=== PATIENT | female | born 1985 | race Caucasian/White ===

== ENCOUNTER → 2016-11-16 | Outpatient (CLI) | payer BC ==
[~2016-11-16] MED LIST: ATV/1 PO; BIOF500C2 PO; DOXY25TA19 PO; EFFSR150 PO; IBUP-1428 PO; ONDA4TAB46 PO; OXCA300T PO; PRT/40 PO; SUMA6KIT INJ; WLLXL300 PO; ZOLP10TA PO
[2016-11-18 22:30] LABS: HCT 37.3 % (35.0-45.0); HEMOGLOBIN A2 2.2 % (1.8-3.5); HGB 11.8 g/dL (11.7-15.5); MCH 24.3 pg (27.0-33.0); MCV 76.7 FL (80.0-100.0); RBC 4.86 Mill/uL (3.80-5.10); RDW 24.6 % (11.0-15.0)
== END | disposition home or self-care (01) ==
LOC: C.LAB1850 11:09
PROVIDERS: ATTEND Internal Medicine Hematology
DX: D50.0 Iron deficiency anemia secondary to blood loss (chronic) (principal); D56.1 Beta thalassemia

== ENCOUNTER → 2017-02-13 | Outpatient (CLI) | payer BC, OTHER ==
[~2017-02-13] VITALS: Ht 180.3 cm; Wt 132.0 kg
[~2017-02-13] MED LIST changes: +BNT10 PO; +EFF75 PO; +EFFSR75 PO; +FAMO20TA11 PO; +FAMO20TA9 PO; +MRLP17X PO; +ONDA4TAB10 SL; +OXCA300T4 PO; +PANT40TA PO; +PANT40TA2 PO; -PRT/40 PO; +SUMA6KIT SC; +TRAZ50TA35 PO; +VENL150C56 PO; +VENL150T33 PO; +VENL75CA73 PO
[2017-02-13 15:00] VITALS: Ht 180.3 cm; Wt 132.0 kg
--- NOTE | 2017-02-13 15:27 | PAT Medication Instructions ---
Service Date Feb 13, 2017. Current Home Medication List Bioflavonoid Products (Vitamin C), 1 TAB PO PRN Bupropion HCl (Bupropion HCl Xl), 300 MG PO HS Doxylamine Succinate (Sleep) (Sleep Aid), 50 MG PO HS PRN for RN Ibuprofen (Motrin), 800 MG PO PRN PRN for Pain Lorazepam (Ativan), 1 MG PO PRN Ondansetron Hcl (Zofran), 4 MG PO PRN PRN for Nausea Oxcarbazepine (Trileptal), 900 MG PO HS Sumatriptan Succinate (Imitrex Statdose), 0.5 ML INJ PRN Venlafaxine Hcl (Effexor Extended Rel), 300 MG PO HS Zolpidem Tartrate (Ambien), 10 MG PO HS PRN for PRN Medication Instructions For Your Scheduled Surgery Ibuprofen (Motrin), 800 MG PO PRN PRN for Pain (check with surgeon for instructions) - Hold the following medications the morning of surgery: Sumatriptan Succinate (Imitrex Statdose), 0.5 ML INJ PRN Bioflavonoid Products (Vitamin C), 1 TAB PO PRN - Take the following medications the morning of surgery with a sip of water: Ondansetron Hcl (Zofran), 4 MG PO PRN PRN for Nausea Lorazepam (Ativan), 1 MG PO PRN - Take the following medications as scheduled the night before surgery: Zolpidem Tartrate (Ambien), 10 MG PO HS PRN for PRN Venlafaxine Hcl (Effexor Extended Rel), 300 MG PO HS Sumatriptan Succinate (Imitrex Statdose), 0.5 ML INJ PRN Oxcarbazepine (Trileptal), 900 MG PO HS Ondansetron Hcl (Zofran), 4 MG PO PRN PRN for Nausea Lorazepam (Ativan), 1 MG PO PRN Doxylamine Succinate (Sleep) (Sleep Aid), 50 MG PO HS PRN for RN Bupropion HCl (Bupropion HCl Xl), 300 MG PO HS Bioflavonoid Products (Vitamin C), 1 TAB PO PRN If you have any questions please call us at [phone] (Lin Winn PA-C) or [phone] or [phone]
[2017-02-13 16:11] LABS: BUN/CREATININE RATIO 16.4 (10-20); CALCIUM 9.2 mg/dl (8.5-10.1); CREATININE 0.89 mg/dl (0.60-1.20); POTASSIUM 4.2 mmol/L (3.5-5.1)
== END | disposition home or self-care (01) ==
LOC: C.LAB 14:30 → EDSTATUS 03-03 07:00
PROVIDERS: ATTEND Obstetrics & Gynecology
DX: Z01.812 Encounter for preprocedural laboratory examination (principal)

== ENCOUNTER 2017-08-22 09:48 | Emergency (ER) | payer BC ==
[~2017-08-22] VITALS: Ht 180.3 cm; Wt 131.6 kg
[~2017-08-22 09:48] MED LIST changes: -BNT10 PO; -EFF75 PO; -EFFSR75 PO; -FAMO20TA11 PO; -FAMO20TA9 PO; -MRLP17X PO; -ONDA4TAB10 SL; -OXCA300T4 PO; -PANT40TA PO; -PANT40TA2 PO; -SUMA6KIT SC; -TRAZ50TA35 PO; -VENL150C56 PO; -VENL150T33 PO; -VENL75CA73 PO
[2017-08-22 09:50] VITALS: TEMP 36.8; Ht 180.3 cm; Wt 131.6 kg
[2017-08-22] MEDS ORDERED: MoRPHine SULFATE 4 MG/ML 1 ML CARP\\VIAL IV STA (10:17)
[2017-08-22] MEDS ORDERED: SODIUM CHLORIDE 0.9% 1000ML 1,000 ML IV STA ×2 (10:17)
[2017-08-22] MEDS ORDERED: ONDANSETRON INJ 2 MG/ML 2 ML VIAL IV STA (10:17)
--- NOTE | 2017-08-22 10:26 | EMERGENCY ROOM VISIT NOTE ---
History Report prepared by Shady: Sherry Wilhelm Under the Supervision of: Dr. Juan Perez M.D. First contact with patient: 09:56 Chief Complaint: ABDOMINAL PAIN Stated Complaint: SEVERE RIGHT SIDE AB PAIN Nursing Triage Summary: Right sided abd pain, nausea. History of Present Illness The patient is a 32 year old white female with no significant past medical history who presents to the ED with a cc of constant right-sided abdominal pain beginning 5 hours [employer]. She initially woke up around 4:30 am with this pain and thought it was gas. She tried to have a bowel movement, but her symptoms persisted. She tried eating yogurt, but it did not help. She did not take anything for her pain. The patient had one episode of diarrhea at 7:30. She does not think that she ate anything unusual. She states that often has pain after eating fried and fatty foods, so she is careful about what she eats. Pt rates her current pain as an 8/10 in severity. Positive nausea, upper back pain. Negative fevers, chills, cough, chest pain, vomiting, lower back pain, and urinary symptoms. Pt denies sick contacts. Pt denies recent travel, recent camping, and recent antibiotic use. Source of History: patient Onset: 5 hours [employer] Position: abdomen (right) Symptom Intensity: 8/10 Timing: constant Associated Symptoms: + nausea, + back pain (upper ), + diarrhea, No fevers, No chills, No cough, No chest pain, No vomiting, No urinary symptoms Review of Systems See HPI for pertinent positives and negatives. A total of ten systems were reviewed and were otherwise negative. Past Medical & Surgical Medical Problems: (1) Depressive Disorder Nec (2) Migraine Surgical Problems: (1) Hx of section (2) Hx of hysterectomy Family History Cancer Diabetes mellitus FH: heart disease Hypertension Social History Smoking Status: Never Smoker Alcohol Use: none Drug Use: none Marital Status: single Housing Status: lives with family Occupation Status: employed Current/Historical Medications Scheduled Bupropion HCl (Bupropion HCl Xl), 300 MG PO QAM Famotidine (Pepcid), 1 TAB PO BID Ondasetron Odt (Zofran Odt), 4 MG SL Q6H Oxcarbazepine (Trileptal), 600 MG PO HS Oxcarbazepine (Trileptal), 300 MG PO QAM Venlafaxine Hcl (Effexor Extended Rel), 300 MG PO HS Venlafaxine Hcl (Effexor), 75 MG PO DAILY Scheduled PRN Trazodone Hcl (Trazodone), 50-100 MG PO HS PRN for Sleep Allergies Coded Allergies: Adhesives (Unverified Allergy, Unknown, skin irritation with some tapes, 08/22/17) Pseudoephedrine (Verified Adverse Reaction, Intermediate, INC HR, N/V, ) Physical Exam Vital Signs Date Time Temp Pulse Resp B/P (MAP) Pulse Ox O2 Delivery O2 Flow Rate FiO2 08/22/17 14:25 81 18 104/71 98 Room Air 08/22/17 11:44 83 17 124/65 08/22/17 11:07 08/22/17 11:00 115/80 08/22/17 10:57 86 22 122/78 08/22/17 10:10 87 08/22/17 10:07 91 16 107/63 99 08/22/17 09:50 36.8 84 18 115/74 100 Room Air Physical Exam GENERAL: Awake, alert, mildly uncomfortable-appearing, NAD HENT: Normocephalic, atraumatic. EYES: Normal conjunctiva. Sclera non-icteric. NECK: Supple. No nuchal rigidity. FROM. RESPIRATORY: CTAB, no rhonchi, wheezing, crackles CARDIAC: RRR, no MRG ABDOMEN: Soft, intense RUQ pain, positive Orozco's, no lower abdominal TTP, BS+ , no CVA TTP. MSK: No chest wall TTP, no LE edema NEURO: GCS 15, CN 2-12 intact, moves all 4s on command SKIN: No rash or jaundice noted. Medical Decision & Procedures ER Provider Diagnostic Interpretation: Radiology results as stated below per my review and radiologist interpretation: CHEST ONE VIEW PORTABLE CLINICAL HISTORY: Severe right-sided abdominal pain COMPARISON STUDY: 09/08/2016 FINDINGS: The cardiac and mediastinal contours are normal. There is no evidence of focal pulmonary consolidation. There is no evidence of failure. No pleural effusions are visualized.[No free intraperitoneal air is visualized. IMPRESSION: No active disease in the chest. Electronically signed by: Jonas Penn M.D. 08/22/2017 10:37 AM Dictated Date/Time: 08/22/2017 10:37 AM ULTRASOUND RIGHT UPPER QUADRANT ABDOMEN CLINICAL HISTORY: Nausea. Right upper quadrant abdominal pain. COMPARISON STUDY: Abdominal CT dated 03/12/2014. TECHNIQUE: Real-time, grayscale, and color flow sonography of the right upper quadrant of the abdomen was performed. Images are reviewed in the transverse and longitudinal planes. The examination is degraded by large body habitus. FINDINGS: Liver: The liver is enlarged, measuring over 19 cm in length. The liver demonstrates heterogeneously increased echotexture consistent with hepatic steatosis. There is no intrahepatic biliary ductal dilatation. The main portal vein is patent. Gallbladder: The gallbladder is normal in appearance. No gallstones are identified. There is no gallbladder wall thickening or pericholecystic fluid. A sonographic Orozco's sign is reportedly absent. The common bile duct measures up to 0.4 cm in diameter. Pancreas: Not well visualized due to overlying bowel gas. Right kidney: Survey images of the right kidney demonstrate normal size and echotexture. There is no hydronephrosis. Ascites: None. IMPRESSION: 1. No acute sonographic abnormality is identified. No shadowing gallstones are seen. 2. Hepatomegaly and hepatic steatosis. 3. The pancreas was not well visualized due to overlying bowel gas. Electronically signed by: Lukas Aleman M.D. 08/22/2017 11:41 AM Dictated Date/Time: 08/22/2017 11:[address] SCAN OF THE ABDOMEN AND PELVIS WITH IV CONTRAST CLINICAL HISTORY: Right upper quadrant abdominal pain. COMPARISON STUDY: Abdominal CT dated 03/12/2014. Abdominal ultrasound dated 08/22/2017. TECHNIQUE: Following the IV administration of 92 cc of Optiray 320, CT scan of the abdomen and pelvis is performed from the lung bases to the proximal femora. Images are reviewed in the axial, sagittal, and coronal planes. IV contrast was administered without complication. A dose lowering technique was utilized adhering to the principles of ALARA. CT DOSE: 1823.51 mGy.cm FINDINGS: Lung bases: The heart is normal in size and without pericardial effusion. The lung bases are clear noting dependent atelectasis. Liver: The contrast-enhanced liver is enlarged, measuring 24.6 cm in length. The liver demonstrates diffusely diminished attenuation consistent with hepatic steatosis. Fatty sparing is seen adjacent to gallbladder fossa. There is no intrahepatic biliary ductal dilatation. The hepatic veins and portal veins are patent. Gallbladder: Unremarkable. Spleen: Normal in size and attenuation. Pancreas: Unremarkable. Adrenal glands: Unremarkable. Kidneys: The contrast enhanced kidneys are normal in size and without hydronephrosis. The kidneys enhance symmetrically. Abdominal vasculature: The abdominal aorta is normal in course and caliber. Bowel: Mild colonic fecal retention is observed. There is no bowel obstruction. The appendix is well-visualized and normal. Peritoneum: There is no intraperitoneal free air or abdominal ascites. There is a fat-containing umbilical hernia. Lymphadenopathy: None. Pelvic viscera: The bladder is normal as visualized. The uterus is surgically absent. No adnexal lesion is seen. Trace free fluid is identified in the cul-de-sac. Skeletal structures: No lytic or blastic lesions are seen. Mild sclerotic change is noted in the sacroiliac joints. IMPRESSION: 1. There are no acute infectious or inflammatory findings in the abdomen or pelvis. 2. Hepatomegaly and hepatic steatosis. 3. There is trace and likely physiologic free fluid in the cul-de-sac. Electronically signed by: Lukas Aleman M.D. 08/22/2017 12:34 PM Dictated Date/Time: 08/22/2017 12:28 PM Laboratory Results 08/22/17 10:17 Red Blood Count 4.72, Mean Corpuscular Volume 82.2, Mean Corpuscular Hemoglobin 26.7, Mean Corpuscular Hemoglobin Concent 32.5, Mean Platelet Volume 10.0, Neutrophils (%) (Auto) 79.9, Lymphocytes (%) (Auto) 13.8, Monocytes (%) (Auto) 4.9, Eosinophils (%) (Auto) 1.0, Basophils (%) (Auto) 0.2, Neutrophils # (Auto) 9.71, Lymphocytes # (Auto) 1.68, Monocytes # (Auto) 0.59, Eosinophils # (Auto) 0.12, Basophils # (Auto) 0.03 08/22/17 10:17 Test 08/22/17 00:00 08/22/17 10:17 Urine Color YELLOW Urine Appearance CLOUDY (CLEAR) Urine pH 6.0 (4.5-7.5) Urine Specific [place] 1.030 (1.000-1.030) Urine Protein NEG (NEG) Urine Glucose (UA) NEG (NEG) Urine Ketones TRACE (NEG) Urine Occult Blood NEG (NEG) Urine Nitrite NEG (NEG) Urine Bilirubin NEG (NEG) Urine Urobilinogen NEG (NEG) Urine Leukocyte Esterase NEG (NEG) Urine WBC (Auto) 1-5 /hpf (0-5) Urine RBC (Auto) 0-4 /hpf (0-4) Urine Hyaline Casts (Auto) 1-5 /lpf (0-5) Urine Epithelial Cells (Auto) >30 /lpf (0-5) Urine Bacteria (Auto) 1+ (NEG) White Blood Count 12.16 K/uL (4.8-10.8) Red Blood Count 4.72 M/uL (4.2-5.4) Hemoglobin 12.6 g/dL (12.0-16.0) Hematocrit 38.8 % (37-47) Mean Corpuscular Volume 82.2 fL (80-100) Mean Corpuscular Hemoglobin 26.7 pg (25-34) Mean Corpuscular Hemoglobin Concent 32.5 g/dl (32-36) Platelet Count 245 K/uL (130-400) Mean Platelet Volume 10.0 fL (7.4-10.4) Neutrophils (%) (Auto) 79.9 % Lymphocytes (%) (Auto) 13.8 % Monocytes (%) (Auto) 4.9 % Eosinophils (%) (Auto) 1.0 % Basophils (%) (Auto) 0.2 % Neutrophils # (Auto) 9.71 K/uL (1.4-6.5) Lymphocytes # (Auto) 1.68 K/uL (1.2-3.4) Monocytes # (Auto) 0.59 K/uL (0.11-0.59) Eosinophils # (Auto) 0.12 K/uL (0-0.5) Basophils # (Auto) 0.03 K/uL (0-0.2) RDW Standard Deviation 44.1 fL (36.4-46.3) RDW Coefficient of Variation 14.6 % (11.5-14.5) Immature Granulocyte % (Auto) 0.2 % Immature Granulocyte # (Auto) 0.03 K/uL (0.00-0.02) Anion Gap 6.0 mmol/L (3-11) Est Creatinine Clear Calc Drug Dose 130.8 ml/min Estimated GFR () 95.4 Estimated GFR (Non- 82.3 BUN/Creatinine Ratio 14.0 (10-20) Calcium Level 8.9 mg/dl (8.5-10.1) Total Bilirubin 0.2 mg/dl (0.2-1) Direct Bilirubin < 0.1 mg/dl (0-0.2) Aspartate Amino Transf (AST/SGOT) 13 U/L (15-37) Alanine Aminotransferase (ALT/SGPT) 18 U/L (12-78) Alkaline Phosphatase 103 U/L (45-117) Total Protein 7.7 gm/dl (6.4-8.2) Albumin 3.7 gm/dl (3.4-5.0) Lipase 185 U/L (73-393) Laboratory results reviewed by me. Medications Administered Medications (Trade) Dose Ordered Sig/Christine Route Start Time Stop Time Status Last Admin Dose Admin Sodium Chloride 1,000 ml @ 999 mls/hr Q1H1M STAT IV 08/22/17 10:17 08/22/17 11:17 DC 08/22/17 10:28 999 MLS/HR Ondansetron HCl (Zofran Inj) 4 mg NOW STAT IV 08/22/17 10:17 08/22/17 10:20 DC 08/22/17 10:26 4 MG Sodium Chloride 1,000 ml @ 999 mls/hr Q1H1M STAT IV 08/22/17 10:17 08/22/17 11:17 DC 08/22/17 10:17 999 MLS/HR Morphine Sulfate (MoRPHine SULFATE INJ) 8 mg NOW STAT IV 08/22/17 10:17 08/22/17 10:20 DC 08/22/17 10:28 8 MG Hydromorphone HCl (Dilaudid Inj) 1 mg Q15M PRN IV 08/22/17 12:00 08/22/17 15:13 DC 08/22/17 12:08 1 MG Ibuprofen (Motrin Tab) 600 mg NOW STAT PO 08/22/17 11:57 08/22/17 11:58 DC 08/22/17 12:11 600 MG Acetaminophen (Tylenol Tab) 1,000 mg NOW STAT PO 08/22/17 11:57 08/22/17 11:58 DC 08/22/17 12:14 1,000 MG Diazepam (Valium Tab) 5 mg NOW ONCE PO 08/22/17 13:15 08/22/17 13:16 DC 08/22/17 13:32 5 MG ECG Indication: abdominal pain (86) Rate (beats per minute): 86 Rhythm: normal sinus Findings: no acute ischemic change, no ectopy, other (normal axis, normal intervals) ED Course 1010: The patient was evaluated in room B7. A complete history and physical exam was performed. 1017: Morphine sulfate 8 mg IV, NSS 1000 ml @ 999 mls/hr IV, Zofran 4 mg IV, NSS 1000 ml @ 999 mls/hr IV 1153: Upon reevaluation the patient is still having pain. 1157: Tylenol 1000 mg PO, Motrin 600 mg PO 1200: Dilaudid 1 mg IV - PRN 1315: Valium 5 mg PO 1336: I reassessed the patient at this time. She is feeling better and resting comfortably. I discussed the results and treatment plan with the patient. I answered all pertaining questions that she had. She expressed understanding and verbalized agreement. The patient will be discharged home. Medical Decision The patient is a 32 year old white female with no significant past medical history who presents to the ED with a cc of constant right-sided abdominal pain beginning 5 hours [employer]. Differential diagnosis: Etiologies such as appendicitis, diverticulitis, PUD, biliary pathology, UTI, pancreatitis, obstruction, mesenteric ischemia, aortic pathology, infections, inflammatory bowel disease, renal colic, as well as others were entertained. Patient was seen and evaluated the bedside. Patient was complaining of some right-sided abdominal pain beginning early this morning. Patient states she try some yogurt which did not affect her pain. Patient denies stream or well water, recent travel, recent antibiotics. Patient has not taken anything for pain. Patient has had nausea but without vomiting. Patient does not have any measure. That she had a prior hysterectomy. Patient did have blood work, supportive care and a right upper quadrant ultrasound as well as a chest x-ray completed. Patient's blood work was completed and fairly unremarkable. Patient 's LFTs and lipase within normal limits. UA was not infected. Patient did have a right upper quadrant ultrasound which showed no abnormalities. Patient furthermore was still having pain. Patient's area was reassessed no rashes or vesicles noted. Patient had a clear chest x-ray. Patient did have a CT the abdomen pelvis showed no other abnormalities. Patient was informed of these findings. Patient initially was prescribed some Zofran however after speaking with pharmacy was concerned as the patient is on high dose of venlafaxine and thus were told just to try some Maalox in addition to Motrin and Tylenol. Patient was told that if she has worsening symptoms she should consider following up with her PCP in obtaining gastroenterology follow-up versus returning to the emergency department. Patient was not believed to have a medical or surgical emergency at this time was given strict follow-up, discharge , and return precautions. We discussed this at length and they agreed with the plan of care. Patient was safely discharged home. Medication Reconcilliation Current Medication List: was personally reviewed by me Blood Pressure Screening Patient's blood pressure: Normal blood pressure Impression Primary Impression: Abdominal pain Additional Impression: Nausea Scribe Attestation The scribe's documentation has been prepared under my direction and personally reviewed by me in its entirety. I confirm that the note above accurately reflects all work, treatment, procedures, and medical decision making performed by me. Departure Information Dispostion Home / Self-Care Prescriptions Famotidine (PEPCID) 20 Mg Tab 1 TAB PO BID for 30 Days, #60 TAB 3 Refills Prov: Juan Perez M.D. 08/22/17 Ondasetron Odt (ZOFRAN ODT) 4 Mg Tab 4 MG SL Q6H for Nausea, #6 TAB Prov: Juan Perez M.D. 08/22/17 Referrals Tao Moran M.D. (PCP) Patient Instructions Abdominal Pain, [facility] Additional Instructions Please return to the emergency department if you have worsening or recurrent symptoms not amenable to at-home treatment. Please call for a follow-up appointment with her primary care physician. Please take your medications as prescribed. If you have other concerns and/or complaints please feel free to also call your primary care physician's office or return the ED for further evaluation, management, and treatment. You were found to have an elevated blood pressure today (>120 sytolic or >90 diastolic). Per medicare guidelines, you need to follow up with this blood pressure screening with your Primary Care Physician (PCP). For a new PCP call [phone]. You received narcotic or benzodiazepene medication while in the emergency room today. This is an addictive medication that may cause drowziness as well as constipation. Do not drive, operate heavy machinery, or drink alcohol under the influence of this medication. You may take 600 mg Ibuprofen every 6 hours as needed for pain with food for no more than 2 consecutive days. You may take tylenol 1000mg every 6 hours as needed for pain. You may take motrin and tylenol separately or at the same time. You have been examined and treated today on an emergency basis only. This is not a substitute for, or an effort to provide, complete comprehensive medical care. It is impossible to recognize and treat all injuries or illnesses in a single emergency department visit. It is therefore important that you follow up closely with [facility]. Call as soon as possible for an appointment. Thank you for your time and consideration. I look forward to speaking with you again soon. Please don't hesitate to call us if you have any questions. Problem Qualifiers Primary Impression: Abdominal pain Abdominal location: right upper quadrant Qualified Codes: R10.11 - Right upper quadrant pain
--- NOTE | 2017-08-22 10:39 | DIAGNOSTIC IMAGING REPORT ---
CHEST ONE VIEW PORTABLE CLINICAL HISTORY: Severe right-sided abdominal pain COMPARISON STUDY: 09/08/2016 FINDINGS: The cardiac and mediastinal contours are normal. There is no evidence of focal pulmonary consolidation. There is no evidence of failure. No pleural effusions are visualized.[No free intraperitoneal air is visualized. IMPRESSION: No active disease in the chest. Electronically signed by: Jonas Penn M.D. 08/22/2017 10:37 AM Dictated Date/Time: 08/22/2017 10:37 AM
[2017-08-22 10:43] LABS: BASO % 0.2 %; BASO ABS # 0.03 K/uL (0-0.2); COMPLETE YES; HEMATOCRIT 38.8 % (37-47); IG% 0.2 %; LYMPH % 13.8 %; LYMPH ABS # 1.68 K/uL (1.2-3.4); MEAN CELL VOLUME 82.2 fL (80-100); MEAN CORPUSCULAR HEMOGLOBIN 26.7 pg (25-34); MEAN CORPUSCULAR HGB CONC 32.5 g/dl (32-36); MONO % 4.9 %; NEUT % 79.9 %; PLATELET COUNT 245 K/uL (130-400); RED BLOOD COUNT 4.72 M/uL (4.2-5.4); WHITE BLOOD COUNT 12.16 K/uL (4.8-10.8)
[2017-08-22 10:51] LABS: URINE APPEARANCE CLOUDY (CLEAR); URINE BILIRUBIN NEG (NEG); URINE COLOR YELLOW; URINE EPITHELIAL CELL AUTO >30 /lpf (0-5); URINE NITRITE NEG (NEG); UROBILINOGEN NEG (NEG); ZZUR CULT IF INDIC CLEAN CATCH YES
[2017-08-22 10:54] LABS: MANUAL MICROSCOPIC REQUIRED? NO; REVIEW REQ? NO
[2017-08-22] MEDS ORDERED: OXCA300T4 PO (11:00)
[2017-08-22] MEDS ORDERED: EFF75 PO (11:00)
[2017-08-22] MEDS ORDERED: TRAZ50TA35 PO (11:00)
[2017-08-22 11:13] LABS: AST/SGOT 13 U/L (15-37)
[2017-08-22 11:15] LABS: CREATININE 0.91 mg/dl (0.60-1.20)
[2017-08-22 11:16] LABS: ALKALINE PHOSPHATASE 103 U/L (45-117); ALT/SGPT 18 U/L (12-78); BLOOD UREA NITROGEN 13 mg/dl (7-18); CALCIUM 8.9 mg/dl (8.5-10.1); CARBON DIOXIDE 28 mmol/L (21-32); CHLORIDE 105 mmol/L (98-107); GLUCOSE 97 mg/dl (70-99); POTASSIUM 4.5 mmol/L (3.5-5.1); SODIUM 139 mmol/L (136-145)
--- NOTE | 2017-08-22 11:42 | DIAGNOSTIC IMAGING REPORT ---
ULTRASOUND RIGHT UPPER QUADRANT ABDOMEN CLINICAL HISTORY: Nausea. Right upper quadrant abdominal pain. COMPARISON STUDY: Abdominal CT dated 03/12/2014. TECHNIQUE: Real-time, grayscale, and color flow sonography of the right upper quadrant of the abdomen was performed. Images are reviewed in the transverse and longitudinal planes. The examination is degraded by large body habitus. FINDINGS: Liver: The liver is enlarged, measuring over 19 cm in length. The liver demonstrates heterogeneously increased echotexture consistent with hepatic steatosis. There is no intrahepatic biliary ductal dilatation. The main portal vein is patent. Gallbladder: The gallbladder is normal in appearance. No gallstones are identified. There is no gallbladder wall thickening or pericholecystic fluid. A sonographic Orozco's sign is reportedly absent. The common bile duct measures up to 0.4 cm in diameter. Pancreas: Not well visualized due to overlying bowel gas. Right kidney: Survey images of the right kidney demonstrate normal size and echotexture. There is no hydronephrosis. Ascites: None. IMPRESSION: 1. No acute sonographic abnormality is identified. No shadowing gallstones are seen. 2. Hepatomegaly and hepatic steatosis. 3. The pancreas was not well visualized due to overlying bowel gas. Electronically signed by: Lukas Aleman M.D. 08/22/2017 11:41 AM Dictated Date/Time: 08/22/2017 11:39 AM
[2017-08-22] MEDS ORDERED: ACETAMINOPHEN 500 MG TAB PO STA (11:57)
[2017-08-22] MEDS ORDERED: IBUPROFEN 600 MG TAB PO STA (11:57)
[2017-08-22] MEDS ORDERED: OPTIRAY 320 IV PRN (12:00)
[2017-08-22] MEDS ORDERED: HYDROmorphone INJ 1 MG/ML SYR IV PRN (12:00)
--- NOTE | 2017-08-22 12:35 | DIAGNOSTIC IMAGING REPORT ---
CT SCAN OF THE ABDOMEN AND PELVIS WITH IV CONTRAST CLINICAL HISTORY: Right upper quadrant abdominal pain. COMPARISON STUDY: Abdominal CT dated 03/12/2014. Abdominal ultrasound dated 08/22/2017. TECHNIQUE: Following the IV administration of 92 cc of Optiray 320, CT scan of the abdomen and pelvis is performed from the lung bases to the proximal femora. Images are reviewed in the axial, sagittal, and coronal planes. IV contrast was administered without complication. A dose lowering technique was utilized adhering to the principles of ALARA. CT DOSE: 1823.51 mGy.cm FINDINGS: Lung bases: The heart is normal in size and without pericardial effusion. The lung bases are clear noting dependent atelectasis. Liver: The contrast-enhanced liver is enlarged, measuring 24.6 cm in length. The liver demonstrates diffusely diminished attenuation consistent with hepatic steatosis. Fatty sparing is seen adjacent to gallbladder fossa. There is no intrahepatic biliary ductal dilatation. The hepatic veins and portal veins are patent. Gallbladder: Unremarkable. Spleen: Normal in size and attenuation. Pancreas: Unremarkable. Adrenal glands: Unremarkable. Kidneys: The contrast enhanced kidneys are normal in size and without hydronephrosis. The kidneys enhance symmetrically. Abdominal vasculature: The abdominal aorta is normal in course and caliber. Bowel: Mild colonic fecal retention is observed. There is no bowel obstruction. The appendix is well-visualized and normal. Peritoneum: There is no intraperitoneal free air or abdominal ascites. There is a fat-containing umbilical hernia. Lymphadenopathy: None. Pelvic viscera: The bladder is normal as visualized. The uterus is surgically absent. No adnexal lesion is seen. Trace free fluid is identified in the cul-de-sac. Skeletal structures: No lytic or blastic lesions are seen. Mild sclerotic change is noted in the sacroiliac joints. IMPRESSION: 1. There are no acute infectious or inflammatory findings in the abdomen or pelvis. 2. Hepatomegaly and hepatic steatosis. 3. There is trace and likely physiologic free fluid in the cul-de-sac. Electronically signed by: Lukas Aleman M.D. 08/22/2017 12:34 PM Dictated Date/Time: 08/22/2017 12:28 PM
[2017-08-22] MEDS ORDERED: DIAZEPAM 5MG TAB PO ONE (13:15)
[2017-08-22] MEDS ORDERED: FAMO20TA9 PO (14:00)
[2017-08-22] MEDS ORDERED: ONDA4TAB10 SL (14:00)
[2017-08-22 14:25] VITALS: BP 104/71; PULSE 81; O2SAT 98
[2017-08-23] MEDS ORDERED: ONDA4TAB10 SL (17:55)
[2017-08-23] MEDS ORDERED: FAMO20TA11 PO (17:55)
[2017-08-23] MEDS ORDERED: SUMA6KIT SC (23:04)
[2017-08-23] MEDS ORDERED: PANT40TA PO (23:04)
[2017-08-23] MEDS ORDERED: ATV/1 PO (23:04)
[2017-08-23] MEDS ORDERED: EFFSR75 PO (23:10)
[2017-08-23] MEDS ORDERED: VENL150C56 PO (23:10)
[2017-08-23] MEDS ORDERED: TRAZ50TA35 PO (23:10)
== END 2017-08-22 14:26 | disposition home or self-care (01) ==
LOC: C.EDB 09:50
DX: R10.11 Right upper quadrant pain (principal); R11.0 Nausea; F32.9 Major depressive disorder, single episode, unspecified; Z90.710 Acquired absence of both cervix and uterus; Z80.9 Family history of malignant neoplasm, unspecified; Z83.3 Family history of diabetes mellitus; Z82.49 Family history of ischemic heart disease and other diseases of the circulatory system; Z79.899 Other long term (current) drug therapy

== ENCOUNTER 2017-08-23 17:20 | Inpatient (IN) | payer BC ==
[~2017-08-23] VITALS: Ht 180.3 cm; Wt 131.5 kg
[~2017-08-23 17:20] MED LIST changes: -ATV/1 PO; -BIOF500C2 PO; -DOXY25TA19 PO; +EFF75 PO; +FAMO20TA9 PO; -IBUP-1428 PO; +ONDA4TAB10 SL; -ONDA4TAB46 PO; +OXCA300T4 PO; -SUMA6KIT INJ; +TRAZ50TA35 PO; -ZOLP10TA PO
[2017-08-23] MEDS ORDERED: PROMETHAZINE HCL INJ 25 MG/ML 1 ML VIAL IV STA (17:35)
[2017-08-23] MEDS ORDERED: PROMETHAZINE HCL INJ 12.5 MG in SODIUM CHLORIDE 0.9% 50ML 50 ML IV ONE (17:35)
[2017-08-23] MEDS ORDERED: SODIUM CHLORIDE 0.9% 1000ML 2,000 ML IV STA (17:35)
--- NOTE | 2017-08-23 17:46 | EMERGENCY ROOM VISIT NOTE ---
History Report prepared by Shady: J Carlos Bernstein Under the Supervision of: Dr. Lukas Joy M.D. First contact with patient: 17:31 Chief Complaint: ABDOMINAL PAIN Stated Complaint: SEVERE RIGHT SIDE ABDOMINAL PAIN,DIARRHEA Nursing Triage Summary: pt c/o right sided abd pain, +n/v/d today. Seen in ED yesterday for the same. unable to f/u with PCP until Monday. also reports welts to right arm. trying Pepcid and Mylanta at home with no relief History of Present Illness The patient is a 32 year old female who presents to the Emergency Room with complaints of a persistent illness that started yesterday morning. She says that she woke up around 0400 yesterday with terrible right-sided pain abdominal pain. The patient states that she then vomited a couple times, and had some diarrhea. She notes that her pain was stabbing. She says that she was seen here around 1000 yesterday, and everything checked out fine. The patient had a negative ultrasound and negative CT of her abdomen/pelvis. Her white blood cell count was 12. She notes that she was fine the day before yesterday, and she did not eat any problematic foods or have any recent sick contacts. The patient states that her pain has persisted. She woke up this morning with severe diarrhea that was much worse than yesterday, and she adds that she vomited this morning. The patient says that she cannot keep anything down. She notes that her pain has gotten as bad as a 10 out of 10 in severity and she adds that she gets short of breath due to the pain. The patient states that she has never had an illness like this before to this extent. She denies any fevers, cough, or urinary symptoms. She notes no history of kidney stones or gallbladder issues. Per the patient's family, the patient's doctor has been looking into some reflux -like pain that the patient has been having after eating which has been going on for a month or so. Source of History: patient, family Onset: Yesterday morning Position: other (global - illness) Symptom Intensity: pain as bad as 10/10 in severity Timing: other (persistent) Associated Symptoms: + SOB (due to pain), + vomiting, + abdominal pain ( right sided), + diarrhea, No fevers, No cough, No urinary symptoms Note: No other associated symptoms noted. Review of Systems See HPI for pertinent positives & negatives. A total of 10 systems reviewed and were otherwise negative. Past Medical & Surgical Medical Problems: (1) Depressive Disorder Nec (2) Migraine Surgical Problems: (1) Hx of section (2) Hx of hysterectomy Family History Cancer Diabetes mellitus FH: heart disease Hypertension Social History Smoking Status: Never Smoker Alcohol Use: none Drug Use: none Marital Status: single Housing Status: lives with family Occupation Status: employed Current/Historical Medications Scheduled Bupropion HCl (Bupropion HCl Xl), 300 MG PO QAM Famotidine (Pepcid), 20 MG PO BID Ondasetron Odt (Zofran Odt), 4 MG SL Q6H Oxcarbazepine (Trileptal), 600 MG PO HS Oxcarbazepine (Trileptal), 300 MG PO QAM Venlafaxine Hcl (Effexor Extended Rel), 300 MG PO HS Venlafaxine Hcl (Effexor), 75 MG PO DAILY Scheduled PRN Trazodone Hcl (Trazodone), 50-100 MG PO HS PRN for Sleep Allergies Coded Allergies: Adhesives (Unverified Allergy, Unknown, skin irritation with some tapes, 08/23/17) Pseudoephedrine (Verified Adverse Reaction, [facility] HR, N/V, ) Physical Exam Vital Signs Date Time Temp Pulse Resp B/P (MAP) Pulse Ox O2 Delivery O2 Flow Rate FiO2 08/23/17 21:20 82 99 08/23/17 21:05 91 100 08/23/17 21:00 121/67 08/23/17 20:50 88 92 08/23/17 20:35 77 99 08/23/17 20:30 116/65 08/23/17 20:30 82 18 116/65 100 Room Air 08/23/17 20:20 76 100 08/23/17 19:15 80 100 08/23/17 19:00 72 145/90 99 08/23/17 18:50 138/85 08/23/17 18:14 79 20 139/87 98 Room Air 08/23/17 17:27 37.1 85 18 139/84 96 Room Air Physical Exam GENERAL: Patient is in no acute distress. HEENT: No acute trauma, normocephalic atraumatic, mucous membranes dry, no nasal congestion, no scleral icterus. NECK: No stridor, no adenopathy, no meningismus, trachea is midline. LUNGS: Clear to auscultation bilaterally, no wheeze, no rhonchi, breath sounds equal. HEART: Tachycardic with a regular rhythm. No murmurs. BACK: Right flank discomfort with percussion. ABDOMEN: Tender along the entire right side, but mostly in the right upper quadrant. Soft, bowel sounds positive, no hernias, no peritonitis. EXTREMITIES: No cyanosis or edema, full range of motion of all the joints without pain or difficulty, no signs for acute trauma. NEUROLOGIC: Oriented x 3, no acute motor or sensory deficits, no focal weakness. SKIN: No rash, no jaundice, no diaphoresis. Medical Decision & Procedures ER Provider Diagnostic Interpretation: Radiology results as stated below per my review and radiologist interpretation: ULTRASOUND KIDNEYS AND BLADDER CLINICAL HISTORY: Right flank pain. COMPARISON STUDY: Abdominal CT dated 08/22/2017. TECHNIQUE: Real-time, grayscale, and color flow sonography of the kidneys and bladder is performed. Images are reviewed in the transverse and longitudinal planes. FINDINGS: Kidneys: The kidneys are normal in size and echotexture. The right kidney measures 11.2 x 5.0 x 4.9 cm and the left kidney measures 9.8 x 5.1 x 4.7 cm. There is no hydronephrosis. No shadowing renal calculi are identified. There is no sonographic evidence of contour deforming renal mass lesion. No perinephric fluid is identified. Bladder: The bladder is normal in appearance. Bilateral ureteral jets were seen. Upper abdomen: Survey images of the upper abdomen show hepatomegaly and hepatic steatosis. IMPRESSION: 1. Unremarkable sonographic assessment of the kidneys and bladder. There has been no significant change from yesterday's abdominal CT scan. 2. Hepatomegaly and hepatic steatosis. Electronically signed by: Lukas Aleman M.D. 08/23/2017 8:13 PM Dictated Date/Time: 08/23/2017 8:12 PM ULTRASOUND OF THE PELVIS CLINICAL HISTORY: Right pelvic pain. COMPARISON STUDY: Pelvic CT dated 08/22/2017. TECHNIQUE: Real-time, grayscale, and color flow sonography of the pelvis is performed both transabdominally and endovaginally. Images are reviewed in the transverse and longitudinal planes. FINDINGS: Uterus: The uterus is surgically absent Ovaries: The ovaries are normal in size and morphology. The right ovary measures 3.4 x 1.8 x 2.2 cm and the left ovary measures 2.8 x 2.0 x 2.6 cm. Small ovarian follicles are observed. Normal Doppler waveforms are shown within both ovaries. Pelvis: There is a small volume of free fluid in the cul-de-sac. No concerning adnexal lesion is seen. IMPRESSION: 1. No acute sonographic abnormality is identified in the pelvis noting status post hysterectomy. 2. There is trace and likely physiologic free fluid in the cul-de-sac. Electronically signed by: Lukas Aleman M.D. 08/23/2017 8:12 PM Dictated Date/Time: 08/23/2017 8:10 PM SINGLE VIEW CHEST CLINICAL HISTORY: Generalized abdominal pain. FINDINGS: An AP, portable, upright chest radiograph is compared to study dated 08/22/2017 and correlated with chest CT dated 11/13/2013. The examination is degraded by portable technique, large body habitus, and patient rotation. The cardiomediastinal silhouette is unremarkable. There is minimal left basilar atelectasis. The lungs and pleural spaces are otherwise clear. No pneumothorax is seen. The bony thorax is grossly intact. IMPRESSION: No active disease in the chest. Electronically signed by: Lukas Aleman M.D. 08/23/2017 6:16 PM Dictated Date/Time: 08/23/2017 6:15 PM ULTRASOUND OF THE PELVIS CLINICAL HISTORY: Right pelvic pain. COMPARISON STUDY: Pelvic CT dated 08/22/2017. TECHNIQUE: Real-time, grayscale, and color flow sonography of the pelvis is performed both transabdominally and endovaginally. Images are reviewed in the transverse and longitudinal planes. FINDINGS: Uterus: The uterus is surgically absent Ovaries: The ovaries are normal in size and morphology. The right ovary measures 3.4 x 1.8 x 2.2 cm and the left ovary measures 2.8 x 2.0 x 2.6 cm. Small ovarian follicles are observed. Normal Doppler waveforms are shown within both ovaries. Pelvis: There is a small volume of free fluid in the cul-de-sac. No concerning adnexal lesion is seen. IMPRESSION: 1. No acute sonographic abnormality is identified in the pelvis noting status post hysterectomy. 2. There is trace and likely physiologic free fluid in the cul-de-sac. Electronically signed by: Lukas Aleman M.D. 08/23/2017 8:12 PM Dictated Date/Time: 08/23/2017 8:10 PM Laboratory Results 08/23/17 18:00 Red Blood Count 4.57, Mean Corpuscular Volume 81.4, Mean Corpuscular Hemoglobin 25.6, Mean Corpuscular Hemoglobin Concent 31.5, Mean Platelet Volume 10.2, Neutrophils (%) (Auto) 72.0, Lymphocytes (%) (Auto) 18.0, Monocytes (%) (Auto) 7.6, Eosinophils (%) (Auto) 1.7, Basophils (%) (Auto) 0.3, Neutrophils # (Auto) 8.01, Lymphocytes # (Auto) 2.00, Monocytes # (Auto) 0.84, Eosinophils # (Auto) 0.19, Basophils # (Auto) 0.03 08/23/17 18:00 Test 08/23/17 18:00 08/23/17 20:10 White Blood Count 11.11 K/uL (4.8-10.8) Red Blood Count 4.57 M/uL (4.2-5.4) Hemoglobin 11.7 g/dL (12.0-16.0) Hematocrit 37.2 % (37-47) Mean Corpuscular Volume 81.4 fL (80-100) Mean Corpuscular Hemoglobin 25.6 pg (25-34) Mean Corpuscular Hemoglobin Concent 31.5 g/dl (32-36) Platelet Count 263 K/uL (130-400) Mean Platelet Volume 10.2 fL (7.4-10.4) Neutrophils (%) (Auto) 72.0 % Lymphocytes (%) (Auto) 18.0 % Monocytes (%) (Auto) 7.6 % Eosinophils (%) (Auto) 1.7 % Basophils (%) (Auto) 0.3 % Neutrophils # (Auto) 8.01 K/uL (1.4-6.5) Lymphocytes # (Auto) 2.00 K/uL (1.2-3.4) Monocytes # (Auto) 0.84 K/uL (0.11-0.59) Eosinophils # (Auto) 0.19 K/uL (0-0.5) Basophils # (Auto) 0.03 K/uL (0-0.2) RDW Standard Deviation 43.2 fL (36.4-46.3) RDW Coefficient of Variation 14.5 % (11.5-14.5) Immature Granulocyte % (Auto) 0.4 % Immature Granulocyte # (Auto) 0.04 K/uL (0.00-0.02) Anion Gap 5.0 mmol/L (3-11) Est Creatinine Clear Calc Drug Dose 144.7 ml/min Estimated GFR () 108.2 Estimated GFR (Non- 93.4 BUN/Creatinine Ratio 10.2 (10-20) Lactic Acid Level 1.2 mmol/L (0.4-2.0) Calcium Level 9.1 mg/dl (8.5-10.1) Total Bilirubin 0.1 mg/dl (0.2-1) Aspartate Amino Transf (AST/SGOT) 12 U/L (15-37) Alanine Aminotransferase (ALT/SGPT) 19 U/L (12-78) Alkaline Phosphatase 101 U/L (45-117) Total Protein 7.7 gm/dl (6.4-8.2) Albumin 3.5 gm/dl (3.4-5.0) Globulin 4.2 gm/dl (2.5-4.0) Albumin/Globulin Ratio 0.8 (0.9-2) Lipase 179 U/L (73-393) Human Chorionic Gonadotropin, Qual NEG (NEG) Urine Color YELLOW Urine Appearance CLEAR (CLEAR) Urine pH 7.0 (4.5-7.5) Urine Specific [place] 1.019 (1.000-1.030) Urine Protein NEG (NEG) Urine Glucose (UA) NEG (NEG) Urine Ketones NEG (NEG) Urine Occult Blood NEG (NEG) Urine Nitrite NEG (NEG) Urine Bilirubin NEG (NEG) Urine Urobilinogen NEG (NEG) Urine Leukocyte Esterase NEG (NEG) Laboratory results reviewed by me. Medications Administered Medications (Trade) Dose Ordered Sig/Christine Route Start Time Stop Time Status Last Admin Dose Admin Sodium Chloride 2,000 ml @ 999 mls/hr Q2H1M STAT IV 08/23/17 17:35 08/23/17 19:35 DC 08/23/17 18:08 999 MLS/HR Morphine Sulfate (MoRPHine SULFATE INJ) 6 mg Q30M PRN IV 08/23/17 17:45 09/06/17 17:44 08/23/17 20:55 6 MG Morphine Sulfate (MoRPHine SULFATE INJ) 2 mg STK-MED ONCE .ROUTE 08/23/17 17:57 08/23/17 17:58 DC 08/23/17 18:09 2 MG Morphine Sulfate (MoRPHine SULFATE INJ) 4 mg STK-MED ONCE .ROUTE 08/23/17 17:57 08/23/17 17:58 DC 08/23/17 18:10 4 MG Promethazine HCl 12.5 mg/Sodium Chloride 50.5 ml @ 202 mls/hr 1735 ONCE IV 08/23/17 17:35 08/23/17 18:02 DC 08/23/17 18:09 202 MLS/HR ED Course 1732: The patient was evaluated in room B3B. A complete history and physical exam was performed. 1735: Ordered Phenergan Inj 12.5 mg IV, NSS 2000 ml @ 999 mls/hr IV. 1745: Ordered Morphine Sulfate Inj 6 mg IV PRN. 2105: Upon reexamination the patient is resting. I discussed results and treatment plan with the patient. She verbalizes agreement and understanding. The patient will be evaluated for further management. 0: I discussed the patient with Dr. Ramirez - Suzette band reamer machine operator - he will evaluate the patient for further treatment. Medical Decision Differential diagnosis includes but is not limited to renal stone, hydronephrosis, pyelonephritis, ovarian cyst or ovarian torsion, dehydration, electrolyte imbalance, anemia, viral illness, food borne illness, appendicitis, biliary colic, pancreatitis. There is a very mild leukocytosis, this could be consistent with infection or just her pain. No concerning anemia. No significant electrolyte abnormality, kidney failure or hepatitis. There is no pancreatitis. Lactic acid level is not elevated making bowel ischemia less likely. Urinalysis does not show infection or significant hematuria. Chest film does not show free air or pneumonia. Renal ultrasound does not show hydronephrosis. Pelvic ultrasound shows no ovarian cyst or ovarian torsion. On exam, the patient was not febrile. She did not have peritonitis. There was no rash that would indicate shingles. The patient presents with right-sided abdominal and flank pain. She has had vomiting and diarrhea. She appeared clinically dehydrated. She has failed outpatient treatment as she had the same symptoms yesterday and was seen in our ER and discharged with symptomatic care. The patient received IV morphine for pain control, she received IV Phenergan for nausea, she was given IV saline. The patient feels improved but still has quite a bit of pain. I don't think she is able be discharged home. The cause for her symptoms is unclear. Certainly viral illness is a consideration. I talked with the patient and case management. The on-call hospitalist was consulted. The patient has failed outpatient treatment. Medication Reconcilliation Current Medication List: was personally reviewed by me Blood Pressure Screening Patient's blood pressure: Elevated blood pressure Blood pressure disposition: Elevated BP felt to be situational Consults Time Called: 2114 Consulting Physician: Dr. James Bradford band reamer machine operator Returned Call: [phone] I discussed the patient with Dr. James Bradford band reamer machine operator - he will evaluate the patient for further treatment. Impression Primary Impression: Right sided abdominal pain Additional Impressions: Nausea vomiting and diarrhea Failure of outpatient treatment Dehydration Scribe Attestation The scribe's documentation has been prepared under my direction and personally reviewed by me in its entirety. I confirm that the note above accurately reflects all work, treatment, procedures, and medical decision making performed by me. Departure Information Dispostion Being Evaluated By Hospitalist Referrals Tao Moran M.D. (PCP) Patient Instructions My [facility] Problem Qualifiers
[2017-08-23] MEDS ORDERED: FAMO20TA11 PO (17:55)
[2017-08-23] MEDS ORDERED: ONDA4TAB10 SL (17:55)
[2017-08-23] MEDS ORDERED: MoRPHine SULFATE 2 MG/ML CARP ONE (17:57)
[2017-08-23] MEDS ORDERED: MoRPHine SULFATE 4 MG/ML 1 ML CARP\\VIAL ONE (17:57)
[2017-08-23] MEDS: MoRPHine SULFATE 10 MG/ML CARP/VIAL IV PRN ×2 (18:10→20:55)
[2017-08-23 18:14] LABS: BASO % 0.3 %; BASO ABS # 0.03 K/uL (0-0.2); COMPLETE YES; EOS % 1.7 %; HEMATOCRIT 37.2 % (37-47); IG% 0.4 %; MEAN CELL VOLUME 81.4 fL (80-100); MEAN CORPUSCULAR HEMOGLOBIN 25.6 pg (25-34); MEAN CORPUSCULAR HGB CONC 31.5 g/dl (32-36); MEAN PLATELET VOLUME 10.2 fL (7.4-10.4); MONO % 7.6 %; PLATELET COUNT 263 K/uL (130-400); RED BLOOD COUNT 4.57 M/uL (4.2-5.4); WHITE BLOOD COUNT 11.11 K/uL (4.8-10.8)
--- NOTE | 2017-08-23 18:17 | DIAGNOSTIC IMAGING REPORT ---
SINGLE VIEW CHEST CLINICAL HISTORY: Generalized abdominal pain. FINDINGS: An AP, portable, upright chest radiograph is compared to study dated 08/22/2017 and correlated with chest CT dated 11/13/2013. The examination is degraded by portable technique, large body habitus, and patient rotation. The cardiomediastinal silhouette is unremarkable. There is minimal left basilar atelectasis. The lungs and pleural spaces are otherwise clear. No pneumothorax is seen. The bony thorax is grossly intact. IMPRESSION: No active disease in the chest. Electronically signed by: Lukas Aleman M.D. 08/23/2017 6:16 PM Dictated Date/Time: 08/23/2017 6:15 PM
[2017-08-23 18:26] LABS: PREG INTERNAL NEGATIVE QC NEG CLEAR BACKGROUND; PREG INTERNAL POSITIVE QC POS CONTROL LINE
[2017-08-23 18:32] LABS: BUN/CREATININE RATIO 10.2 (10-20); CALCIUM 9.1 mg/dl (8.5-10.1); CREATININE 0.82 mg/dl (0.60-1.20); POTASSIUM 4.2 mmol/L (3.5-5.1)
[2017-08-23 18:35] LABS: ALB/GLOB RATIO 0.8 (0.9-2)
--- NOTE | 2017-08-23 20:13 | DIAGNOSTIC IMAGING REPORT ---
ULTRASOUND OF THE PELVIS CLINICAL HISTORY: Right pelvic pain. COMPARISON STUDY: Pelvic CT dated 08/22/2017. TECHNIQUE: Real-time, grayscale, and color flow sonography of the pelvis is performed both transabdominally and endovaginally. Images are reviewed in the transverse and longitudinal planes. FINDINGS: Uterus: The uterus is surgically absent Ovaries: The ovaries are normal in size and morphology. The right ovary measures 3.4 x 1.8 x 2.2 cm and the left ovary measures 2.8 x 2.0 x 2.6 cm. Small ovarian follicles are observed. Normal Doppler waveforms are shown within both ovaries. Pelvis: There is a small volume of free fluid in the cul-de-sac. No concerning adnexal lesion is seen. IMPRESSION: 1. No acute sonographic abnormality is identified in the pelvis noting status post hysterectomy. 2. There is trace and likely physiologic free fluid in the cul-de-sac. Electronically signed by: Lukas Aleman M.D. 08/23/2017 8:12 PM Dictated Date/Time: 08/23/2017 8:10 PM
--- NOTE | 2017-08-23 20:14 | DIAGNOSTIC IMAGING REPORT ---
ULTRASOUND KIDNEYS AND BLADDER CLINICAL HISTORY: Right flank pain. COMPARISON STUDY: Abdominal CT dated 08/22/2017. TECHNIQUE: Real-time, grayscale, and color flow sonography of the kidneys and bladder is performed. Images are reviewed in the transverse and longitudinal planes. FINDINGS: Kidneys: The kidneys are normal in size and echotexture. The right kidney measures 11.2 x 5.0 x 4.9 cm and the left kidney measures 9.8 x 5.1 x 4.7 cm. There is no hydronephrosis. No shadowing renal calculi are identified. There is no sonographic evidence of contour deforming renal mass lesion. No perinephric fluid is identified. Bladder: The bladder is normal in appearance. Bilateral ureteral jets were seen. Upper abdomen: Survey images of the upper abdomen show hepatomegaly and hepatic steatosis. IMPRESSION: 1. Unremarkable sonographic assessment of the kidneys and bladder. There has been no significant change from yesterday's abdominal CT scan. 2. Hepatomegaly and hepatic steatosis. Electronically signed by: Lukas Aleman M.D. 08/23/2017 8:13 PM Dictated Date/Time: 08/23/2017 8:12 PM
[2017-08-23 20:55] LABS: MANUAL MICROSCOPIC REQUIRED? NO; REVIEW REQ? NO; URINE APPEARANCE CLEAR (CLEAR); URINE BILIRUBIN NEG (NEG); URINE COLOR YELLOW; URINE NITRITE NEG (NEG); URINE SPECIFIC GRAVITY 1.019 (1.000-1.030); UROBILINOGEN NEG (NEG); ZZUR CULT IF INDIC CLEAN CATCH NO
[2017-08-23] MEDS ORDERED: MAGNESIUM HYDROXIDE SUSP 30 ML UDC PO PRN (23:00)
[2017-08-23] MEDS ORDERED: ALUMINUM/MAGNESIUM/SIMETH (MAALOX MAX) 30 ML UDC PO PRN (23:00)
[2017-08-23] MEDS ORDERED: SUMA6KIT SC (23:04)
[2017-08-23] MEDS ORDERED: PANT40TA PO (23:04)
[2017-08-23] MEDS ORDERED: ATV/1 PO (23:04)
[2017-08-23] MEDS ORDERED: VENL150C56 PO (23:10)
[2017-08-23] MEDS ORDERED: EFFSR75 PO (23:10)
[2017-08-23] MEDS ORDERED: TRAZ50TA35 PO (23:10)
[2017-08-23] MEDS ORDERED: SUMATRIPTAN SUCCINATE 6 MG/0.5 ML VIAL SC PRN (23:15)
[2017-08-23] MEDS ORDERED: VANCOMYCIN INJ 1,000 MG in SODIUM CHLORIDE 0.9% 250ML 250 ML IV SCH (23:15)
[2017-08-23] MEDS ORDERED: IV FLUIDS COMPLETED PRN (23:45)
[2017-08-24] VITALS: O2SAT 98
[2017-08-24 00:07] VITALS: BP 133/83; PULSE 76; TEMP 36.8; O2SAT 99; Ht 180.3 cm; Wt 131.5 kg
--- NOTE | 2017-08-24 00:13 | HISTORY & PHYSICAL EXAMINATION ---
DATE OF ADMISSION: 08/23/2017 CHIEF COMPLAINT: Nausea, vomiting, abdominal pain and diarrhea. HISTORY OF PRESENT ILLNESS: This is a 32-year-old female with past medical history significant for iron deficiency anemia, GERD, depression, anxiety, migraines, comes because of severe abdominal pain, nausea, vomiting and diarrhea. Her symptoms started yesterday morning around 4:00 with nausea, vomiting, abdominal pain and came to the ER. She had a CAT scan of the abdomen and pelvis and ultrasound of the abdomen and workup was negative and she was discharged to home, but today again around 1:00, she was having severe abdominal pain and right-sided abdominal pain and had 20 episodes of watery stools, no blood in the stools and also nausea, vomiting several times and she could not eat anything and she came back to the ER and in the ER again she was found to be somewhat dry, some mild leukocytosis, but hemodynamically stable. Because of the ongoing nausea, vomiting and diarrhea, we have called for admission. Currently resting comfortably. Pain is controlled with pain medications. She says the pain was about 7/8 in severity. Denies any headaches, no blurred vision, no dizziness. No sore throat, no difficulty swallowing. No chest pain. She also gets short of breath whenever she has severe abdominal pain. No cough, no fever, no chills. She has normal bladder movements. No blood in the urine. Appetite is not good because of this ongoing symptoms. ALLERGIES: SUDAFED. PAST MEDICAL HISTORY: As mentioned above. PAST SURGICAL HISTORY: , dilatation and curettage, EGD, ligation of ovary ducts, small bowel endoscopy with biopsy. MEDICATIONS: Currently, the patient is on Ativan 1 mg p.o. q. 6 hours p.r.n., Protonix 40 mg p.o. daily, sumatriptan 0.5 mg subcutaneous as needed, bupropion XL 300 mg p.o. daily, Trileptal 300 mg in a.m. and 600 mg in p.m., Effexor 75 mg in the a.m. and 150 mg in p.m., trazodone 50 mg p.o. at bedtime. FAMILY HISTORY: Significant for, brother had hypertension. Mother had gastric bypass. Aunt has breast cancer. SOCIAL HISTORY: , No smoking history, no alcohol history or drug history. REVIEW OF SYMPTOMS: As per HPI. Rest of review of symptoms negative. PHYSICAL EXAMINATION: GENERAL: The patient is obese, not in distress. VITAL SIGNS: Temperature 37.1, pulse 83, respiratory rate 20, blood pressure 132/70, oxygen 97%. HEENT: No pallor, no icterus. Pupils equal, round, and reactive to light. NECK: No JVD, no neck masses, no carotid bruits. CARDIOVASCULAR: S1, S2 heard, regular rate and rhythm, no murmur, no gallop. RESPIRATORY SYSTEM: Clear to auscultation bilaterally. No wheezing, no crackles. ABDOMEN: Soft, bowel sounds present. Tenderness in the right upper and right lower quadrant. No guarding, no rigidity. No distention. CENTRAL NERVOUS SYSTEM: Cranial nerves II-XII grossly intact. Nonfocal. EXTREMITIES: No edema. erythema of distal part of right third finger. mild macular rash seen on right fore arm LABORATORIES: Sodium 138, potassium 4.2, chloride 108, bicarbonate 25, BUN 28, creatinine 0.8, serum glucose is 74, lactic acid 1.2, calcium 9.2, total bilirubin 0.1, AST 12, ALT 19, alkaline phosphatase 101, lipase 179, qualitative hCG negative. WBC 11.1, hemoglobin 11.7, hematocrit 37.2, platelets 263. Urinalysis negative. Chest x-ray: No acute findings. Renal ultrasound acute findings. Pelvic ultrasound, no acute findings. Pelvic transvaginal ultrasound, no acute findings. The patient has a CT scan of the abdomen and pelvis done yesterday in the ER which was also a negative study except for hepatomegaly and hepatic steatosis and she had gallbladder ultrasound also done yesterday, no gallstones seen . ASSESSMENT AND PLAN: This is a 32-year-old female who presents with nausea, vomiting, diarrhea and abdominal pain. 1. Nausea, vomiting, abdominal pain and diarrhea. Most likely viral gastroenteritis. We will get the stool cultures, stool for C. diff and we will place her n.p.o. for now and IV antiemetics, IV pain medications and observe on medical floor. If symptoms continue to worsen and not improving, we will consider GI consult. 2. Right third finger infection. The patient states she tried to pull the nail, it is somewhat erythematous and she also has some erythematous rash in the right upper extremity, possibly from pain medication, but we will place on IV vancomycin. Follow the blood cultures. When patient is able to take p.o., we will change to oral antibiotics. 3. History of depression and anxiety. Continue home medication of Effexor, bupropion and trazodone. 4 Anxiety, Ativan p.r.n. 5. Gastroesophageal reflux disease, Protonix. 6. Migrans, Imitrex p.r.n. 7. Deep vein thrombosis prophylaxis, SCDs and TEDs. DISPOSITION: Observation on medical floor. Expect to discharge home and follow with his family doctor. Level 1 full code. MTDD
[2017-08-24] MEDS: D5W AND NSS 1,000 ML IV SCH ×4 (00:26→23:59)
[2017-08-24] MEDS: HYDROmorphone INJ 0.5 MG/0.5 ML SYR IV PRN ×7 (00:29→23:47)
[2017-08-24] MEDS ORDERED: VANCOMYCIN CONSULT ACTIVE PRN (00:30)
[2017-08-24] MEDS ORDERED: VANCOMYCIN INJ 2,750 MG in SODIUM CHLORIDE 0.9% 500ML 500 ML IV SCH (00:30)
[2017-08-24] MEDS: VENLAFAXINE HCL XR 150 MG CAPXR PO SCH ×2 (00:31→21:12)
[2017-08-24] MEDS: TRAZODONE HCL 50 MG TAB PO SCH ×2 (00:31→21:12)
[2017-08-24] MEDS: OXCARBAZEPINE 150 MG TAB PO SCH ×3 (00:32→21:13)
--- NOTE | 2017-08-24 02:24 | Pharmacy Progress Note ---
Pharmacy Antibiotic Consult Date of Service: Aug 24, 2017. Pharmacy Dosing Scope * Pharmacy is consulted to initiate Vancomycin IV dosing therapy, order appropriate labs and adjust drug dose/frequency. Subjective * The patient is a 32 year old female admitted on Aug 23, 2017 at 23:02. Objective Height (Feet): 5 Height (Inches): 11.00 Weight (Kilograms): 131.500 Lab Results (24hrs): Test 08/23/17 18:00 08/23/17 20:10 White Blood Count 11.11 K/uL (4.8-10.8) Red Blood Count 4.57 M/uL (4.2-5.4) Hemoglobin 11.7 g/dL (12.0-16.0) Hematocrit 37.2 % (37-47) Mean Corpuscular Volume 81.4 fL (80-100) Mean Corpuscular Hemoglobin 25.6 pg (25-34) Mean Corpuscular Hemoglobin Concent 31.5 g/dl (32-36) Platelet Count 263 K/uL (130-400) Mean Platelet Volume 10.2 fL (7.4-10.4) Neutrophils (%) (Auto) 72.0 % Lymphocytes (%) (Auto) 18.0 % Monocytes (%) (Auto) 7.6 % Eosinophils (%) (Auto) 1.7 % Basophils (%) (Auto) 0.3 % Neutrophils # (Auto) 8.01 K/uL (1.4-6.5) Lymphocytes # (Auto) 2.00 K/uL (1.2-3.4) Monocytes # (Auto) 0.84 K/uL (0.11-0.59) Eosinophils # (Auto) 0.19 K/uL (0-0.5) Basophils # (Auto) 0.03 K/uL (0-0.2) RDW Standard Deviation 43.2 fL (36.4-46.3) RDW Coefficient of Variation 14.5 % (11.5-14.5) Immature Granulocyte % (Auto) 0.4 % Immature Granulocyte # (Auto) 0.04 K/uL (0.00-0.02) Sodium Level 138 mmol/L (136-145) Potassium Level 4.2 mmol/L (3.5-5.1) Chloride Level 108 mmol/L (98-107) Carbon Dioxide Level 25 mmol/L (21-32) Anion Gap 5.0 mmol/L (3-11) Blood Urea Nitrogen 8 mg/dl (7-18) Creatinine 0.82 mg/dl (0.60-1.20) Est Creatinine Clear Calc Drug Dose 144.7 ml/min Estimated GFR () 108.2 Estimated GFR (Non- 93.4 BUN/Creatinine Ratio 10.2 (10-20) Random Glucose 74 mg/dl (70-99) Lactic Acid Level 1.2 mmol/L (0.4-2.0) Calcium Level 9.1 mg/dl (8.5-10.1) Total Bilirubin 0.1 mg/dl (0.2-1) Aspartate Amino Transf (AST/SGOT) 12 U/L (15-37) Alanine Aminotransferase (ALT/SGPT) 19 U/L (12-78) Alkaline Phosphatase 101 U/L (45-117) Total Protein 7.7 gm/dl (6.4-8.2) Albumin 3.5 gm/dl (3.4-5.0) Globulin 4.2 gm/dl (2.5-4.0) Albumin/Globulin Ratio 0.8 (0.9-2) Lipase 179 U/L (73-393) Human Chorionic Gonadotropin, Qual NEG (NEG) Urine Color YELLOW Urine Appearance CLEAR (CLEAR) Urine pH 7.0 (4.5-7.5) Urine Specific [place] 1.019 (1.000-1.030) Urine Protein NEG (NEG) Urine Glucose (UA) NEG (NEG) Urine Ketones NEG (NEG) Urine Occult Blood NEG (NEG) Urine Nitrite NEG (NEG) Urine Bilirubin NEG (NEG) Urine Urobilinogen NEG (NEG) Urine Leukocyte Esterase NEG (NEG) Assessment & Plan * Pt being treated with IV vanco for right 3rd finger infection. * Loading dose: 2750 mg IV (~21mg/kg) X 1 dose then 2000mg IV (~15.2mg/kg) IV every 8 hours. * Goal trough level estimate: between 16-20 mcg/mL. * Trough level ordered for 2330 on 08/24/17 just prior to the 4th dose. Pharmacy will continue to follow and will adjust dose/frequency as necessary. Thank you
[2017-08-24] MEDS: LORAZEPAM 1 MG TAB PO SCH ×2 (06:00)
[2017-08-24 07:29] LABS: BASO % 0.1 %; BASO ABS # 0.01 K/uL (0-0.2); COMPLETE YES; EOS % 1.4 %; HEMATOCRIT 35.1 % (37-47); IG% 0.3 %; LYMPH ABS # 2.07 K/uL (1.2-3.4); MEAN CORPUSCULAR HEMOGLOBIN 27.4 pg (25-34); MEAN PLATELET VOLUME 9.4 fL (7.4-10.4); MONO % 6.2 %; PLATELET COUNT 202 K/uL (130-400); RED BLOOD COUNT 4.23 M/uL (4.2-5.4); WHITE BLOOD COUNT 10.37 K/uL (4.8-10.8)
[2017-08-24 07:38] VITALS: BP 130/82; PULSE 71; TEMP 36.6; O2SAT 99
[2017-08-24] MEDS: ACETAMINOPHEN 325 MG TAB PO PRN ×2 (07:42→16:42)
[2017-08-24] MEDS: VANCOMYCIN INJ 2,000 MG in SODIUM CHLORIDE 0.9% 500ML 500 ML IV SCH ×3 (07:43→23:47)
[2017-08-24] MEDS: PANTOprazole SOD 40 MG TAB PO SCH (07:44)
[2017-08-24] MEDS: VENLAFAXINE HCL XR 75 MG CAPXR PO SCH (07:44)
[2017-08-24] MEDS: BuPROPion XL 300 MG TABCR PO SCH (07:44)
[2017-08-24 08:00] LABS: BUN/CREATININE RATIO 10.8 (10-20); CALCIUM 7.8 mg/dl (8.5-10.1); CREATININE 0.86 mg/dl (0.60-1.20); MAGNESIUM 1.9 mg/dl (1.8-2.4); POTASSIUM 3.6 mmol/L (3.5-5.1)
--- NOTE | 2017-08-24 09:03 | Progress Note ---
Medicine Progress Note Date & Time of Visit: Aug 24, 2017 at 08:52. Subjective patient seen resting in bed, Nabil at the bedside not in distress, appears comfortable states abdominal pain is about the same- on the right side, pressure but stabbing at times no nausea and diarrhea since yesterday right ring finger is about the same- drained pus yesterday, redness on the forearm and arm somewhat increasing with mild pain on flexion of the hand and moderate pain with flexion of the elbow denies fever/chills no other symptoms Objective Last 8 Hrs Date Time Temp Pulse Resp B/P (MAP) Pulse Ox O2 Delivery O2 Flow Rate FiO2 08/24/17 07:38 36.6 71 18 130/82 (98) 99 Room Air Physical Exam: General- oriented x 3, not in distress, speaks in sentences with no effort Head- atraumatic Eyes-EOMI, anicteric ENT- oropharynx clear Neck- supple, no JVD, no adenopathy, no thyromegaly Lungs- clear breath sounds bilaterally, no rales/wheezes Heart- regular rhythm; no murmur, normal rate Abdomen- normal bowel sounds, non distended, soft, mild tenderness on the epigastric and RUandL quadrants, no guarding Extremities- right ring finger: (+) small abscess below the nailbed with erythema, mild tenderness, no other signs of infection on the hand, can move fully (+) 3 areas of swelling with erythema, warmth, some tenderness on the dorsal forearm and distal arm no pretibial edema, no calf tenderness Neuro- alert, oriented x 3;no gross focal deficits Skin- warm & dry Laboratory Results: Last 24 Hours Test 08/23/17 18:00 08/23/17 20:10 08/24/17 07:01 White Blood Count 11.11 K/uL 10.37 K/uL Red Blood Count 4.57 M/uL 4.23 M/uL Hemoglobin 11.7 g/dL 11.6 g/dL Hematocrit 37.2 % 35.1 % Mean Corpuscular Volume 81.4 fL 83.0 fL Mean Corpuscular Hemoglobin 25.6 pg 27.4 pg Mean Corpuscular Hemoglobin Concent 31.5 g/dl 33.0 g/dl Platelet Count 263 K/uL 202 K/uL Mean Platelet Volume 10.2 fL 9.4 fL Neutrophils (%) (Auto) 72.0 % 72.0 % Lymphocytes (%) (Auto) 18.0 % 20.0 % Monocytes (%) (Auto) 7.6 % 6.2 % Eosinophils (%) (Auto) 1.7 % 1.4 % Basophils (%) (Auto) 0.3 % 0.1 % Neutrophils # (Auto) 8.01 K/uL 7.48 K/uL Lymphocytes # (Auto) 2.00 K/uL 2.07 K/uL Monocytes # (Auto) 0.84 K/uL 0.64 K/uL Eosinophils # (Auto) 0.19 K/uL 0.14 K/uL Basophils # (Auto) 0.03 K/uL 0.01 K/uL RDW Standard Deviation 43.2 fL 43.6 fL RDW Coefficient of Variation 14.5 % 14.4 % Immature Granulocyte % (Auto) 0.4 % 0.3 % Immature Granulocyte # (Auto) 0.04 K/uL 0.03 K/uL Sodium Level 138 mmol/L 140 mmol/L Potassium Level 4.2 mmol/L 3.6 mmol/L Chloride Level 108 mmol/L 107 mmol/L Carbon Dioxide Level 25 mmol/L 28 mmol/L Anion Gap 5.0 mmol/L 5.0 mmol/L Blood Urea Nitrogen 8 mg/dl 9 mg/dl Creatinine 0.82 mg/dl 0.86 mg/dl Est Creatinine Clear Calc Drug Dose 144.7 ml/min 138.3 ml/min Estimated GFR () 108.2 102.2 Estimated GFR (Non- 93.4 88.1 BUN/Creatinine Ratio 10.2 10.8 Random Glucose 74 mg/dl 73 mg/dl Lactic Acid Level 1.2 mmol/L Calcium Level 9.1 mg/dl 7.8 mg/dl Total Bilirubin 0.1 mg/dl Aspartate Amino Transf (AST/SGOT) 12 U/L Alanine Aminotransferase (ALT/SGPT) 19 U/L Alkaline Phosphatase 101 U/L Total Protein 7.7 gm/dl Albumin 3.5 gm/dl Globulin 4.2 gm/dl Albumin/Globulin Ratio 0.8 Lipase 179 U/L Human Chorionic Gonadotropin, Qual NEG Urine Color YELLOW Urine Appearance CLEAR Urine pH 7.0 Urine Specific [place] 1.019 Urine Protein NEG Urine Glucose (UA) NEG Urine Ketones NEG Urine Occult Blood NEG Urine Nitrite NEG Urine Bilirubin NEG Urine Urobilinogen NEG Urine Leukocyte Esterase NEG Magnesium Level 1.9 mg/dl Date/Time Source Procedure Growth Status 08/23/17 23:40 Blood Blood Culture Pending Received 08/23/17 23:35 Blood Blood Culture Pending Received Assessment & Plan 32 year old female with history of GERD, Obesity, Depression/Anxiety, Migraine presenting with abdominal pain, diarrhea. RIGHT SIDED ABDOMINAL PAIN - initially associated with nausea, profuse diarrhea- both have resolved but still having right sided pain and tenderness - CT abdomen: (+) hepatosteatosis, GB unremarkable GB US: no signs of cholecystitis - possible viral gastroenteritis stool cultures pending continue IV fluids - repeat LFTs, Lipase maintain NPO will consult GI- possible HIDA scan RIGHT RING FINGER ABSCESS, POSSIBLE TENOSYNOVITIS, RIGHT ARM CELLULITIS -continue IV Vanco Ortho consulted for possible I&D HEPATOMEGALY/HEPATIC STEATOSIS - will need monitoring DEPRESSION AND ANXIETY - continue usual medications FULL CODE SCDs for DVT prophylaxis Dispo pending Current Inpatient Medications: Current Inpatient Medications Medications (Trade) Dose Ordered Sig/Christine Route Start Time Stop Time Status Last Admin Dose Admin Acetaminophen (Tylenol Tab) 650 mg Q4H PRN PO 08/23/17 23:00 09/22/17 22:59 08/24/17 07:42 650 MG Al Hydrox/Mg Hydrox/Simethicone (Maalox Max Susp) 15 ml Q4H PRN PO 08/23/17 23:00 09/22/17 22:59 Magnesium Hydroxide (Milk Of Magnesia Susp) 30 ml Q6H PRN PO 08/23/17 23:00 09/22/17 22:59 Ondansetron HCl (Zofran Inj) 4 mg Q6H PRN IV 08/23/17 23:00 09/22/17 22:59 Bupropion HCl (Wellbutrin-Xl Tab) 300 mg QAM PO 08/24/17 08:00 09/23/17 08:59 08/24/17 07:44 300 MG Oxcarbazepine (Trileptal Tab) 300 mg QAM PO 08/24/17 08:00 09/23/17 08:59 08/24/17 07:44 300 MG Oxcarbazepine (Trileptal Tab) 600 mg HS PO 08/24/17 21:00 09/23/17 20:59 08/24/17 00:32 600 MG Dextrose/Sodium Chloride 1,000 ml @ 125 mls/hr Q8H IV 08/23/17 23:59 09/22/17 23:58 08/24/17 07:43 125 MLS/HR Hydromorphone HCl (Dilaudid Inj) 0.5 mg Q3HWA PRN IV 08/23/17 23:00 09/06/17 22:59 08/24/17 03:45 0.5 MG Lorazepam (Ativan Tab) 1 mg Q6H PO 08/24/17 00:00 09/23/17 00:00 Pantoprazole Sodium (Protonix Tab) 40 mg DAILY PO 08/24/17 08:00 09/23/17 08:59 08/24/17 07:44 40 MG Sumatriptan Succinate (Imitrex Sq Inj) 6 mg UD PRN SC 08/23/17 23:15 09/22/17 23:14 Venlafaxine HCl (effeXOR EXTENDED REL CAP) 75 mg QAM PO 08/24/17 08:00 09/23/17 08:59 08/24/17 07:44 75 MG Trazodone HCl (Desyrel Tab) 50 mg HS PO 08/24/17 21:00 09/23/17 20:59 08/24/17 00:31 50 MG Venlafaxine HCl (effeXOR EXTENDED REL CAP) 150 mg HS PO 08/24/17 21:00 09/23/17 20:59 08/24/17 00:31 150 MG Miscellaneous (Iv Fluids Completed) 1 ea PRN PRN N/A 08/23/17 23:45 08/23/18 23:44 Vancomycin HCl (Consult) 1 ea UD PRN N/A 08/24/17 00:30 09/23/17 00:29 Vancomycin HCl 2000 mg/Sodium Chloride 540 ml @ 200 mls/hr Q8H IV 08/24/17 08:00 09/03/17 07:59 08/24/17 07:43 200 MLS/HR Diphenhydramine HCl (Benadryl Cap) 25 mg TID PRN PO 08/24/17 06:15 09/23/17 06:14 08/24/17 06:19 25 MG
[2017-08-24 09:34] LABS: ALKALINE PHOSPHATASE 87 U/L (45-117); ALT/SGPT 17 U/L (12-78); AST/SGOT 10 U/L (15-37)
--- NOTE | 2017-08-24 10:27 | ORTHOPEDIC CONSULTATION ---
DATE OF CONSULTATION: 08/24/2017 DATE OF CONSULTATION: 08/24/2017 HISTORY OF PRESENT ILLNESS: The patient is a 32-year-old female who comes in today because of abdominal pain. She was actually admitted last night. In addition to this; however, her right ring finger she apparently pulled a hangnail off a couple of days ago and has developed a painful hematoma in the nail fold. She subsequently has had increasing streaks of redness over the dorsum of her forearm as well as the medial epicondyle area. PHYSICAL EXAMINATION: Additional physical exam finding, the patient has negative Kanavel's signs. No tenderness to active flexion or passive extension or tenderness along the tendon sheath. ASSESSMENT: Infected hematoma nail fold left ring finger. PLAN: The patient has been on antibiotics less than 12 hours. We will observe. If symptoms do not defervesce may require surgical I&D.
[2017-08-24] MEDS ORDERED: LORAZEPAM 1 MG TAB PO PRN (12:00)
--- NOTE | 2017-08-24 12:20 | Gastrointestinal Consultation ---
Gastrointestinal Consultation Date of Consultation: Aug 24, 2017 Attending Physician: Dr. Almanza Consulting Physician: Dr. Hill Reason for Consultation: Abdominal pain History of Present Illness Patient is a 32 year old female patient of with a hx of iron deficiency anemia, GERD, Depression, anxiety and migraines presented to the ED yesterday with reports of a sudden onset of nausea, vomiting abdominal pain at 4AM the day prior. GI is consulted for right sided abdominal pain. She also had a pelvic US post hysterectomy, normal ovaries with follicles, no cysts, also with a small amt of free fluid in the pelvis, likely physiological. CBC, CMP have been normal with the exception of mild leukocytosis Monday at 12 , yesterday at 11, normal today. Stool for c-diff and culture are pending. When reviewing her symptoms, they started abruptly on Monday morning (08/22) with right sided diffuse pain, more upper than lower, also "a little bit of pain ," between the shoulder blades. Pain was accompanied by gassiness and bloating. She was seen in the ED. At that time, CT with IV contrast showed a small amt of free fluid in the pelvis, otherwise no abnormalities. Ultrasound at that time did not show stones, wall thickening or kia-cholecystitic fluid. The next day (Monday), diarrhea developed - about 20 liquid BMs. Additionally , yesterday (Monday) she vomited about 3 times. She returned to the ED yesterday (Monday) at which time she underwent a pelvic US post hysterectomy , normal ovaries with follicles, no cysts, also with a small amt of free fluid in the pelvis, likely physiological. CBC, CMP have been normal with the exception of mild leukocytosis Monday at 12, yesterday at 11, normal today. Stool for c-diff and culture are pending. Today, no vomiting and no BMs, but pain persists. She has not had any melena, hematochezia. Past Medical/Surgical History Medical Problems: (1) Dehydration Status: Acute (2) Failure of outpatient treatment Status: Acute (3) Nausea Status: Acute (4) Nausea vomiting and diarrhea Status: Acute (5) Right sided abdominal pain Status: Acute Past Medical History: 1. Iron deficiency anemia 2. GERD 3. Depression 4. Migraines 5. Anxiety Past Surgical History: 1. 2. D&C 3. TL 4. Partial hysterectomy 5. EGD and colonoscopy on 08/08/14 for abdominal pain by Dr. Singh: EGD normal. Colonoscopy with a 4mm polyp otherwise normal Path with melanosis coli, gastric bx negative for H Pylori, Sigmoid polyp hyperplastic. Duodenal bx normal. Family History Cancer Diabetes mellitus FH: heart disease Hypertension Social History Smoking Status: Never Smoker Alcohol Use: none Drug Use: none Marital Status: single Housing Status: lives with family Occupation Status: employed Allergies Coded Allergies: Adhesives (Unverified Allergy, Unknown, skin irritation with some tapes, 08/23/17) Pseudoephedrine (Verified Adverse Reaction, [facility] HR, N/V, ) Current Medications Home Meds and Scripts Medications Dose Route/Sig Max Daily Dose Days Date Category Trazodone (Trazodone HCl) 50 Mg Tab 50 Mg PO HS 08/23/17 Rx Effexor Extended Rel (Venlafaxine Hcl) 150 Mg Cap 150 Mg PO HS 08/23/17 Rx Effexor Extended Rel (Venlafaxine Hcl) 75 Mg Capcr 75 Mg PO DAILY 08/23/17 Rx Imitrex Statdose (Sumatriptan Succinate) 6 Mg/0.5 Ml Inj 0.5 Ml SC UD PRN 08/23/17 Rx Protonix (Pantoprazole Sodium) 40 Mg Tab 40 Mg PO DAILY 30 08/23/17 Rx Ativan (Lorazepam) 1 Mg Tab 1 Mg PO Q6H 08/23/17 Rx Trileptal (Oxcarbazepine) 300 Mg Tab 300 Mg PO QAM 08/22/17 Reported Trileptal (Oxcarbazepine) 300 Mg Tab 600 Mg PO HS 09/08/16 Reported Bupropion HCl Xl (Bupropion HCl) 300 Mg Tabcr 300 Mg PO QAM 11/22/14 Reported Review of Systems Constitutional: No fever, No chills, No sweats, No weight loss, No weakness Eyes: No eye pain, No redness ENT: No sore throat, No trouble swallowing, No pain on swallowing Respiratory: No cough, No wheezing, No shortness of breath, No dyspnea on exertion Cardiac: No chest pain, No edema, No palpitations Abdomen: + see HPI, + pain, + nausea, + vomiting, + diarrhea, No constipation, No GI bleeding, No dysphagia, No odynophagia Neuro: No memory loss, No weakness, No numbness/tingling, No vertigo, No balance problems Psych: No depression symptoms, No anxiety, No insomnia Heme: No abnormal bleeding/bruising, No night sweats Endo: No excessive thirst, No excessive urination Skin: No rash, No itch, No new/changing skin lesions, No jaundice Physical Exam Date Time Temp Pulse Resp B/P (MAP) Pulse Ox O2 Delivery O2 Flow Rate FiO2 08/24/17 08:00 Room Air 08/24/17 07:38 36.6 71 18 130/82 (98) 99 Room Air 08/24/17 00:07 36.8 76 20 133/83 99 Room Air 08/24/17 00:00 98 Room Air 08/23/17 23:15 77 98 08/23/17 23:00 71 123/71 99 08/23/17 22:45 91 98 08/23/17 22:30 76 123/60 98 08/23/17 22:15 78 98 08/23/17 22:10 83 97 08/23/17 22:01 132/70 08/23/17 21:55 81 20 97 08/23/17 21:40 83 98 08/23/17 21:30 117/70 08/23/17 21:25 81 99 08/23/17 21:20 82 99 08/23/17 21:05 91 100 08/23/17 21:00 121/67 08/23/17 20:50 88 92 08/23/17 20:35 77 99 08/23/17 20:30 116/65 08/23/17 20:30 82 18 116/65 100 Room Air 08/23/17 20:20 76 100 08/23/17 19:15 80 100 08/23/17 19:00 72 145/90 99 08/23/17 18:50 138/85 08/23/17 18:14 79 20 139/87 98 Room Air 08/23/17 17:27 37.1 85 18 139/84 96 Room Air General Appearance: + mild distress (with abdominal pain), + obese Eyes: normal inspection, EOMI Neck: supple, no adenopathy, thyroid normal Respiratory/Chest: chest non-tender, lungs clear, normal breath sounds, no accessory muscle use Cardiovascular: regular rate, rhythm, no JVD, no murmur Abdomen: normal bowel sounds, soft, no organomegaly, + tenderness (moderate, diffuse right upper and lower abdomen tenderness) Extremities: normal inspection, no pedal edema, normal capillary refill Neurologic/Psych: alert, normal mood/affect, oriented x 3 Skin: normal color, no jaundice, warm/dry, no rash Laboratory Results Last 24 Hours Test 08/23/17 18:00 08/23/17 20:10 08/24/17 07:01 White Blood Count 11.11 K/uL 10.37 K/uL Red Blood Count 4.57 M/uL 4.23 M/uL Hemoglobin 11.7 g/dL 11.6 g/dL Hematocrit 37.2 % 35.1 % Mean Corpuscular Volume 81.4 fL 83.0 fL Mean Corpuscular Hemoglobin 25.6 pg 27.4 pg Mean Corpuscular Hemoglobin Concent 31.5 g/dl 33.0 g/dl Platelet Count 263 K/uL 202 K/uL Mean Platelet Volume 10.2 fL 9.4 fL Neutrophils (%) (Auto) 72.0 % 72.0 % Lymphocytes (%) (Auto) 18.0 % 20.0 % Monocytes (%) (Auto) 7.6 % 6.2 % Eosinophils (%) (Auto) 1.7 % 1.4 % Basophils (%) (Auto) 0.3 % 0.1 % Neutrophils # (Auto) 8.01 K/uL 7.48 K/uL Lymphocytes # (Auto) 2.00 K/uL 2.07 K/uL Monocytes # (Auto) 0.84 K/uL 0.64 K/uL Eosinophils # (Auto) 0.19 K/uL 0.14 K/uL Basophils # (Auto) 0.03 K/uL 0.01 K/uL RDW Standard Deviation 43.2 fL 43.6 fL RDW Coefficient of Variation 14.5 % 14.4 % Immature Granulocyte % (Auto) 0.4 % 0.3 % Immature Granulocyte # (Auto) 0.04 K/uL 0.03 K/uL Sodium Level 138 mmol/L 140 mmol/L Potassium Level 4.2 mmol/L 3.6 mmol/L Chloride Level 108 mmol/L 107 mmol/L Carbon Dioxide Level 25 mmol/L 28 mmol/L Anion Gap 5.0 mmol/L 5.0 mmol/L Blood Urea Nitrogen 8 mg/dl 9 mg/dl Creatinine 0.82 mg/dl 0.86 mg/dl Est Creatinine Clear Calc Drug Dose 144.7 ml/min 138.3 ml/min Estimated GFR () 108.2 102.2 Estimated GFR (Non- 93.4 88.1 BUN/Creatinine Ratio 10.2 10.8 Random Glucose 74 mg/dl 73 mg/dl Lactic Acid Level 1.2 mmol/L Calcium Level 9.1 mg/dl 7.8 mg/dl Total Bilirubin 0.1 mg/dl 0.3 mg/dl Aspartate Amino Transf (AST/SGOT) 12 U/L 10 U/L Alanine Aminotransferase (ALT/SGPT) 19 U/L 17 U/L Alkaline Phosphatase 101 U/L 87 U/L Total Protein 7.7 gm/dl 6.3 gm/dl Albumin 3.5 gm/dl 3.0 gm/dl Globulin 4.2 gm/dl Albumin/Globulin Ratio 0.8 Lipase 179 U/L 107 U/L Human Chorionic Gonadotropin, Qual NEG Urine Color YELLOW Urine Appearance CLEAR Urine pH 7.0 Urine Specific [place] 1.019 Urine Protein NEG Urine Glucose (UA) NEG Urine Ketones NEG Urine Occult Blood NEG Urine Nitrite NEG Urine Bilirubin NEG Urine Urobilinogen NEG Urine Leukocyte Esterase NEG Magnesium Level 1.9 mg/dl Direct Bilirubin < 0.1 mg/dl Impression Patient is a 32 year old female with a 3 day illness consisting of nausea, vomiting, diarrhea and abdominal pain. Because she has undergone CT, RUQ US, pelvic US that are w/o cause of symptoms and because, other than a mildly elevated WBC that has since normalized she has had normal CBC, CMP, lipase. This illness most likely represents a viral gastroenteritis. Would expect the abdominal pain to improve over the next few days. Plan 1. Clear liquids. 2. Stool for culture, C-diff, giardia if any further diarrhea. 3. At this point, no strong indication for endoscopy. 4. Will continue to follow. I have seen , examined and agree with the plan as outlined by CARMEN Gann as above. -exam reveals soft abd -Presentation consistent with gastroenteritis -Symptomatic care and if symptoms continue, then will consider EGD in am -BID PPI orally -Bentyl prn
[2017-08-24 15:56] VITALS: BP 125/84; PULSE 66; TEMP 36.6; O2SAT 100
[2017-08-24 16:00] VITALS: O2SAT 100
[2017-08-24] MEDS: DICYCLOMINE HCL 10 MG CAP PO SCH ×2 (17:49→21:12)
[2017-08-24] MEDS ORDERED: VANCOMYCIN TROUGH SCH (23:30)
[2017-08-25] VITALS: O2SAT 98
[2017-08-25 00:14] VITALS: BP 137/84; PULSE 70; TEMP 36.9; O2SAT 100
[2017-08-25] MEDS: ONDANSETRON INJ 2 MG/ML 2 ML VIAL IV PRN ×3 (03:01→15:37)
[2017-08-25] MEDS: HYDROmorphone INJ 0.5 MG/0.5 ML SYR IV PRN ×4 (03:04→21:18)
[2017-08-25] MEDS: D5W AND NSS 1,000 ML IV SCH ×2 (06:25→18:14)
[2017-08-25 07:24] VITALS: BP 130/85; PULSE 73; TEMP 36.9; O2SAT 100
[2017-08-25 07:29] LABS: BASO % 0.4 %; BASO ABS # 0.03 K/uL (0-0.2); COMPLETE YES; EOS % 2.5 %; HEMATOCRIT 34.9 % (37-47); IG% 0.4 %; LYMPH % 21.9 %; LYMPH ABS # 1.74 K/uL (1.2-3.4); MEAN CELL VOLUME 82.1 fL (80-100); MEAN CORPUSCULAR HEMOGLOBIN 26.4 pg (25-34); MEAN CORPUSCULAR HGB CONC 32.1 g/dl (32-36); MEAN PLATELET VOLUME 9.6 fL (7.4-10.4); MONO % 7.4 %; NEUT % 67.4 %; PLATELET COUNT 173 K/uL (130-400); RED BLOOD COUNT 4.25 M/uL (4.2-5.4); WHITE BLOOD COUNT 7.95 K/uL (4.8-10.8)
[2017-08-25 07:55] LABS: BUN/CREATININE RATIO 7.2 (10-20); CALCIUM 8.1 mg/dl (8.5-10.1); CREATININE 0.86 mg/dl (0.60-1.20); MAGNESIUM 1.9 mg/dl (1.8-2.4); POTASSIUM 4.1 mmol/L (3.5-5.1)
[2017-08-25] MEDS: DICYCLOMINE HCL 10 MG CAP PO SCH ×4 (08:31→21:20)
--- NOTE | 2017-08-25 09:03 | Pharmacy Progress Note ---
Pharmacy Abx Dose Progress Nt Date of Service Aug 25, 2017. Pharmacy Dosing Scope The patient is currently receiving the following antimicrobial agents per Pharmacy consult: Vancomycin 2000 mg IV every 8 hours Objective Height (Feet): 5 Height (Inches): 11.00 Weight (Kilograms): 131.500 Vital Signs (Past 12Hrs) Vital Signs Past 12 Hours Date Time Temp Pulse Resp B/P (MAP) Pulse Ox O2 Delivery O2 Flow Rate FiO2 08/25/17 07:24 36.9 73 16 130/85 (100) 100 Room Air 08/25/17 00:14 36.9 70 16 137/84 (101) 100 Room Air 08/25/17 00:00 98 Room Air Lab Results (24Hrs) Laboratory Tests (24 Hours) Test 08/25/17 07:11 White Blood Count 7.95 K/uL (4.8-10.8) Red Blood Count 4.25 M/uL (4.2-5.4) Hemoglobin 11.2 g/dL (12.0-16.0) L Hematocrit 34.9 % (37-47) L Mean Corpuscular Volume 82.1 fL (80-100) Mean Corpuscular Hemoglobin 26.4 pg (25-34) Mean Corpuscular Hemoglobin Concent 32.1 g/dl (32-36) Platelet Count 173 K/uL (130-400) Mean Platelet Volume 9.6 fL (7.4-10.4) Neutrophils (%) (Auto) 67.4 % Lymphocytes (%) (Auto) 21.9 % Monocytes (%) (Auto) 7.4 % Eosinophils (%) (Auto) 2.5 % Basophils (%) (Auto) 0.4 % Neutrophils # (Auto) 5.36 K/uL (1.4-6.5) Lymphocytes # (Auto) 1.74 K/uL (1.2-3.4) Monocytes # (Auto) 0.59 K/uL (0.11-0.59) Eosinophils # (Auto) 0.20 K/uL (0-0.5) Basophils # (Auto) 0.03 K/uL (0-0.2) Item Value Date Time Vancomycin Level Trough 26.5 mcg/ml 08/24/17 4593 Micro Results Date/Time Source Procedure Growth Status 08/23/17 23:40 Blood Blood Culture - Preliminary NO GROWTH TO DATE. Resulted 08/23/17 23:35 Blood Blood Culture - Preliminary NO GROWTH TO DATE. Resulted 08/24/17 14:00 Urine , Clean Catch Urine Culture Pending Received Risk Factors for Resistance * Pt has no risk factors for resistance Assessment & Plan Assessment 32 year old female receiving Vancomycin for treatment of purulent finger infection with small abscess. Day # 2 of antimicrobial therapy Plan Vancomycin IV * Trough level of 26.5 mcg/mL is supratherapeutic. * Change to 1500 mg IV every 8 hours (11.5mg/kg) * This morning's dose was held to allow drug level to fall to estimated trough of 18 mcg/mL * Goal trough level for purulent skin infection : 15 to 20 mcg/mL * Trough level ordered for: 08/26/17 @ 0530 * Less than traditional dose selected due to likelihood of drug accumulation in obese patient. * PK parameters based on today's trough: Half life= 6.2 hrs Ke=0.112 Vd=0.6L/ kg Pharmacy will continue to follow and will adjust dose/frequency as necessary. Thank you.
--- NOTE | 2017-08-25 09:08 | Gastroenterology Progress Note ---
Progress Note Date of Service: Aug 25, 2017 Subjective Pt evaluation today including: conversation w/ patient, physical exam, chart review, lab review pt seen and evaluated, chart reviewed. no more episodes of vomiting, diarrhea. still with abdominal discomofrt and mild nausea. Tolerated clears this AM without vomiting. no fever, chills, CP, SOB Review of Systems Constitutional: No fever, No chills Respiratory: No cough, No shortness of breath Cardiac: No chest pain Abdomen: + pain, + nausea, No vomiting, No diarrhea, No constipation, No GI bleeding Medications Current Inpatient Medications Medications (Trade) Dose Ordered Sig/Christine Route Start Time Stop Time Status Last Admin Dose Admin Acetaminophen (Tylenol Tab) 650 mg Q4H PRN PO 08/23/17 23:00 09/22/17 22:59 08/24/17 16:42 650 MG Al Hydrox/Mg Hydrox/Simethicone (Maalox Max Susp) 15 ml Q4H PRN PO 08/23/17 23:00 09/22/17 22:59 Magnesium Hydroxide (Milk Of Magnesia Susp) 30 ml Q6H PRN PO 08/23/17 23:00 09/22/17 22:59 Ondansetron HCl (Zofran Inj) 4 mg Q6H PRN IV 08/23/17 23:00 09/22/17 22:59 08/25/17 08:31 4 MG Bupropion HCl (Wellbutrin-Xl Tab) 300 mg QAM PO 08/24/17 08:00 09/23/17 08:59 08/24/17 07:44 300 MG Oxcarbazepine (Trileptal Tab) 300 mg QAM PO 08/24/17 08:00 09/23/17 08:59 08/24/17 07:44 300 MG Oxcarbazepine (Trileptal Tab) 600 mg HS PO 08/24/17 21:00 09/23/17 20:59 08/24/17 21:13 600 MG Dextrose/Sodium Chloride 1,000 ml @ 125 mls/hr Q8H IV 08/23/17 23:59 09/22/17 23:58 08/25/17 06:25 125 MLS/HR Hydromorphone HCl (Dilaudid Inj) 0.5 mg Q3HWA PRN IV 08/23/17 23:00 09/06/17 22:59 08/25/17 08:23 0.5 MG Pantoprazole Sodium (Protonix Tab) 40 mg DAILY PO 08/24/17 08:00 09/23/17 08:59 08/24/17 07:44 40 MG Sumatriptan Succinate (Imitrex Sq Inj) 6 mg UD PRN SC 08/23/17 23:15 09/22/17 23:14 Venlafaxine HCl (effeXOR EXTENDED REL CAP) 75 mg QAM PO 08/24/17 08:00 09/23/17 08:59 08/24/17 07:44 75 MG Trazodone HCl (Desyrel Tab) 50 mg HS PO 08/24/17 21:00 09/23/17 20:59 08/24/17 21:12 50 MG Venlafaxine HCl (effeXOR EXTENDED REL CAP) 150 mg HS PO 08/24/17 21:00 09/23/17 20:59 08/24/17 21:12 150 MG Miscellaneous (Iv Fluids Completed) 1 ea PRN PRN N/A 08/23/17 23:45 08/23/18 23:44 Vancomycin HCl (Consult) 1 ea UD PRN N/A 08/24/17 00:30 09/23/17 00:29 Diphenhydramine HCl (Benadryl Cap) 25 mg TID PRN PO 08/24/17 06:15 09/23/17 06:14 08/24/17 15:35 25 MG Lorazepam (Ativan Tab) 1 mg Q6H PRN PO 08/24/17 12:00 09/23/17 00:00 Dicyclomine HCl (Bentyl Cap) 10 mg QID PO 08/24/17 17:00 09/23/17 16:59 08/25/17 08:31 10 MG Vancomycin HCl 1500 mg/Sodium Chloride 530 ml @ 200 mls/hr Q8H IV 08/25/17 14:00 09/03/17 13:59 Objective Vital Signs Date Time Temp Pulse Resp B/P (MAP) Pulse Ox O2 Delivery O2 Flow Rate FiO2 08/25/17 07:24 36.9 73 16 130/85 (100) 100 Room Air 08/25/17 00:14 36.9 70 16 137/84 (101) 100 Room Air 08/25/17 00:00 98 Room Air 08/24/17 16:00 100 Room Air 08/24/17 15:56 36.6 66 18 125/84 (98) 100 Room Air Physical Exam General Appearance: no apparent distress Eyes: PERRL ENT: hearing grossly normal Neck: supple Respiratory/Chest: lungs clear, normal breath sounds Cardiovascular: regular rate, rhythm Abdomen: soft, no organomegaly, + tenderness Neurologic/Psych: alert, normal mood/affect, oriented x 3 Skin: normal color Laboratory Results Last 24 Hours Test 08/24/17 23:33 08/25/17 07:11 Vancomycin Level Trough 26.5 mcg/ml White Blood Count 7.95 K/uL Red Blood Count 4.25 M/uL Hemoglobin 11.2 g/dL Hematocrit 34.9 % Mean Corpuscular Volume 82.1 fL Mean Corpuscular Hemoglobin 26.4 pg Mean Corpuscular Hemoglobin Concent 32.1 g/dl Platelet Count 173 K/uL Mean Platelet Volume 9.6 fL Neutrophils (%) (Auto) 67.4 % Lymphocytes (%) (Auto) 21.9 % Monocytes (%) (Auto) 7.4 % Eosinophils (%) (Auto) 2.5 % Basophils (%) (Auto) 0.4 % Neutrophils # (Auto) 5.36 K/uL Lymphocytes # (Auto) 1.74 K/uL Monocytes # (Auto) 0.59 K/uL Eosinophils # (Auto) 0.20 K/uL Basophils # (Auto) 0.03 K/uL RDW Standard Deviation 42.8 fL RDW Coefficient of Variation 14.2 % Immature Granulocyte % (Auto) 0.4 % Immature Granulocyte # (Auto) 0.03 K/uL Sodium Level 142 mmol/L Potassium Level 4.1 mmol/L Chloride Level 109 mmol/L Carbon Dioxide Level 28 mmol/L Anion Gap 5.0 mmol/L Blood Urea Nitrogen 6 mg/dl Creatinine 0.86 mg/dl Est Creatinine Clear Calc Drug Dose 138.3 ml/min Estimated GFR () 102.2 Estimated GFR (Non- 88.1 BUN/Creatinine Ratio 7.2 Random Glucose 91 mg/dl Calcium Level 8.1 mg/dl Magnesium Level 1.9 mg/dl Assessment and Plan Patient is a 32 year old female with a 3 day illness consisting of nausea, vomiting, diarrhea and abdominal pain. Because she has undergone CT, RUQ US, pelvic US that are w/o cause of symptoms and because, other than a mildly elevated WBC that has since normalized she has had normal CBC, CMP, lipase. This illness most likely represents a viral gastroenteritis. Would expect the abdominal pain to improve over the next few days. She tolerated clear liquids this AM. No more episodes of emesis or diarrhea. Will obtain HIDA scan, if abnormal consider outpatient follow up with general surgery - HIDA scan - Clear liquids, advance as tolerated - Stool for culture, C-diff, giardia if any further diarrhea. Coverage over the weekend by Dr. Melendez, please contact with any questions or concerns I have seen , examined and agree with the plan as outlined by Ms. Vanessa MORALES as above. -exam reveals soft abd -Planned on EGD, but had diet today -HIDA -EGD next week inpt vs outpatient
--- NOTE | 2017-08-25 09:46 | Progress Note ---
Medicine Progress Note Date & Time of Visit: Aug 25, 2017 at 09:41. Subjective seen resting in bed, comfortable, not in distress still has right sided pain and nausea but better, tolerating clears no BMs yet right ring finger and arm feels better, can move hand and elbow better no other symptoms Objective Last 8 Hrs Date Time Temp Pulse Resp B/P (MAP) Pulse Ox O2 Delivery O2 Flow Rate FiO2 08/25/17 07:24 36.9 73 16 130/85 (100) 100 Room Air Physical Exam: General- oriented x 3, not in distress, speaks in sentences with no effort Eyes- anicteric ENT- oropharynx clear Neck- supple, no JVD Lungs- clear breath sounds bilaterally, no rales/wheezes Heart- regular rhythm; no murmur, normal rate Abdomen- normal bowel sounds, non distended, soft, mild tenderness on the epigastric and R upper and Lower quadrants, no guarding Extremities- right ring finger: (+) small abscess below the nailbed with erythema- receding, no tenderness, no other signs of infection on the hand, can move fully (+) 3 areas of swelling with erythema, warmth, some tenderness on the dorsal forearm and distal arm: improved now- no raised areas, less erythema, warmth and tenderness no pretibial edema, no calf tenderness Neuro- alert, oriented x 3;no gross focal deficits Skin- warm & dry Laboratory Results: Last 24 Hours Test 08/24/17 23:33 08/25/17 07:11 Vancomycin Level Trough 26.5 mcg/ml White Blood Count 7.95 K/uL Red Blood Count 4.25 M/uL Hemoglobin 11.2 g/dL Hematocrit 34.9 % Mean Corpuscular Volume 82.1 fL Mean Corpuscular Hemoglobin 26.4 pg Mean Corpuscular Hemoglobin Concent 32.1 g/dl Platelet Count 173 K/uL Mean Platelet Volume 9.6 fL Neutrophils (%) (Auto) 67.4 % Lymphocytes (%) (Auto) 21.9 % Monocytes (%) (Auto) 7.4 % Eosinophils (%) (Auto) 2.5 % Basophils (%) (Auto) 0.4 % Neutrophils # (Auto) 5.36 K/uL Lymphocytes # (Auto) 1.74 K/uL Monocytes # (Auto) 0.59 K/uL Eosinophils # (Auto) 0.20 K/uL Basophils # (Auto) 0.03 K/uL RDW Standard Deviation 42.8 fL RDW Coefficient of Variation 14.2 % Immature Granulocyte % (Auto) 0.4 % Immature Granulocyte # (Auto) 0.03 K/uL Sodium Level 142 mmol/L Potassium Level 4.1 mmol/L Chloride Level 109 mmol/L Carbon Dioxide Level 28 mmol/L Anion Gap 5.0 mmol/L Blood Urea Nitrogen 6 mg/dl Creatinine 0.86 mg/dl Est Creatinine Clear Calc Drug Dose 138.3 ml/min Estimated GFR () 102.2 Estimated GFR (Non- 88.1 BUN/Creatinine Ratio 7.2 Random Glucose 91 mg/dl Calcium Level 8.1 mg/dl Magnesium Level 1.9 mg/dl Date/Time Source Procedure Growth Status 08/24/17 14:00 Urine , Clean Catch Urine Culture Pending Received Assessment & Plan 32 year old female with history of GERD, Obesity, Depression/Anxiety, Migraine presenting with abdominal pain, diarrhea. RIGHT SIDED ABDOMINAL PAIN - initially associated with nausea, profuse diarrhea- both have resolved but still having right sided pain and tenderness - CT abdomen: (+) hepatosteatosis, GB unremarkable GB US: no signs of cholecystitis Pelvic US: unrevealing - possible viral gastroenteritis no diarrhea but still having some pain repeat LFTs, Lipase: normal stool cultures pending on Bentyl QID, Protonix continue IV fluids continue clears if with no improvement over the weekend, may need EGD appreciate GI consult RIGHT RING FINGER ABSCESS, RIGHT ARM CELLULITIS - improving -continue IV Vanco Day 2 Ortho consulted for possible I&D, appreciate the input HEPATOMEGALY/HEPATIC STEATOSIS - will need monitoring DEPRESSION AND ANXIETY - continue usual medications FULL CODE SCDs for DVT prophylaxis Dispo pending anticipate d/c home when medically stable Current Inpatient Medications: Current Inpatient Medications Medications (Trade) Dose Ordered Sig/Christine Route Start Time Stop Time Status Last Admin Dose Admin Acetaminophen (Tylenol Tab) 650 mg Q4H PRN PO 08/23/17 23:00 09/22/17 22:59 08/24/17 16:42 650 MG Al Hydrox/Mg Hydrox/Simethicone (Maalox Max Susp) 15 ml Q4H PRN PO 08/23/17 23:00 09/22/17 22:59 Magnesium Hydroxide (Milk Of Magnesia Susp) 30 ml Q6H PRN PO 08/23/17 23:00 09/22/17 22:59 Ondansetron HCl (Zofran Inj) 4 mg Q6H PRN IV 08/23/17 23:00 09/22/17 22:59 08/25/17 08:31 4 MG Bupropion HCl (Wellbutrin-Xl Tab) 300 mg QAM PO 08/24/17 08:00 09/23/17 08:59 08/24/17 07:44 300 MG Oxcarbazepine (Trileptal Tab) 300 mg QAM PO 08/24/17 08:00 09/23/17 08:59 08/24/17 07:44 300 MG Oxcarbazepine (Trileptal Tab) 600 mg HS PO 08/24/17 21:00 09/23/17 20:59 08/24/17 21:13 600 MG Dextrose/Sodium Chloride 1,000 ml @ 125 mls/hr Q8H IV 08/23/17 23:59 09/22/17 23:58 08/25/17 06:25 125 MLS/HR Hydromorphone HCl (Dilaudid Inj) 0.5 mg Q3HWA PRN IV 08/23/17 23:00 09/06/17 22:59 08/25/17 08:23 0.5 MG Pantoprazole Sodium (Protonix Tab) 40 mg DAILY PO 08/24/17 08:00 09/23/17 08:59 08/24/17 07:44 40 MG Sumatriptan Succinate (Imitrex Sq Inj) 6 mg UD PRN SC 08/23/17 23:15 09/22/17 23:14 Venlafaxine HCl (effeXOR EXTENDED REL CAP) 75 mg QAM PO 08/24/17 08:00 09/23/17 08:59 08/24/17 07:44 75 MG Trazodone HCl (Desyrel Tab) 50 mg HS PO 08/24/17 21:00 09/23/17 20:59 08/24/17 21:12 50 MG Venlafaxine HCl (effeXOR EXTENDED REL CAP) 150 mg HS PO 08/24/17 21:00 09/23/17 20:59 08/24/17 21:12 150 MG Miscellaneous (Iv Fluids Completed) 1 ea PRN PRN N/A 08/23/17 23:45 08/23/18 23:44 Vancomycin HCl (Consult) 1 ea UD PRN N/A 08/24/17 00:30 09/23/17 00:29 Diphenhydramine HCl (Benadryl Cap) 25 mg TID PRN PO 08/24/17 06:15 09/23/17 06:14 08/24/17 15:35 25 MG Lorazepam (Ativan Tab) 1 mg Q6H PRN PO 08/24/17 12:00 09/23/17 00:00 Dicyclomine HCl (Bentyl Cap) 10 mg QID PO 08/24/17 17:00 09/23/17 16:59 08/25/17 08:31 10 MG Vancomycin HCl 1500 mg/Sodium Chloride 530 ml @ 200 mls/hr Q8H IV 08/25/17 14:00 09/03/17 13:59
[2017-08-25] MEDS: VANCOMYCIN INJ 1,500 MG in SODIUM CHLORIDE 0.9% 500ML 500 ML IV SCH ×2 (13:34→21:19)
[2017-08-25] MEDS ORDERED: SINCALIDE INJ 2.6 MCG in SODIUM CHLORIDE 0.9% 100ML 100 ML IV ONE (14:30)
[2017-08-25] MEDS: ACETAMINOPHEN 325 MG TAB PO PRN ×2 (15:37→21:19)
[2017-08-25 15:52] VITALS: BP 128/85; PULSE 61; TEMP 36.7; O2SAT 98
--- NOTE | 2017-08-25 15:58 | DIAGNOSTIC IMAGING REPORT ---
NUCLEAR MEDICINE HEPATOBILIARY SCAN CLINICAL HISTORY: Right-sided abdominal pain, nausea, vomiting and diarrhea. COMPARISON: Hepatobiliary scan January 14, 2011 and right upper quadrant ultrasound and CT of the abdomen and pelvis August 22, 2017. TECHNIQUE: 5.1 mCi of technetium 99m Choletec IV was injected at 2:40 PM on August 25, 2017. Immediately following injection, imaging of the abdomen was carried out for 60 minutes in the anterior projection. Patient deferred further imaging. Therefore, no sincalide was administered and a gallbladder ejection fraction could not be estimated. FINDINGS: Hepatic uptake of radiotracer is prompt and homogeneous. Activity is identified within the common bile duct and the gallbladder at 5 minutes. Small bowel activity is noted at 15 minutes. IMPRESSION: No evidence of acute cholecystitis. Electronically signed by: John Morelos M.D. 08/25/2017 3:56 PM Dictated Date/Time: 08/25/2017 3:55 PM
[2017-08-25 16:15] VITALS: O2SAT 98
--- NOTE | 2017-08-25 17:09 | Progress Note ---
Orthopedic SOAP Note Subjective Date of Service: Aug 25, 2017. Reports: feeling well Additional Notes: feeling better Problem List Medical Problems: (1) Dehydration Status: Acute (2) Failure of outpatient treatment Status: Acute (3) Nausea Status: Acute (4) Nausea vomiting and diarrhea Status: Acute (5) Right sided abdominal pain Status: Acute Objective erythema receding lymphangitis almost resolved pustule of eponychial fold finger Date Time Temp Pulse Resp B/P (MAP) Pulse Ox O2 Delivery O2 Flow Rate FiO2 08/25/17 15:52 36.7 61 18 128/85 (99) 98 Room Air 08/25/17 08:30 Room Air 08/25/17 07:24 36.9 73 16 130/85 (100) 100 Room Air 08/25/17 00:14 36.9 70 16 137/84 (101) 100 Room Air 08/25/17 00:00 98 Room Air Laboratory Results 24 Hours: Test 08/25/17 07:11 White Blood Count 7.95 K/uL Red Blood Count 4.25 M/uL Hemoglobin 11.2 g/dL Hematocrit 34.9 % Mean Corpuscular Volume 82.1 fL Mean Corpuscular Hemoglobin 26.4 pg Mean Corpuscular Hemoglobin Concent 32.1 g/dl Platelet Count 173 K/uL Mean Platelet Volume 9.6 fL Neutrophils (%) (Auto) 67.4 % Lymphocytes (%) (Auto) 21.9 % Monocytes (%) (Auto) 7.4 % Eosinophils (%) (Auto) 2.5 % Basophils (%) (Auto) 0.4 % Neutrophils # (Auto) 5.36 K/uL Lymphocytes # (Auto) 1.74 K/uL Monocytes # (Auto) 0.59 K/uL Eosinophils # (Auto) 0.20 K/uL Basophils # (Auto) 0.03 K/uL Assessment finger infection and lymphangitis improving Plan I debrided pustule nd superficial skin no deep pus expressed cleansed with hydrogen peroxide and saline and bandage applied,doubt any surgery will be needed at this point
[2017-08-25] MEDS: OXCARBAZEPINE 150 MG TAB PO SCH ×2 (18:09→21:20)
[2017-08-25] MEDS: PANTOprazole SOD 40 MG TAB PO SCH (18:11)
[2017-08-25] MEDS: BuPROPion XL 300 MG TABCR PO SCH (18:11)
[2017-08-25] MEDS: VENLAFAXINE HCL XR 75 MG CAPXR PO SCH (18:12)
[2017-08-25] MEDS: VENLAFAXINE HCL XR 150 MG CAPXR PO SCH (21:19)
[2017-08-25] MEDS: TRAZODONE HCL 50 MG TAB PO SCH (21:19)
[2017-08-25 23:44] VITALS: BP 109/59; PULSE 70; TEMP 36.8; O2SAT 98
[2017-08-26] MEDS: D5W AND NSS 1,000 ML IV SCH ×2 (05:13→08:00)
[2017-08-26] MEDS ORDERED: VANCOMYCIN TROUGH SCH (05:30)
[2017-08-26 05:54] LABS: BASO % 0.4 %; BASO ABS # 0.03 K/uL (0-0.2); COMPLETE YES; EOS % 2.5 %; HEMATOCRIT 35.4 % (37-47); IG% 0.3 %; LYMPH % 24.5 %; LYMPH ABS # 1.93 K/uL (1.2-3.4); MEAN CELL VOLUME 81.4 fL (80-100); MEAN CORPUSCULAR HEMOGLOBIN 26.4 pg (25-34); MEAN CORPUSCULAR HGB CONC 32.5 g/dl (32-36); MEAN PLATELET VOLUME 9.4 fL (7.4-10.4); MONO % 9.3 %; PLATELET COUNT 204 K/uL (130-400); RED BLOOD COUNT 4.35 M/uL (4.2-5.4); WHITE BLOOD COUNT 7.88 K/uL (4.8-10.8)
[2017-08-26] MEDS: HYDROmorphone INJ 0.5 MG/0.5 ML SYR IV PRN ×2 (05:58→22:05)
[2017-08-26] MEDS: VANCOMYCIN INJ 1,500 MG in SODIUM CHLORIDE 0.9% 500ML 500 ML IV SCH ×2 (06:11→13:57)
[2017-08-26 06:27] LABS: BLOOD UREA NITROGEN 5 mg/dl (7-18); BUN/CREATININE RATIO 5.4 (10-20); CALCIUM 7.9 mg/dl (8.5-10.1); CARBON DIOXIDE 29 mmol/L (21-32); CHLORIDE 110 mmol/L (98-107); CREATININE 0.87 mg/dl (0.60-1.20); GLUCOSE 112 mg/dl (70-99); MAGNESIUM 1.9 mg/dl (1.8-2.4); POTASSIUM 3.7 mmol/L (3.5-5.1); SODIUM 143 mmol/L (136-145)
[2017-08-26 07:20] VITALS: BP 119/74; PULSE 76; TEMP 36.6; O2SAT 98
[2017-08-26] MEDS: DICYCLOMINE HCL 10 MG CAP PO SCH ×4 (08:00→19:58)
[2017-08-26] MEDS: PANTOprazole SOD 40 MG TAB PO SCH (08:53)
[2017-08-26] MEDS: VENLAFAXINE HCL XR 75 MG CAPXR PO SCH (08:53)
[2017-08-26] MEDS: OXCARBAZEPINE 150 MG TAB PO SCH ×2 (08:53→22:01)
[2017-08-26] MEDS: BuPROPion XL 300 MG TABCR PO SCH (08:53)
--- NOTE | 2017-08-26 09:31 | Orthopedic Progress Note ---
Orthopedic Progress Note Date of Service Aug 26, 2017. Subjective Reports: feeling well, pain controlled w PO medications, Denies: complaints, chest pain, SOB, nausea / vomiting, light headedness Objective N/V intact, capillary refill less than 2 sec., dressing C/D/I, A&O x3 Right ring finger distal phalanx with mild erythema, improved. No drainage/ pus noted. Right arm continues to improve. Date Time Temp Pulse Resp B/P (MAP) Pulse Ox O2 Delivery O2 Flow Rate FiO2 08/26/17 07:20 36.6 76 18 119/74 (89) 98 08/26/17 00:00 Room Air 08/25/17 23:44 36.8 70 18 109/59 (76) 98 Room Air 08/25/17 16:15 98 Room Air 08/25/17 15:52 36.7 61 18 128/85 (99) 98 Room Air Laboratory Results 24 Hours: Test 08/26/17 05:41 White Blood Count 7.88 K/uL Red Blood Count 4.35 M/uL Hemoglobin 11.5 g/dL Hematocrit 35.4 % Mean Corpuscular Volume 81.4 fL Mean Corpuscular Hemoglobin 26.4 pg Mean Corpuscular Hemoglobin Concent 32.5 g/dl Platelet Count 204 K/uL Mean Platelet Volume 9.4 fL Neutrophils (%) (Auto) 63.0 % Lymphocytes (%) (Auto) 24.5 % Monocytes (%) (Auto) 9.3 % Eosinophils (%) (Auto) 2.5 % Basophils (%) (Auto) 0.4 % Neutrophils # (Auto) 4.97 K/uL Lymphocytes # (Auto) 1.93 K/uL Monocytes # (Auto) 0.73 K/uL Eosinophils # (Auto) 0.20 K/uL Basophils # (Auto) 0.03 K/uL Assessment & Plan Assessment: Right ring finger infection and lymphangitis improving s/p bedside debridement and on IV antibx. Plan: Bandage changed today, no surgery will be needed at this point. Continue wound care and IV antibx per primary service.
--- NOTE | 2017-08-26 12:44 | Progress Note ---
Medicine Progress Note Date & Time of Visit: Aug 26, 2017 at 12:39. Subjective patient seen resting in bed, comfortable states she feels improved today right sided abdominal pain continues to improve as well as nausea would like diet to be advanced no right finger/hand/arm pain, able to move hand and elbow more no other symptoms Objective Last 8 Hrs Date Time Temp Pulse Resp B/P (MAP) Pulse Ox O2 Delivery O2 Flow Rate FiO2 08/26/17 08:00 Room Air 08/26/17 07:20 36.6 76 18 119/74 (89) 98 Physical Exam: General- oriented x 3, not in distress, speaks in sentences with no effort Neck- no JVD Lungs- clear breath sounds bilaterally, no rales/wheezes Heart- regular rhythm; no murmur, normal rate Abdomen- normal BS, non distended, soft, no guarding, mild tenderness on the epigastric and R upper and Lower quadrants, no guarding Extremities- right ring finger: dressing in place; no other signs of infection on the hand, can move fully (+) 3 areas of swelling with erythema, warmth, some tenderness on the dorsal forearm and distal arm: resolved now, only mild erythema no pretibial edema, no calf tenderness Neuro- alert, oriented x 3;no gross focal deficits Skin- warm & dry Laboratory Results: Last 24 Hours Test 08/26/17 05:41 White Blood Count 7.88 K/uL Red Blood Count 4.35 M/uL Hemoglobin 11.5 g/dL Hematocrit 35.4 % Mean Corpuscular Volume 81.4 fL Mean Corpuscular Hemoglobin 26.4 pg Mean Corpuscular Hemoglobin Concent 32.5 g/dl Platelet Count 204 K/uL Mean Platelet Volume 9.4 fL Neutrophils (%) (Auto) 63.0 % Lymphocytes (%) (Auto) 24.5 % Monocytes (%) (Auto) 9.3 % Eosinophils (%) (Auto) 2.5 % Basophils (%) (Auto) 0.4 % Neutrophils # (Auto) 4.97 K/uL Lymphocytes # (Auto) 1.93 K/uL Monocytes # (Auto) 0.73 K/uL Eosinophils # (Auto) 0.20 K/uL Basophils # (Auto) 0.03 K/uL RDW Standard Deviation 41.6 fL RDW Coefficient of Variation 13.9 % Immature Granulocyte % (Auto) 0.3 % Immature Granulocyte # (Auto) 0.02 K/uL Sodium Level 143 mmol/L Potassium Level 3.7 mmol/L Chloride Level 110 mmol/L Carbon Dioxide Level 29 mmol/L Anion Gap 4.0 mmol/L Blood Urea Nitrogen 5 mg/dl Creatinine 0.87 mg/dl Est Creatinine Clear Calc Drug Dose 136.7 ml/min Estimated GFR () 100.7 Estimated GFR (Non- 86.9 BUN/Creatinine Ratio 5.4 Random Glucose 112 mg/dl Calcium Level 7.9 mg/dl Magnesium Level 1.9 mg/dl Vancomycin Level Trough 18.8 mcg/ml Assessment & Plan 32 year old female with history of GERD, Obesity, Depression/Anxiety, Migraine presenting with abdominal pain, diarrhea. RIGHT SIDED ABDOMINAL PAIN - initially associated with nausea, profuse diarrhea- both have resolved but still having right sided pain and tenderness - CT abdomen: (+) hepatosteatosis, GB unremarkable GB US: no signs of cholecystitis Pelvic US: unrevealing HIDA scan: negative for cholecystitis - possible viral gastroenteritis no diarrhea , pain improving repeat LFTs, Lipase: normal stool cultures pending on Bentyl QID, Protonix continue IV fluids advance diet to mechanical soft, low fiber appreciate GI consult RIGHT RING FINGER ABSCESS, RIGHT ARM CELLULITIS - improving -continue IV Vanco Day 3 Ortho consulted -- no plans for surgery at this time, appreciate the input HEPATOMEGALY/HEPATIC STEATOSIS - will need monitoring DEPRESSION AND ANXIETY - continue usual medications FULL CODE SCDs for DVT prophylaxis encourage to ambulate Dispo pending anticipate d/c home when medically stable discussed case with patient and her Nabil explained the patient's medical progress including, results of work up re: abdominal pain in details answered all questions patient's expressed concern re: the source of the patient's abdominal pain discussed case , including limited HIDA scan with Dr. Melendez, recommend to repeat LFTs, Lipase, Amylase and consult Gen Surg spoke again with the patient and her re: above plan and the are understanding and comfortable with the plan of care Alexandro Almanza MD Current Inpatient Medications: Current Inpatient Medications Medications (Trade) Dose Ordered Sig/Christine Route Start Time Stop Time Status Last Admin Dose Admin Acetaminophen (Tylenol Tab) 650 mg Q4H PRN PO 08/23/17 23:00 09/22/17 22:59 08/25/17 21:19 650 MG Al Hydrox/Mg Hydrox/Simethicone (Maalox Max Susp) 15 ml Q4H PRN PO 08/23/17 23:00 09/22/17 22:59 Magnesium Hydroxide (Milk Of Magnesia Susp) 30 ml Q6H PRN PO 08/23/17 23:00 09/22/17 22:59 Ondansetron HCl (Zofran Inj) 4 mg Q6H PRN IV 08/23/17 23:00 09/22/17 22:59 08/25/17 15:37 4 MG Bupropion HCl (Wellbutrin-Xl Tab) 300 mg QAM PO 08/24/17 08:00 09/23/17 08:59 08/26/17 08:53 300 MG Oxcarbazepine (Trileptal Tab) 300 mg QAM PO 08/24/17 08:00 09/23/17 08:59 08/26/17 08:53 300 MG Oxcarbazepine (Trileptal Tab) 600 mg HS PO 08/24/17 21:00 09/23/17 20:59 08/25/17 21:20 600 MG Dextrose/Sodium Chloride 1,000 ml @ 125 mls/hr Q8H IV 08/23/17 23:59 09/22/17 23:58 08/26/17 08:00 125 MLS/HR Hydromorphone HCl (Dilaudid Inj) 0.5 mg Q3HWA PRN IV 08/23/17 23:00 09/06/17 22:59 08/26/17 05:58 0.5 MG Pantoprazole Sodium (Protonix Tab) 40 mg DAILY PO 08/24/17 08:00 09/23/17 08:59 08/26/17 08:53 40 MG Sumatriptan Succinate (Imitrex Sq Inj) 6 mg UD PRN SC 08/23/17 23:15 09/22/17 23:14 Venlafaxine HCl (effeXOR EXTENDED REL CAP) 75 mg QAM PO 08/24/17 08:00 09/23/17 08:59 08/26/17 08:53 75 MG Trazodone HCl (Desyrel Tab) 50 mg HS PO 08/24/17 21:00 09/23/17 20:59 08/25/17 21:19 50 MG Venlafaxine HCl (effeXOR EXTENDED REL CAP) 150 mg HS PO 08/24/17 21:00 09/23/17 20:59 08/25/17 21:19 150 MG Miscellaneous (Iv Fluids Completed) 1 ea PRN PRN N/A 08/23/17 23:45 08/23/18 23:44 Vancomycin HCl (Consult) 1 ea UD PRN N/A 08/24/17 00:30 09/23/17 00:29 Diphenhydramine HCl (Benadryl Cap) 25 mg TID PRN PO 08/24/17 06:15 09/23/17 06:14 08/24/17 15:35 25 MG Lorazepam (Ativan Tab) 1 mg Q6H PRN PO 08/24/17 12:00 09/23/17 00:00 Dicyclomine HCl (Bentyl Cap) 10 mg QID PO 08/24/17 17:00 09/23/17 16:59 08/26/17 12:29 10 MG Vancomycin HCl 1500 mg/Sodium Chloride 530 ml @ 200 mls/hr Q8H IV 08/25/17 14:00 09/03/17 13:59 08/26/17 06:11 200 MLS/HR
[2017-08-26] MEDS ORDERED: SODIUM CHLORIDE 0.9% 1000ML 1,000 ML IV SCH (12:45)
--- NOTE | 2017-08-26 13:42 | Pharmacy Progress Note ---
Pharmacy Abx Dose Short Note Date of Service Aug 26, 2017. Assessment & Plan Item Value Date Time Urine Culture - Final Complete 08/24/17 1400 Urine , Clean Catch THREE TYPES OF ORGANISMS PRESENT, ALL... Blood Culture - Preliminary Resulted 08/23/17 2340 Blood NO GROWTH TO DATE. Blood Culture - Preliminary Resulted 08/23/17 2335 Blood NO GROWTH TO DATE. Vancomycin Level Trough 18.8 mcg/ml 08/26/17 05 Creatinine 0.87 mg/dl 08/26/17540 Est Creatinine Clear Calc Drug Dose 136.7 ml/min 08/26/17 0541 Assessment 32 year old female receiving VANC-IV for treatment of SSTI-right 3rd finger/ small abscess Day # 3 of antimicrobial therapy. Plan Vancomycin * Pt receiving VANC 1500mg (~11.5mg/kg) IV every 8 hours * Trough level of 18.8 mcg/mL is therapeutic. * However, prefer to slightly decrease dose in setting of morbid obesity and potential to accumulate. * MAINTENANCE DOSE: Decreased to 1250mg IV every 8 hours. Will recheck trough in a couple days if still receiving Vanc-IV. * Goal trough level: ~15 mcg/mL Pharmacy will continue to follow and will adjust dose/frequency as necessary. Thank you.
[2017-08-26] MEDS: ACETAMINOPHEN 325 MG TAB PO PRN ×2 (14:00→18:49)
[2017-08-26 14:23] LABS: ALKALINE PHOSPHATASE 87 U/L (45-117); ALT/SGPT 25 U/L (12-78); AMYLASE 43 U/L (25-115); AST/SGOT 23 U/L (15-37)
--- NOTE | 2017-08-26 15:34 | Surgery Consultation ---
Consultation Date of Consultation: Aug 26, 2017. Attending Physician: Alexandro Almanza MD History of Present Illness pt began having upper abdominal pain followed by emesis and diarrhea...was seen in ER where CT was neg and she was sent home. she returned wed b/c of persistent symptoms. she has had extensive w/u to include CT, US, HIDA etc...all of which were neg. she is feeling better though still having some mild right sided abdominal pain. diarrhea has resolved. she is hungry and would like to try a diet. Past Medical/Surgical History Medical Problems: (1) Dehydration Status: Acute (2) Failure of outpatient treatment Status: Acute (3) Nausea Status: Acute (4) Nausea vomiting and diarrhea Status: Acute (5) Right sided abdominal pain Status: Acute Family History Cancer Diabetes mellitus FH: heart disease Hypertension Social History Smoking Status: Never Smoker Drug Use: none Marital Status: single Housing Status: lives with family Occupation Status: employed Allergies Coded Allergies: Adhesives (Unverified Allergy, Unknown, skin irritation with some tapes, 08/23/17) Pseudoephedrine (Verified Adverse Reaction, Intermediate, INC HR, N/V, ) Home Medications Scheduled Bupropion HCl (Bupropion HCl Xl), 300 MG PO QAM Lorazepam (Ativan), 1 MG PO Q6H Oxcarbazepine (Trileptal), 600 MG PO HS Oxcarbazepine (Trileptal), 300 MG PO QAM Pantoprazole (Protonix), 40 MG PO DAILY Trazodone Hcl (Trazodone), 50 MG PO HS Venlafaxine Hcl (Effexor Extended Rel), 75 MG PO DAILY Venlafaxine Hcl (Effexor Extended Rel), 150 MG PO HS Scheduled PRN Sumatriptan Succinate (Imitrex Statdose), 0.5 ML SC UD PRN for Migraine Current Inpatient Medications Current Inpatient Medications Medications (Trade) Dose Ordered Sig/Christine Route Start Time Stop Time Status Last Admin Dose Admin Acetaminophen (Tylenol Tab) 650 mg Q4H PRN PO 08/23/17 23:00 09/22/17 22:59 08/26/17 14:00 650 MG Al Hydrox/Mg Hydrox/Simethicone (Maalox Max Susp) 15 ml Q4H PRN PO 08/23/17 23:00 09/22/17 22:59 Magnesium Hydroxide (Milk Of Magnesia Susp) 30 ml Q6H PRN PO 08/23/17 23:00 09/22/17 22:59 Ondansetron HCl (Zofran Inj) 4 mg Q6H PRN IV 08/23/17 23:00 09/22/17 22:59 08/25/17 15:37 4 MG Bupropion HCl (Wellbutrin-Xl Tab) 300 mg QAM PO 08/24/17 08:00 09/23/17 08:59 08/26/17 08:53 300 MG Oxcarbazepine (Trileptal Tab) 300 mg QAM PO 08/24/17 08:00 09/23/17 08:59 08/26/17 08:53 300 MG Oxcarbazepine (Trileptal Tab) 600 mg HS PO 08/24/17 21:00 09/23/17 20:59 08/25/17 21:20 600 MG Hydromorphone HCl (Dilaudid Inj) 0.5 mg Q3HWA PRN IV 08/23/17 23:00 09/06/17 22:59 08/26/17 05:58 0.5 MG Pantoprazole Sodium (Protonix Tab) 40 mg DAILY PO 08/24/17 08:00 09/23/17 08:59 08/26/17 08:53 40 MG Sumatriptan Succinate (Imitrex Sq Inj) 6 mg UD PRN SC 08/23/17 23:15 09/22/17 23:14 Venlafaxine HCl (effeXOR EXTENDED REL CAP) 75 mg QAM PO 08/24/17 08:00 09/23/17 08:59 08/26/17 08:53 75 MG Trazodone HCl (Desyrel Tab) 50 mg HS PO 08/24/17 21:00 09/23/17 20:59 08/25/17 21:19 50 MG Venlafaxine HCl (effeXOR EXTENDED REL CAP) 150 mg HS PO 08/24/17 21:00 09/23/17 20:59 08/25/17 21:19 150 MG Miscellaneous (Iv Fluids Completed) 1 ea PRN PRN N/A 08/23/17 23:45 08/23/18 23:44 Vancomycin HCl (Consult) 1 ea UD PRN N/A 08/24/17 00:30 09/23/17 00:29 Diphenhydramine HCl (Benadryl Cap) 25 mg TID PRN PO 08/24/17 06:15 09/23/17 06:14 08/24/17 15:35 25 MG Lorazepam (Ativan Tab) 1 mg Q6H PRN PO 08/24/17 12:00 09/23/17 00:00 Dicyclomine HCl (Bentyl Cap) 10 mg QID PO 08/24/17 17:00 09/23/17 16:59 08/26/17 12:29 10 MG Vancomycin HCl 1500 mg/Sodium Chloride 530 ml @ 200 mls/hr Q8H IV 08/25/17 14:00 08/26/17 18:00 08/26/17 13:57 200 MLS/HR Sodium Chloride 1,000 ml @ 75 mls/hr [id number] IV 08/26/17 12:45 09/25/17 12:44 08/26/17 13:59 75 MLS/HR Enoxaparin Sodium (Lovenox Inj) 40 mg QAM SQ 08/27/17 08:00 09/26/17 07:59 UNV Vancomycin HCl 1250 mg/Sodium Chloride 275 ml @ 125 mls/hr Q8H IV 08/26/17 22:00 09/05/17 21:59 Review of Systems Constitutional: + fever Abdomen: + pain, + nausea, + vomiting, + diarrhea Physical Exam Date Time Temp Pulse Resp B/P (MAP) Pulse Ox O2 Delivery O2 Flow Rate FiO2 08/26/17 08:00 Room Air 08/26/17 07:20 36.6 76 18 119/74 (89) 98 08/26/17 00:00 Room Air 08/25/17 23:44 36.8 70 18 109/59 (76) 98 Room Air 08/25/17 16:15 98 Room Air 08/25/17 15:52 36.7 61 18 128/85 (99) 98 Room Air General Appearance: no apparent distress Head: normocephalic, atraumatic Eyes: EOMI, sclerae normal Neck: supple, trachea midline Respiratory/Chest: no respiratory distress, no accessory muscle use Abdomen/GI: soft, + pertinent finding (mild RUQ and right mid-abdominal ttp. no g/r/r) Extremities/Musculoskelatal: no calf tenderness Neurologic/Psych: alert, oriented x 3 Skin: warm/dry, no rash Laboratory Results Last 24 Hours Test 08/26/17 05:41 White Blood Count 7.88 K/uL Red Blood Count 4.35 M/uL Hemoglobin 11.5 g/dL Hematocrit 35.4 % Mean Corpuscular Volume 81.4 fL Mean Corpuscular Hemoglobin 26.4 pg Mean Corpuscular Hemoglobin Concent 32.5 g/dl Platelet Count 204 K/uL Mean Platelet Volume 9.4 fL Neutrophils (%) (Auto) 63.0 % Lymphocytes (%) (Auto) 24.5 % Monocytes (%) (Auto) 9.3 % Eosinophils (%) (Auto) 2.5 % Basophils (%) (Auto) 0.4 % Neutrophils # (Auto) 4.97 K/uL Lymphocytes # (Auto) 1.93 K/uL Monocytes # (Auto) 0.73 K/uL Eosinophils # (Auto) 0.20 K/uL Basophils # (Auto) 0.03 K/uL RDW Standard Deviation 41.6 fL RDW Coefficient of Variation 13.9 % Immature Granulocyte % (Auto) 0.3 % Immature Granulocyte # (Auto) 0.02 K/uL Sodium Level 143 mmol/L Potassium Level 3.7 mmol/L Chloride Level 110 mmol/L Carbon Dioxide Level 29 mmol/L Anion Gap 4.0 mmol/L Blood Urea Nitrogen 5 mg/dl Creatinine 0.87 mg/dl Est Creatinine Clear Calc Drug Dose 136.7 ml/min Estimated GFR () 100.7 Estimated GFR (Non- 86.9 BUN/Creatinine Ratio 5.4 Random Glucose 112 mg/dl Calcium Level 7.9 mg/dl Magnesium Level 1.9 mg/dl Total Bilirubin 0.2 mg/dl Direct Bilirubin < 0.1 mg/dl Aspartate Amino Transf (AST/SGOT) 23 U/L Alanine Aminotransferase (ALT/SGPT) 25 U/L Alkaline Phosphatase 87 U/L Total Protein 6.4 gm/dl Albumin 2.8 gm/dl Amylase Level 43 U/L Lipase 168 U/L Vancomycin Level Trough 18.8 mcg/ml Assessment & Plan abdominal pain, emesis, diarrhea w/u essentially negative suspect gastroenteritis. no indication for surgery at this point pt to try reg food for dinner tonjose recommend d/c with supportive care. f/u with pcp. if symptoms persist, could perform egd/colonoscopy and repeat HIDA with EF. will sign off. call if needed.
[2017-08-26 15:38] VITALS: BP 135/80; PULSE 76; TEMP 36.8; O2SAT 99
[2017-08-26] MEDS: ONDANSETRON INJ 2 MG/ML 2 ML VIAL IV PRN (16:49)
[2017-08-26] MEDS ORDERED: METOCLOPRAMIDE HCL INJ 5 MG/ML 2 ML VIAL IV ONE (18:27)
[2017-08-26] MEDS ORDERED: METOCLOPRAMIDE HCL INJ 5 MG/ML 2 ML VIAL IV PRN (18:30)
[2017-08-26 18:37] LABS: PARTIAL THROMBOPLASTIN RATIO 1.2; PROTHROMBIN TIME (PATIENT) 10.8 SECONDS (9.0-12.0)
--- NOTE | 2017-08-26 18:42 | Progress Note ---
Progress Note Date of Service Aug 26, 2017. Progress Note reevaluated patient at bedside had emesis , non bloody after eating, mostly what she had for dinner reports some epigastric bloatedness and discomfort after emesis no dyspnea, cough, chest pain Reglan ordered Protonix IV BID switch back to clear liquids and D5 NSS may need an EGD discussed plan of care with patient and she is understanding and comfortable with plan of care Alexandro Almanza MD
[2017-08-26] MEDS ORDERED: PROMETHAZINE HCL INJ 12.5 MG in SODIUM CHLORIDE 0.9% 50ML 50 ML IV PRN (19:00)
[2017-08-26] MEDS ORDERED: NURSING VERBAL MED ORDER ONE (19:15)
[2017-08-26] MEDS ORDERED: PROMETHAZINE HCL INJ 12.5 MG in SODIUM CHLORIDE 0.9% 50ML 50 ML IV ONE (19:30)
[2017-08-26] MEDS ORDERED: PANTOprazole INJ 40 MG in SYRINGE 0 ML IV ONE (19:30)
[2017-08-26] MEDS: D5NSS + 20MEQ KCL 1,000 ML IV SCH (19:57)
[2017-08-26] MEDS: VANCOMYCIN INJ 1,250 MG in SODIUM CHLORIDE 0.9% 250ML 250 ML IV SCH (22:00)
[2017-08-26] MEDS: VENLAFAXINE HCL XR 150 MG CAPXR PO SCH (22:01)
[2017-08-26] MEDS: TRAZODONE HCL 50 MG TAB PO SCH (22:01)
[2017-08-27 01:20] VITALS: BP 139/80; PULSE 78; TEMP 36.7; O2SAT 98
[2017-08-27] MEDS: HYDROmorphone INJ 0.5 MG/0.5 ML SYR IV PRN (02:06)
[2017-08-27] MEDS: ACETAMINOPHEN 325 MG TAB PO PRN (06:21)
[2017-08-27] MEDS: VANCOMYCIN INJ 1,250 MG in SODIUM CHLORIDE 0.9% 250ML 250 ML IV SCH ×3 (06:40→21:42)
[2017-08-27 07:47] VITALS: BP 130/87; PULSE 69; TEMP 36.9; O2SAT 98
[2017-08-27] MEDS ORDERED: ENOXAPARIN 40 MG/0.4 ML SYR SQ SCH (08:00)
[2017-08-27 08:07] LABS: ALT/SGPT 30 U/L (12-78); BLOOD UREA NITROGEN 4 mg/dl (7-18); BUN/CREATININE RATIO 4.8 (10-20); CALCIUM 8.1 mg/dl (8.5-10.1); CARBON DIOXIDE 30 mmol/L (21-32); CHLORIDE 107 mmol/L (98-107); CREATININE 0.83 mg/dl (0.60-1.20); GLUCOSE 74 mg/dl (70-99); POTASSIUM 3.7 mmol/L (3.5-5.1); SODIUM 142 mmol/L (136-145)
[2017-08-27 08:10] LABS: ALKALINE PHOSPHATASE 87 U/L (45-117); AST/SGOT 26 U/L (15-37)
[2017-08-27] MEDS: PANTOprazole INJ 40 MG in SYRINGE 0 ML IV SCH ×2 (08:19→20:16)
[2017-08-27] MEDS: VENLAFAXINE HCL XR 75 MG CAPXR PO SCH (08:19)
[2017-08-27] MEDS: D5NSS + 20MEQ KCL 1,000 ML IV SCH ×2 (08:19→23:10)
[2017-08-27] MEDS: DICYCLOMINE HCL 10 MG CAP PO SCH ×4 (08:20→20:14)
[2017-08-27] MEDS: BuPROPion XL 300 MG TABCR PO SCH (08:20)
[2017-08-27] MEDS: OXCARBAZEPINE 150 MG TAB PO SCH ×2 (08:20→21:43)
--- NOTE | 2017-08-27 08:48 | Progress Note ---
Medicine Progress Note Date & Time of Visit: Aug 27, 2017 at 08:39. Subjective patient seen resting in bed, comfortable states she feels improved this morning compared to last night able to tolerate clear liquids, no nausea epigastric and RUQ discomfort slightly better no BMs yet right ring finger and arm pain has resolved denies other symptoms Objective Last 8 Hrs Date Time Temp Pulse Resp B/P (MAP) Pulse Ox O2 Delivery O2 Flow Rate FiO2 08/27/17 08:00 Room Air 08/27/17 07:47 36.9 69 18 130/87 (101) 98 Room Air 08/27/17 01:20 36.7 78 18 139/80 (99) 98 Room Air Physical Exam: General- oriented x 3, not in distress, speaks in sentences with no effort Neck- no JVD Lungs- clear BS bilaterally, no rales/wheezes Heart- regular rhythm; no murmur, normal rate Abdomen- normal BS, non distended, soft, no guarding,still has mild tenderness @ epigastric and R upper and Lower quadrants Extremities- right ring finger: no visible abscess, less erythema, tenderness; no other signs of infection on the hand, can move fully all joints (+) 3 areas of swelling with erythema, warmth, some tenderness on the dorsal forearm and distal arm: resolved now, only mild erythema on the distal arm, ventral-medial side no pretibial edema, no calf tenderness Neuro- alert, oriented x 3;no gross focal deficits Skin- warm & dry Laboratory Results: Last 24 Hours Test 08/26/17 17:56 08/27/17 07:11 Prothrombin Time 10.8 SECONDS Prothromb Time International Ratio 1.0 Activated Partial Thromboplast Time 30.2 SECONDS Partial Thromboplastin Ratio 1.2 Sodium Level 142 mmol/L Potassium Level 3.7 mmol/L Chloride Level 107 mmol/L Carbon Dioxide Level 30 mmol/L Anion Gap 5.0 mmol/L Blood Urea Nitrogen 4 mg/dl Creatinine 0.83 mg/dl Est Creatinine Clear Calc Drug Dose 143.3 ml/min Estimated GFR () 106.6 Estimated GFR (Non- 92.0 BUN/Creatinine Ratio 4.8 Random Glucose 74 mg/dl Calcium Level 8.1 mg/dl Total Bilirubin 0.1 mg/dl Direct Bilirubin < 0.1 mg/dl Aspartate Amino Transf (AST/SGOT) 26 U/L Alanine Aminotransferase (ALT/SGPT) 30 U/L Alkaline Phosphatase 87 U/L Total Protein 6.2 gm/dl Albumin 2.8 gm/dl Assessment & Plan 32 year old female with history of GERD, Obesity, Depression/Anxiety, Migraine presenting with abdominal pain, diarrhea. RIGHT SIDED ABDOMINAL PAIN - initially associated with nausea, profuse diarrhea- both have resolved but still having right sided pain and tenderness - CT abdomen: (+) hepatosteatosis, GB unremarkable GB US: no signs of cholecystitis HIDA scan: negative for cholecystitis, EF not able to be performed as patient was having pain during the test Pelvic US: unrevealing - possible underlying PUD/Gastritis? patient takes Naproxen weekly, has bloating/discomfort after eating fatty foods back to clear liquids started Protonix IV BID, Sucralfate NPO after midnight for possible EGD tomorrow AM will discuss with Dr. Melendez - possible viral gastroenteritis? no diarrhea since admission repeat LFTs, Lipase: normal Bentyl QID - possible GB dysfunction? HIDA scan no cholecystitis but EF not performed Gen Surg consulted if EGD negative, may need repeat HIDA scan to check EF RIGHT RING FINGER ABSCESS, RIGHT ARM CELLULITIS - much improved -continue IV Vanco Day 4, needs 7 days of antibiotics Ortho consulted -- no plans for surgery at this time, appreciate the input HEPATOMEGALY/HEPATIC STEATOSIS - will need monitoring DEPRESSION AND ANXIETY - continue usual medications FULL CODE SCDs for DVT prophylaxis encouraged again to ambulate as much as possible Dispo pending anticipate d/c home when medically stable discussed case with patient again in detail explained the plan of care at length she verbalized understanding and agreement with plan of care Alexandro Almanza MD Current Inpatient Medications: Current Inpatient Medications Medications (Trade) Dose Ordered Sig/Christine Route Start Time Stop Time Status Last Admin Dose Admin Acetaminophen (Tylenol Tab) 650 mg Q4H PRN PO 08/23/17 23:00 09/22/17 22:59 08/27/17 06:21 650 MG Al Hydrox/Mg Hydrox/Simethicone (Maalox Max Susp) 15 ml Q4H PRN PO 08/23/17 23:00 09/22/17 22:59 Magnesium Hydroxide (Milk Of Magnesia Susp) 30 ml Q6H PRN PO 08/23/17 23:00 09/22/17 22:59 Ondansetron HCl (Zofran Inj) 4 mg Q6H PRN IV 08/23/17 23:00 09/22/17 22:59 08/26/17 16:49 4 MG Bupropion HCl (Wellbutrin-Xl Tab) 300 mg QAM PO 08/24/17 08:00 09/23/17 08:59 08/27/17 08:20 300 MG Oxcarbazepine (Trileptal Tab) 300 mg QAM PO 08/24/17 08:00 09/23/17 08:59 08/27/17 08:20 300 MG Oxcarbazepine (Trileptal Tab) 600 mg HS PO 08/24/17 21:00 09/23/17 20:59 08/26/17 22:01 600 MG Hydromorphone HCl (Dilaudid Inj) 0.5 mg Q3HWA PRN IV 08/23/17 23:00 09/06/17 22:59 08/27/17 02:06 0.5 MG Sumatriptan Succinate (Imitrex Sq Inj) 6 mg UD PRN SC 08/23/17 23:15 09/22/17 23:14 Venlafaxine HCl (effeXOR EXTENDED REL CAP) 75 mg QAM PO 08/24/17 08:00 09/23/17 08:59 08/27/17 08:19 75 MG Trazodone HCl (Desyrel Tab) 50 mg HS PO 08/24/17 21:00 09/23/17 20:59 08/26/17 22:01 50 MG Venlafaxine HCl (effeXOR EXTENDED REL CAP) 150 mg HS PO 08/24/17 21:00 09/23/17 20:59 08/26/17 22:01 150 MG Miscellaneous (Iv Fluids Completed) 1 ea PRN PRN N/A 08/23/17 23:45 08/23/18 23:44 Vancomycin HCl (Consult) 1 ea UD PRN N/A 08/24/17 00:30 09/23/17 00:29 Diphenhydramine HCl (Benadryl Cap) 25 mg TID PRN PO 08/24/17 06:15 09/23/17 06:14 08/24/17 15:35 25 MG Lorazepam (Ativan Tab) 1 mg Q6H PRN PO 08/24/17 12:00 09/23/17 00:00 Dicyclomine HCl (Bentyl Cap) 10 mg QID PO 08/24/17 17:00 09/23/17 16:59 08/27/17 08:20 10 MG Enoxaparin Sodium (Lovenox Inj) 40 mg QAM SQ 08/27/17 08:00 09/26/17 07:59 08/27/17 08:19 40 MG Vancomycin HCl 1250 mg/Sodium Chloride 275 ml @ 125 mls/hr Q8H IV 08/26/17 22:00 09/05/17 21:59 08/27/17 06:40 125 MLS/HR Pantoprazole Sodium 40 mg/ Syringe 10 ml @ 5 mls/min BID@0900,2100 IV 08/27/17 09:00 09/26/17 08:59 08/27/17 08:19 5 MLS/MIN Potassium Chloride/Dextrose/ Sod Cl 1,000 ml @ 75 mls/hr [id number] IV 08/26/17 19:30 09/25/17 19:29 08/27/17 08:19 75 MLS/HR Promethazine HCl 12.5 mg/Sodium Chloride 50.5 ml @ 204 mls/hr Q6H PRN IV 08/26/17 19:00 09/25/17 18:59
--- NOTE | 2017-08-27 10:34 | GASTROENTEROLOGY PROGRESS NOTE ---
DATE: 08/27/2017 AGE: 32. SEX: Female. RACE: . This is in cross coverage for AQH. I had the pleasure of seeing Sue Bone at her bedside today. She continues to complain of right upper quadrant abdominal pain, which she describes as 4/10 in intensity, nonradiating without alleviating or exacerbating factors. She describes the pain as sharp and stabbing. She has undergone a workup thus far, which has included a HIDA scan, which showed no evidence of acute cholecystitis. Liver panel has been normal. She was seen by Dr. Khan of surgery, who does not feel that she has any surgical needs at present, which I am in total agreement with. She denies any fevers, chills, nausea, vomiting, hematemesis, melena, hematochezia, jaundice, acholic stools, dark urine, or pruritus. She does admit to taking naproxen daily. She has no further complaints and states that she has never undergone an upper endoscopy in the past, though did undergo colonoscopy approximately [address] Singh, which was normal in her. REVIEW OF SYSTEMS: Negative s50-ranlyo review other than pertinent positives listed in the HPI. PHYSICAL EXAMINATION: VITAL SIGNS: Temp 36.9, pulse 69, respirations 18, blood pressure 130/87, and pulse ox 98% on room air. GENERAL: She is awake, cooperative, in no acute distress. She is obese. HEAD: Normocephalic and atraumatic. EYES: Pupils equally round. Extraocular muscles are intact. ENT: External evaluation of ears and nose are normal. Oropharynx is clear. NECK: Soft and supple. There is no JVD or lymphadenopathy. CHEST: Clear to auscultation bilaterally. CARDIOVASCULAR SYSTEM: Regular rate and rhythm. ABDOMEN: Soft. Tender in the right upper quadrant. Nondistended. Positive bowel sounds. There is no hepatosplenomegaly or stigmata of chronic liver disease. EXTREMITIES: No clubbing, cyanosis, or edema. LABORATORY STUDIES: From yesterday include a CBC, which shows her white blood cell count of 7.88, hemoglobin 11.5, hematocrit 35.4 and a platelet count of 204. Liver panel as mentioned was unremarkable. IMPRESSION: This is a 32-year-old female with right upper quadrant abdominal pain in the setting of NSAID use and a negative workup for acute cholecystitis. PLAN: At the present time, I would recommend that the patient be continued on PPI therapy. She is currently on Protonix 40 mg IV b.i.d. I would recommend keeping her n.p.o. after midnight and she will have an upper endoscopy performed tomorrow by Dr. Dacosta of [facility]. I will follow her clinical course until Dr. Dacosta resumes her care tomorrow. Once again, thanks for allowing me to participate in the care of this patient. If you have any further questions, please do not hesitate in contacting me.
--- NOTE | 2017-08-27 10:36 | Surgery Progress Note ---
Surgery Progress Note Date of Service Aug 27, 2017. Subjective pt had some nausea with regular food last night. back down to liquid diet. diarrhea resolved. Objective Vital Signs: Date Time Temp Pulse Resp B/P (MAP) Pulse Ox O2 Delivery O2 Flow Rate FiO2 08/27/17 08:00 Room Air 08/27/17 07:47 36.9 69 18 130/87 (101) 98 Room Air 08/27/17 01:20 36.7 78 18 139/80 (99) 98 Room Air 08/27/17 00:00 Room Air 08/26/17 16:00 Room Air 08/26/17 15:38 36.8 76 16 135/80 (98) 99 Room Air General Appearance: no apparent distress Head: normocephalic, atraumatic Neck: supple, no JVD Respiratory/Chest: no respiratory distress, no accessory muscle use Abdomen: soft, + pertinent finding (mild RUQ ttp. ) Extremities: non-tender Laboratory Results: Results Past 24 Hours Test 08/26/17 17:56 08/27/17 07:11 Range/Units Prothrombin Time 10.8 9.0-12.0 SECONDS Prothromb Time International Ratio 1.0 0.9-1.1 Activated Partial Thromboplast Time 30.2 21.0-31.0 SECONDS Partial Thromboplastin Ratio 1.2 Sodium Level 142 136-145 mmol/L Potassium Level 3.7 3.5-5.1 mmol/L Chloride Level 107 98-107 mmol/L Carbon Dioxide Level 30 21-32 mmol/L Anion Gap 5.0 3-11 mmol/L Blood Urea Nitrogen 4 7-18 mg/dl Creatinine 0.83 0.60-1.20 mg/dl Est Creatinine Clear Calc Drug Dose 143.3 ml/min Estimated GFR () 106.6 Estimated GFR (Non- 92.0 BUN/Creatinine Ratio 4.8 10-20 Random Glucose 74 70-99 mg/dl Calcium Level 8.1 8.5-10.1 mg/dl Total Bilirubin 0.1 0.2-1 mg/dl Direct Bilirubin < 0.1 0-0.2 mg/dl Aspartate Amino Transf (AST/SGOT) 26 15-37 U/L Alanine Aminotransferase (ALT/SGPT) 30 12-78 U/L Alkaline Phosphatase 87 45-117 U/L Total Protein 6.2 6.4-8.2 gm/dl Albumin 2.8 3.4-5.0 gm/dl Assessment & Plan abdominal pain/nausea ? etiology. w/u so far negative await GI input. ? egd if egd negative and symptoms persists, could consider HIDA with EF or gastric emptying study. will continue to follow along.
--- NOTE | 2017-08-27 10:37 | Orthopedic Progress Note ---
Orthopedic Progress Note Date of Service Aug 27, 2017. Subjective Reports: feeling well, pain controlled w PO medications, Denies: complaints, chest pain, SOB, nausea / vomiting, light headedness Additional Notes: Patient states finger and arm much better Objective N/V intact, incision C/D/I, A&O x3 Right Ring Finger continues to improve well. Minimal erythema, no drainage, scabbing over well. Full ROM with no pain. Right forearm without erythema, much improved. Date Time Temp Pulse Resp B/P (MAP) Pulse Ox O2 Delivery O2 Flow Rate FiO2 08/27/17 08:00 Room Air 08/27/17 07:47 36.9 69 18 130/87 (101) 98 Room Air 08/27/17 01:20 36.7 78 18 139/80 (99) 98 Room Air 08/27/17 00:00 Room Air 08/26/17 16:00 Room Air 08/26/17 15:38 36.8 76 16 135/80 (98) 99 Room Air Laboratory Results 24 Hours: Test 08/26/17 17:56 Prothromb Time International Ratio 1.0 Prothrombin Time 10.8 SECONDS Assessment & Plan Assessment: Right ring finger infection and lymphangitis improving s/p bedside debridement and on IV antibx. Plan: no surgery will be needed at this point. Continue wound care and IV antibx per primary service. ORTHO WILL SIGN OFF FOR NOW, THANK YOU.
[2017-08-27] MEDS: SUCRALFATE 1 GM/10 ML UDC PO SCH ×3 (12:30→20:15)
[2017-08-27] MEDS: HYDROCODONE/ACETAMOPHEN 5/325MG TAB PO PRN (12:32)
[2017-08-27] MEDS: MoRPHine SULFATE 4 MG/ML 1 ML CARP\\VIAL IV PRN ×2 (14:11→21:37)
[2017-08-27 15:35] VITALS: BP 130/81; PULSE 60; TEMP 36.8; O2SAT 100
[2017-08-27] MEDS ORDERED: DOCUSATE SODIUM/SENNA 50/8.6MG TAB PO PRN (18:30)
[2017-08-27] MEDS ORDERED: POLYETHYLENE (MIRALAX) 17 GM PACK PO PRN (18:30)
[2017-08-27] MEDS: ONDANSETRON INJ 2 MG/ML 2 ML VIAL IV PRN (21:33)
[2017-08-27] MEDS: TRAZODONE HCL 50 MG TAB PO SCH (21:42)
[2017-08-27] MEDS: VENLAFAXINE HCL XR 150 MG CAPXR PO SCH (21:42)
[2017-08-27 23:05] VITALS: BP 130/81; PULSE 60; TEMP 36.8; O2SAT 100
[2017-08-27 23:44] VITALS: BP 111/87; PULSE 81; TEMP 36.8; O2SAT 97
[2017-08-28] MEDS: VANCOMYCIN INJ 1,250 MG in SODIUM CHLORIDE 0.9% 250ML 250 ML IV SCH ×3 (05:45→21:42)
[2017-08-28] MEDS: DICYCLOMINE HCL 10 MG CAP PO SCH ×4 (07:20→20:35)
[2017-08-28] MEDS: SUCRALFATE 1 GM/10 ML UDC PO SCH ×2 (07:20→10:18)
[2017-08-28] MEDS: BuPROPion XL 300 MG TABCR PO SCH (07:20)
[2017-08-28] MEDS: VENLAFAXINE HCL XR 75 MG CAPXR PO SCH (07:20)
[2017-08-28] MEDS: OXCARBAZEPINE 150 MG TAB PO SCH ×2 (07:20→21:43)
[2017-08-28 07:49] VITALS: BP 140/86; PULSE 80; TEMP 36.8; O2SAT 98
[2017-08-28] MEDS: PANTOprazole INJ 40 MG in SYRINGE 0 ML IV SCH (07:51)
[2017-08-28] MEDS ORDERED: MIDAZOLAM HCL 1 MG/ML 2ML VIAL ONE (08:27)
[2017-08-28] MEDS ORDERED: LIDOCAINE HCL 2% 2 ML VIAL (20MG/ML) ONE (08:29)
[2017-08-28] MEDS ORDERED: PROPOFOL IV EMULSION 10 MG/ML 20 ML VIAL IV ONE (08:29)
[2017-08-28] MEDS ORDERED: ONDANSETRON INJ 2 MG/ML 2 ML VIAL ONE (08:45)
[2017-08-28 08:55] LABS: ALT/SGPT 30 U/L (12-78); BLOOD UREA NITROGEN 3 mg/dl (7-18); BUN/CREATININE RATIO 3.5 (10-20); CALCIUM 8.6 mg/dl (8.5-10.1); CARBON DIOXIDE 26 mmol/L (21-32); CHLORIDE 106 mmol/L (98-107); CREATININE 0.87 mg/dl (0.60-1.20); GLUCOSE 87 mg/dl (70-99); SODIUM 139 mmol/L (136-145)
--- NOTE | 2017-08-28 08:55 | Endo History and Physical ---
History & Physical Date of Service: Aug 28, 2017. Chief Complaint: Abdominal pain Referring Physician: History of Present Illness Patient with a history of abdominal pain to undergo upper endoscopy today. She denies having difficulty with swallowing or pain with swallowing. Past Surgical History Hx Cardiac Surgery: No Hx Abdominal Surgery: Yes (C SECTION X 2, HYSTER) Hx Post-Op Nausea and Vomiting: Yes Hx Cancer Surgery: No Hx Thoracic Surgery: No Hx Orthopedic: No Hx Urinary Tract Surgery: No Social History Smoking Status: Never Smoker Hx Substance Use: Yes (morphine PRN pain) Hx Alcohol Use: No Allergies Coded Allergies: Adhesives (Unverified Allergy, Unknown, skin irritation with some tapes, 08/23/17) Pseudoephedrine (Verified Adverse Reaction, [facility] HR, N/V, ) Current Medications Reported Home Medications Medications Dose Route/Sig Max Daily Dose Days Date Category Trazodone (Trazodone HCl) 50 Mg Tab 50 Mg PO HS 08/23/17 Rx Effexor Extended Rel (Venlafaxine Hcl) 150 Mg Cap 150 Mg PO HS 08/23/17 Rx Effexor Extended Rel (Venlafaxine Hcl) 75 Mg Capcr 75 Mg PO DAILY 08/23/17 Rx Imitrex Statdose (Sumatriptan Succinate) 6 Mg/0.5 Ml Inj 0.5 Ml SC UD PRN 08/23/17 Rx Protonix (Pantoprazole Sodium) 40 Mg Tab 40 Mg PO DAILY 30 08/23/17 Rx Ativan (Lorazepam) 1 Mg Tab 1 Mg PO Q6H 08/23/17 Rx Trileptal (Oxcarbazepine) 300 Mg Tab 300 Mg PO QAM 08/22/17 Reported Trileptal (Oxcarbazepine) 300 Mg Tab 600 Mg PO HS 09/08/16 Reported Bupropion HCl Xl (Bupropion HCl) 300 Mg Tabcr 300 Mg PO QAM 11/22/14 Reported Vital Signs Weight (Kilograms): 131.500 Height (Feet): 5 Height (Inches): 11.00 Date Time Temp Pulse Resp B/P (MAP) Pulse Ox O2 Delivery O2 Flow Rate FiO2 08/28/17 08:36 36.8 75 16 118/75 (89) 98 Room Air 08/28/17 08:00 Room Air 08/28/17 07:49 36.8 80 20 140/86 (104) 98 Room Air 08/28/17 00:00 Room Air 08/27/17 23:44 36.8 81 20 111/87 (95) 97 Room Air 08/27/17 23:05 36.8 60 16 130/81 100 Room Air 08/27/17 16:00 Room Air 08/27/17 15:35 36.8 60 16 130/81 (97) 100 Physical Exam General Appearance: no apparent distress Respiratory/Chest: Respiratory effort: no dyspnea Cardiovascular: Heart Auscultation: RRR Abdomen: Inspection & Palpation: soft Assessment and Plan Patient for upper endoscopy today. We discussed the risks to include bleeding, infection, perforation, pain and need for follow-up studies.
[2017-08-28 08:58] LABS: ALKALINE PHOSPHATASE 103 U/L (45-117); AST/SGOT 20 U/L (15-37)
--- NOTE | 2017-08-28 09:12 | GI REPORT ---
Procedure Date: 08/28/2017 8:55 AM Procedure: Upper GI endoscopy Indications: Epigastric abdominal pain, Abdominal pain in the right upper quadrant Medicines: Monitored Anesthesia Care Complications: No immediate complications. Estimated blood loss: Minimal. Estimated Blood Loss: Estimated blood loss was minimal. Procedure: Pre-Anesthesia Assessment: - Prior to the procedure, a History and Physical was performed, and patient medications, allergies and sensitivities were reviewed. The patient's tolerance of previous anesthesia was reviewed. - The risks and benefits of the procedure and the sedation options and risks were discussed with the patient. All questions were answered and informed consent was obtained. - Patient identification and proposed procedure were verified prior to the procedure by the physician, the nurse and the assistant professor of business. The procedure was verified in the procedure room. - Pre-procedure physical examination revealed no contraindications to sedation. - ASA Grade Assessment: II - A patient with mild systemic disease. - After reviewing the risks and benefits, the patient was deemed in satisfactory condition to undergo the procedure. - The anesthesia plan was to use general anesthesia. - Immediately prior to administration of medications, the patient was re-assessed for adequacy to receive sedatives. - The heart rate, respiratory rate, oxygen saturations, blood pressure, adequacy of pulmonary ventilation, and response to care were monitored throughout the procedure. - The physical status of the patient was re-assessed after the procedure. After obtaining informed consent, the endoscope was passed under direct vision. Throughout the procedure, the patient's blood pressure, pulse, and oxygen saturations were monitored continuously. The scope was introduced through the mouth, and advanced to the third part of duodenum. The upper GI endoscopy was accomplished without difficulty. The patient tolerated the procedure well. Findings: The examined esophagus was normal. The Z-line was regular and was found 37 cm from the incisors. The entire examined stomach was normal. Biopsies were taken with a cold forceps for Helicobacter pylori testing. Estimated blood loss was minimal. The examined duodenum was normal. Biopsies for histology were taken with a cold forceps for evaluation of celiac disease. Estimated blood loss was minimal. Impression: - Normal esophagus. - Z-line regular, 37 cm from the incisors. - Normal stomach. Biopsied. - Normal examined duodenum. Biopsied. Recommendation: - Advance diet as tolerated today. - Observe patient's clinical course. - Await pathology results. - Perhaps symptoms are related to one of the medications Anjana Dacosta D.O. Anjana Dacosta DO 08/28/2017 9:11:56 AM This report has been signed electronically. Note Initiated On: 08/28/2017 8:55 AM I attest to the content of the Intraoperative Record and orders documented therein, exceptions below
--- NOTE | 2017-08-28 09:30 | Anesthesiology Progress Note ---
Anesthesia Post Op Note Date & Time Aug 28, 2017 at 09:30 Vital Signs Pain Intensity: 0.0 Vital Signs Past 12 Hours Date Time Temp Pulse Resp B/P (MAP) Pulse Ox O2 Delivery O2 Flow Rate FiO2 08/28/17 09:22 67 18 134/92 (106) 95 Room Air 08/28/17 09:16 69 12 129/72 (91) 97 Room Air 08/28/17 08:36 36.8 75 16 118/75 (89) 98 Room Air 08/28/17 08:00 Room Air 08/28/17 07:49 36.8 80 20 140/86 (104) 98 Room Air 08/28/17 00:00 Room Air 08/27/17 23:44 36.8 81 20 111/87 (95) 97 Room Air 08/27/17 23:05 36.8 60 16 130/81 100 Room Air Notes Mental Status: alert / awake / arousable, participated in evaluation Pt Amnestic to Procedure: Yes Nausea / Vomiting: adequately controlled Pain: adequately controlled Airway Patency, RR, SpO2: stable & adequate BP & HR: stable & adequate Hydration State: stable & adequate Anesthetic Complications: no major complications apparent
[2017-08-28] MEDS: D5NSS + 20MEQ KCL 1,000 ML IV SCH (10:19)
[2017-08-28 11:38] VITALS: BP 129/82; PULSE 53; TEMP 36.8; O2SAT 100
--- NOTE | 2017-08-28 12:28 | Surgery Progress Note ---
Surgery Progress Note Date of Service Aug 28, 2017. Subjective + diet (Tolerating Clear Liquids), No bowel movement, No nausea, No vomiting Patient is still having some RUQ abdominal pain. No bowel movement today. Objective Vital Signs: Date Time Temp Pulse Resp B/P (MAP) Pulse Ox O2 Delivery O2 Flow Rate FiO2 08/28/17 11:38 36.8 53 20 129/82 (98) 100 Room Air 08/28/17 09:45 67 16 129/82 (98) 95 Room Air 08/28/17 09:32 62 18 129/76 (93) 96 Room Air 08/28/17 09:22 67 18 134/92 (106) 95 Room Air 08/28/17 09:16 69 12 129/72 (91) 97 Room Air 08/28/17 08:36 36.8 75 16 118/75 (89) 98 Room Air 08/28/17 08:00 Room Air 08/28/17 07:49 36.8 80 20 140/86 (104) 98 Room Air 08/28/17 00:00 Room Air 08/27/17 23:44 36.8 81 20 111/87 (95) 97 Room Air 08/27/17 23:05 36.8 60 16 130/81 100 Room Air 08/27/17 16:00 Room Air 08/27/17 15:35 36.8 60 16 130/81 (97) 100 General Appearance: no apparent distress Head: normocephalic, atraumatic Respiratory/Chest: no respiratory distress, no accessory muscle use Abdomen: non distended, soft, no organomegaly, + tenderness (RUQ) Extremities: non-tender Laboratory Results: Results Past 24 Hours Test 08/28/17 08:10 Range/Units Sodium Level 139 136-145 mmol/L Potassium Level 4.0 3.5-5.1 mmol/L Chloride Level 106 98-107 mmol/L Carbon Dioxide Level 26 21-32 mmol/L Anion Gap 6.0 3-11 mmol/L Blood Urea Nitrogen 3 7-18 mg/dl Creatinine 0.87 0.60-1.20 mg/dl Est Creatinine Clear Calc Drug Dose 136.7 ml/min Estimated GFR () 100.7 Estimated GFR (Non- 86.9 BUN/Creatinine Ratio 3.5 10-20 Random Glucose 87 70-99 mg/dl Calcium Level 8.6 8.5-10.1 mg/dl Total Bilirubin 0.2 0.2-1 mg/dl Direct Bilirubin < 0.1 0-0.2 mg/dl Aspartate Amino Transf (AST/SGOT) 20 15-37 U/L Alanine Aminotransferase (ALT/SGPT) 30 12-78 U/L Alkaline Phosphatase 103 45-117 U/L Total Protein 7.1 6.4-8.2 gm/dl Albumin 3.2 3.4-5.0 gm/dl Diagnostic Interpretation: EGD w/ Dr. Anjana Dacosta 08/28/2017 -negative findings Assessment & Plan No BM today, nausea improved - tolerating clears. RUQ pain persistent. EGD negative Will order HIDA scan w/ EF to further assess gallbladder etiology. - may consider gastric emptying study in future. Will continue to follow
[2017-08-28] MEDS: HYDROCODONE/ACETAMOPHEN 5/325MG TAB PO PRN ×2 (12:48→21:44)
[2017-08-28] MEDS ORDERED: DOCUSATE SODIUM/SENNA 50/8.6MG TAB PO ONE (13:15)
[2017-08-28] MEDS ORDERED: VANCOMYCIN TROUGH ONE (13:30)
--- NOTE | 2017-08-28 13:50 | Progress Note ---
Medicine Progress Note Date & Time of Visit: Aug 28, 2017 at 13:41. Subjective seen s/p EGD tolerated procedure well comfortable, not in distress states epigastric and RUQ pain about the same no nausea, tolerating clears no BM yet states she has mild frontal headache no pain on the right ring finger, hand, or arm now no other symptoms Objective Last 8 Hrs Date Time Temp Pulse Resp B/P (MAP) Pulse Ox O2 Delivery O2 Flow Rate FiO2 08/28/17 11:38 36.8 53 20 129/82 (98) 100 Room Air 08/28/17 09:45 67 16 129/82 (98) 95 Room Air 08/28/17 09:32 62 18 129/76 (93) 96 Room Air 08/28/17 09:22 67 18 134/92 (106) 95 Room Air 08/28/17 09:16 69 12 129/72 (91) 97 Room Air 08/28/17 08:36 36.8 75 16 118/75 (89) 98 Room Air 08/28/17 08:00 Room Air 08/28/17 07:49 36.8 80 20 140/86 (104) 98 Room Air Physical Exam: General- oriented x 3, not in distress, speaks in sentences with no effort Neck- no JVD Lungs- clear breath sounds BL Heart- regular rhythm; no murmur, normal rate Abdomen- normal BS, non distended, soft, no guarding,still has mild tenderness @ epigastric and R upper quadrant Extremities- right ring finger: no visible abscess, less erythema, tenderness; no other signs of infection on the hand, can move fully all joints (+) 3 areas of swelling with erythema, warmth, some tenderness on the dorsal forearm and distal arm: resolved now, only mild erythema on the distal arm, ventral-medial side- also improving no pretibial edema, no calf tenderness Neuro- alert, oriented x 3;no gross focal deficits Skin- warm & dry Laboratory Results: Last 24 Hours Test 08/28/17 08:10 08/28/17 13:30 Sodium Level 139 mmol/L Potassium Level 4.0 mmol/L Chloride Level 106 mmol/L Carbon Dioxide Level 26 mmol/L Anion Gap 6.0 mmol/L Blood Urea Nitrogen 3 mg/dl Creatinine 0.87 mg/dl Est Creatinine Clear Calc Drug Dose 136.7 ml/min Estimated GFR () 100.7 Estimated GFR (Non- 86.9 BUN/Creatinine Ratio 3.5 Random Glucose 87 mg/dl Calcium Level 8.6 mg/dl Total Bilirubin 0.2 mg/dl Direct Bilirubin < 0.1 mg/dl Aspartate Amino Transf (AST/SGOT) 20 U/L Alanine Aminotransferase (ALT/SGPT) 30 U/L Alkaline Phosphatase 103 U/L Total Protein 7.1 gm/dl Albumin 3.2 gm/dl Assessment & Plan 32 year old female with history of GERD, Obesity, Depression/Anxiety, Migraine presenting with abdominal pain, diarrhea. RIGHT SIDED ABDOMINAL PAIN - initially associated with nausea, profuse diarrhea- both have resolved but still having right sided pain and tenderness - CT abdomen: (+) hepatosteatosis, GB unremarkable GB US: no signs of cholecystitis HIDA scan: negative for cholecystitis, EF not able to be performed as patient was having pain during the test Pelvic US: unrevealing - PUD/Gastritis ruled out patient takes Naproxen weekly, has bloating/discomfort after eating fatty foods s/p EGD: unrevealing, biopsies pending continue Protonix IV daily awaiting further recommendations - possible GB dysfunction? HIDA scan no cholecystitis but EF not performed as procedure had to be cancelled as patient was having discomfort Gen Surg consulted repeat HIDA with EF :Pending - possible viral gastroenteritis? no diarrhea since admission repeat LFTs, Lipase: normal Bentyl QID CONSTIPATION - no BMs for a few days now, although patient only has been on clear liquids since admission Senokot S + PRN Milk of Mg ordered may need KUB - also has been on IV narcotics for pain, may benefit from Relistor RIGHT RING FINGER ABSCESS, RIGHT ARM CELLULITIS - much improved -continue IV Vanco Day 5, needs 7 days of antibiotics Ortho consulted -- no plans for surgery at this time, appreciate the input HEPATOMEGALY/HEPATIC STEATOSIS - will need monitoring DEPRESSION AND ANXIETY - continue usual medications FULL CODE DVT Prophylaxis Heparin q8h SCDs encouraged again to ambulate as much as possible Dispo pending anticipate d/c home when medically stable discussed case with patient again in detail explained the plan of care at length she verbalized understanding and agreement with plan of care Alexandro Almanza MD Current Inpatient Medications: Current Inpatient Medications Medications (Trade) Dose Ordered Sig/Christine Route Start Time Stop Time Status Last Admin Dose Admin Acetaminophen (Tylenol Tab) 650 mg Q4H PRN PO 08/23/17 23:00 09/22/17 22:59 08/27/17 06:21 650 MG Al Hydrox/Mg Hydrox/Simethicone (Maalox Max Susp) 15 ml Q4H PRN PO 08/23/17 23:00 09/22/17 22:59 Magnesium Hydroxide (Milk Of Magnesia Susp) 30 ml Q6H PRN PO 08/23/17 23:00 09/22/17 22:59 Ondansetron HCl (Zofran Inj) 4 mg Q6H PRN IV 08/23/17 23:00 09/22/17 22:59 08/27/17 21:33 4 MG Bupropion HCl (Wellbutrin-Xl Tab) 300 mg QAM PO 08/24/17 08:00 09/23/17 08:59 08/27/17 08:20 300 MG Oxcarbazepine (Trileptal Tab) 300 mg QAM PO 08/24/17 08:00 09/23/17 08:59 08/27/17 08:20 300 MG Oxcarbazepine (Trileptal Tab) 600 mg HS PO 08/24/17 21:00 09/23/17 20:59 08/27/17 21:43 600 MG Sumatriptan Succinate (Imitrex Sq Inj) 6 mg UD PRN SC 08/23/17 23:15 09/22/17 23:14 Venlafaxine HCl (effeXOR EXTENDED REL CAP) 75 mg QAM PO 08/24/17 08:00 09/23/17 08:59 08/27/17 08:19 75 MG Trazodone HCl (Desyrel Tab) 50 mg HS PO 08/24/17 21:00 09/23/17 20:59 08/27/17 21:42 50 MG Venlafaxine HCl (effeXOR EXTENDED REL CAP) 150 mg HS PO 08/24/17 21:00 09/23/17 20:59 08/27/17 21:42 150 MG Miscellaneous (Iv Fluids Completed) 1 ea PRN PRN N/A 08/23/17 23:45 08/23/18 23:44 Vancomycin HCl (Consult) 1 ea UD PRN N/A 08/24/17 00:30 09/23/17 00:29 Diphenhydramine HCl (Benadryl Cap) 25 mg TID PRN PO 08/24/17 06:15 09/23/17 06:14 08/24/17 15:35 25 MG Lorazepam (Ativan Tab) 1 mg Q6H PRN PO 08/24/17 12:00 09/23/17 00:00 Dicyclomine HCl (Bentyl Cap) 10 mg QID PO 08/24/17 17:00 09/23/17 16:59 08/27/17 20:14 10 MG Vancomycin HCl 1250 mg/Sodium Chloride 275 ml @ 125 mls/hr Q8H IV 08/26/17 22:00 09/05/17 21:59 08/28/17 05:45 125 MLS/HR Pantoprazole Sodium 40 mg/ Syringe 10 ml @ 5 mls/min BID@0900,2100 IV 08/27/17 09:00 09/26/17 08:59 08/28/17 07:51 5 MLS/MIN Potassium Chloride/Dextrose/ Sod Cl 1,000 ml @ 75 mls/hr [id number] IV 08/26/17 19:30 09/25/17 19:29 08/28/17 10:19 75 MLS/HR Promethazine HCl 12.5 mg/Sodium Chloride 50.5 ml @ 204 mls/hr Q6H PRN IV 08/26/17 19:00 09/25/17 18:59 Acetaminophen/ Hydrocodone Bitart (Bradford 5/325 Tab) 1 tab Q6H PRN PO 08/27/17 08:45 09/10/17 08:44 08/28/17 12:48 1 TAB Morphine Sulfate (MoRPHine SULFATE INJ) 4 mg Q6H PRN IV 08/27/17 08:45 09/10/17 08:44 08/27/17 21:37 4 MG Sucralfate (Carafate Susp) 1 gm QID PO 08/27/17 12:00 09/26/17 11:59 08/27/17 20:15 1 GM Polyethylene (Miralax Powder Packet) 17 gm DAILY PRN PO 08/27/17 18:30 09/26/17 18:29 08/27/17 19:17 17 GM Senna/Docusate Sodium (Senokot S Tab) 1 tab DAILY PRN PO 08/27/17 18:30 09/26/17 18:29 Senna/Docusate Sodium (Senokot S Tab) 1 tab QAM PO 08/29/17 08:00 09/28/17 07:59
[2017-08-28] MEDS ORDERED: HEPARIN SOD 5000 UNIT/0.5 ML CARP SQ SCH (14:00)
[2017-08-28 15:15] VITALS: BP 130/82; PULSE 58; TEMP 36.9; O2SAT 97
[2017-08-28 15:29] LABS: BENZODIAZEPINE, URINE POS (NEG); COCAINE,URINE NEG (NEG); PHENCYCLIDINE, URINE NEG (NEG)
--- NOTE | 2017-08-28 15:36 | Pharmacy Progress Note ---
Pharmacy Abx Dose Short Note Date of Service Aug 28, 2017. Assessment & Plan Assessment 32 year old female receiving Vancomycin IV for treatment of finger infection with abscess. Day # [address] therapy[address] Per Dr. Almanza's note, she is to get a 7 day course of antibiotic therapy. Item Value Date Time Vancomycin Level Trough 17.1 mcg/ml 08/28/17 1348 Goal trough level 15-20 mcg/mL for possible MRSA coverage. Trough level of 17.1 mcg/mL is within therapeutic range. Patient's renal function remains stable. Plan Vancomycin * Continue dose of 1250 mg IV every 8 hours * No further levels ordered unless vancomycin therapy is extended or renal function changes. Pharmacy will continue to follow and will adjust dose/frequency as necessary. Thank you.
--- NOTE | 2017-08-28 15:40 | Progress Note ---
Progress Note Date of Service Aug 28, 2017. Progress Note Pt S/P EGD with persistent symptoms.. Discussed with Dr. Almanza on phone. GI recommends completing HIDA scan and urine toxicology screen (this was already ordered by Dr. Dacosta). No GI contraindication to discharge. Will follow up as an outpatient with colonoscopy in 4-6 weeks if symptoms persist.
[2017-08-28] MEDS: TRAZODONE HCL 50 MG TAB PO SCH (21:42)
[2017-08-28] MEDS: VENLAFAXINE HCL XR 150 MG CAPXR PO SCH (21:43)
[2017-08-28] MEDS: HEPARIN SOD 5000 UNIT/0.5 ML CARP SQ SCH (21:45)
[2017-08-29 00:11] VITALS: BP 126/84; PULSE 60; TEMP 36.8; O2SAT 98
[2017-08-29] MEDS: D5NSS + 20MEQ KCL 1,000 ML IV SCH ×2 (00:33→13:49)
[2017-08-29] MEDS: HEPARIN SOD 5000 UNIT/0.5 ML CARP SQ SCH ×3 (06:06→22:20)
[2017-08-29] MEDS: VANCOMYCIN INJ 1,250 MG in SODIUM CHLORIDE 0.9% 250ML 250 ML IV SCH ×3 (06:08→22:10)
[2017-08-29 07:15] VITALS: BP 115/77; PULSE 59; TEMP 36.5; O2SAT 99
[2017-08-29] MEDS: VENLAFAXINE HCL XR 75 MG CAPXR PO SCH (07:16)
[2017-08-29] MEDS: DICYCLOMINE HCL 10 MG CAP PO SCH ×4 (07:16→20:57)
[2017-08-29] MEDS: OXCARBAZEPINE 150 MG TAB PO SCH ×2 (07:17→22:14)
[2017-08-29] MEDS: DOCUSATE SODIUM/SENNA 50/8.6MG TAB PO SCH (07:17)
[2017-08-29] MEDS: BuPROPion XL 300 MG TABCR PO SCH (07:17)
[2017-08-29] MEDS: PANTOprazole INJ 40 MG in SYRINGE 0 ML IV SCH (07:37)
[2017-08-29 08:09] LABS: HEMATOCRIT 36.8 % (37-47); MEAN CELL VOLUME 81.1 fL (80-100); MEAN CORPUSCULAR HEMOGLOBIN 26.2 pg (25-34); MEAN CORPUSCULAR HGB CONC 32.3 g/dl (32-36); MEAN PLATELET VOLUME 9.5 fL (7.4-10.4); PLATELET COUNT 220 K/uL (130-400); RED BLOOD COUNT 4.54 M/uL (4.2-5.4); WHITE BLOOD COUNT 7.14 K/uL (4.8-10.8)
[2017-08-29] MEDS ORDERED: SINCALIDE INJ 2.6 MCG in SODIUM CHLORIDE 0.9% 100ML 100 ML IV ONE (08:15)
[2017-08-29 08:36] LABS: CREATININE 0.9 mg/dl (0.60-1.20)
--- NOTE | 2017-08-29 10:34 | DIAGNOSTIC IMAGING REPORT ---
HEPATOBILIARY EF IMAGING CLINICAL HISTORY: 32 years-old Female with RUQ pain; Previous HIDA done without EF - Needs EF. . Acute right upper quadrant abdominal pain with fever. TECHNIQUE: Following the intravenous administration of 5.4 mCi of technetium-99m Choletec, sequential abdominal images were obtained. In order to evaluate the contractile response of the gallbladder, 2.6 mcg of Kinevac was administered by slow intravenous infusion over 30 min starting approximately 60 min after the administration of the radiopharmaceutical. Sequential imaging was continued for 45 min after the start of the Kinevac infusion. COMPARISON: Hepatobiliary scan 08/25/2017 FINDINGS: The patient reports pain with Kinevac injection. There is prompt, uniform accumulation of the tracer by the liver. There is normal filling of the intrahepatic ducts, common bile duct and gallbladder and normal excretion of the tracer into the duodenum. There is adequate contraction of the gallbladder. The calculated gallbladder ejection fraction is 94% (normal >40%). There is no appreciable enterogastric reflux. IMPRESSION: 1. Normal contractile response of the gallbladder to Kinevac infusion. 2. Normal biliary imaging study. 3. No significant enterogastric reflux. The above report was generated using voice recognition software. It may contain grammatical, syntax or spelling errors. Electronically signed by: Walt Hannon M.D. 08/29/2017 10:33 AM Dictated Date/Time: 08/29/2017 10:29 AM
[2017-08-29] MEDS ORDERED: LACTATED RINGER'S 1000ML 1,000 ML IV SCH ×2 (11:00→12:00)
[2017-08-29] MEDS ORDERED: INDOMETHACIN 50 MG SUPP PR PRN (11:00)
--- NOTE | 2017-08-29 11:16 | Gastroenterology Progress Note ---
Progress Note Date of Service: Aug 29, 2017 Subjective Pt evaluation today including: conversation w/ patient, conversation w/ family , physical exam, chart review, lab review Pt was seen and evaluated, chart reviewed. at bedside who voices much frustration, considering transfer to tertiary care center. Pt continues to have RUQ pain, worse after PO intake, nausea, with intermittent episodes of emesis. No coffee ground emesis or hematemesis. Reports severe epigastric pain and RUQ pain during HIDA scan with increase nausea. Has not had a BM x 3 days. No fever , chills, CP, SOB. HIDA 08/29/17: There is prompt, uniform accumulation of the tracer by the liver. There is normal filling of the intrahepatic ducts, common bile duct and gallbladder and normal excretion of the tracer into the duodenum. There is adequate contraction of the gallbladder. The calculated gallbladder ejection fraction is 94% (normal >40%). There is no appreciable enterogastric reflux. EGD 08/28/17: Normal esophagus. Z-line regular, 37 cm from the incisors. Normal stomach. Biopsied.Normal examined duodenum. Biopsied. HIDA 08/25/17: No evidence of acute cholecystitis. Pelvic transvaginal US 08/23/17: No acute sonographic abnormality is identified in the pelvis noting status post hysterectomy. There is trace and likely physiologic free fluid in the cul-de-sac. Pelvic US 08/23/17: No acute sonographic abnormality is identified in the pelvis noting status post hysterectomy. There is trace and likely physiologic free fluid in the cul-de-sac. Renal US 08/23/17: Unremarkable sonographic assessment of the kidneys and bladder. There has been no significant change from yesterday's abdominal CT scan. Hepatomegaly and hepatic steatosis Chest XR 08/23/17: No active disease in the chest CT ABD/Pelvis 08/22/17: There are no acute infectious or inflammatory findings in the abdomen or pelvis. Hepatomegaly and hepatic steatosis. There is trace and likely physiologic free fluid in the cul-de-sac. RUQ US 08/22/17: No acute sonographic abnormality is identified. No shadowing gallstones are seen. Hepatomegaly and hepatic steatosis.The pancreas was not well visualized due to overlying bowel gas Review of Systems Constitutional: No fever, No chills Respiratory: No cough Cardiac: No chest pain, No edema Abdomen: + pain, + nausea, + vomiting, No diarrhea, No constipation, No GI bleeding Medications Current Inpatient Medications Medications (Trade) Dose Ordered Sig/Christine Route Start Time Stop Time Status Last Admin Dose Admin Acetaminophen (Tylenol Tab) 650 mg Q4H PRN PO 08/23/17 23:00 09/22/17 22:59 08/27/17 06:21 650 MG Al Hydrox/Mg Hydrox/Simethicone (Maalox Max Susp) 15 ml Q4H PRN PO 08/23/17 23:00 09/22/17 22:59 Ondansetron HCl (Zofran Inj) 4 mg Q6H PRN IV 08/23/17 23:00 09/22/17 22:59 08/27/17 21:33 4 MG Bupropion HCl (Wellbutrin-Xl Tab) 300 mg QAM PO 08/24/17 08:00 09/23/17 08:59 08/27/17 08:20 300 MG Oxcarbazepine (Trileptal Tab) 300 mg QAM PO 08/24/17 08:00 09/23/17 08:59 08/27/17 08:20 300 MG Oxcarbazepine (Trileptal Tab) 600 mg HS PO 08/24/17 21:00 09/23/17 20:59 08/28/17 21:43 600 MG Sumatriptan Succinate (Imitrex Sq Inj) 6 mg UD PRN SC 08/23/17 23:15 09/22/17 23:14 Venlafaxine HCl (effeXOR EXTENDED REL CAP) 75 mg QAM PO 08/24/17 08:00 09/23/17 08:59 08/27/17 08:19 75 MG Trazodone HCl (Desyrel Tab) 50 mg HS PO 08/24/17 21:00 09/23/17 20:59 08/28/17 21:42 50 MG Venlafaxine HCl (effeXOR EXTENDED REL CAP) 150 mg HS PO 08/24/17 21:00 09/23/17 20:59 08/28/17 21:43 150 MG Miscellaneous (Iv Fluids Completed) 1 ea PRN PRN N/A 08/23/17 23:45 08/23/18 23:44 Vancomycin HCl (Consult) 1 ea UD PRN N/A 08/24/17 00:30 09/23/17 00:29 Diphenhydramine HCl (Benadryl Cap) 25 mg TID PRN PO 08/24/17 06:15 09/23/17 06:14 08/24/17 15:35 25 MG Lorazepam (Ativan Tab) 1 mg Q6H PRN PO 08/24/17 12:00 09/23/17 00:00 Dicyclomine HCl (Bentyl Cap) 10 mg QID PO 08/24/17 17:00 09/23/17 16:59 08/28/17 20:35 10 MG Vancomycin HCl 1250 mg/Sodium Chloride 275 ml @ 125 mls/hr Q8H IV 08/26/17 22:00 09/05/17 21:59 08/29/17 06:08 125 MLS/HR Potassium Chloride/Dextrose/ Sod Cl 1,000 ml @ 75 mls/hr [id number] IV 08/26/17 19:30 09/25/17 19:29 08/29/17 00:33 75 MLS/HR Promethazine HCl 12.5 mg/Sodium Chloride 50.5 ml @ 204 mls/hr Q6H PRN IV 08/26/17 19:00 09/25/17 18:59 Acetaminophen/ Hydrocodone Bitart ([place] 5/325 Tab) 1 tab Q6H PRN PO 08/27/17 08:45 09/10/17 08:44 08/28/17 21:44 1 TAB Morphine Sulfate (MoRPHine SULFATE INJ) 4 mg Q6H PRN IV 08/27/17 08:45 09/10/17 08:44 08/27/17 21:37 4 MG Polyethylene (Miralax Powder Packet) 17 gm DAILY PRN PO 08/27/17 18:30 09/26/17 18:29 08/27/17 19:17 17 GM Senna/Docusate Sodium (Senokot S Tab) 1 tab DAILY PRN PO 08/27/17 18:30 09/26/17 18:29 Senna/Docusate Sodium (Senokot S Tab) 1 tab QAM PO 08/29/17 08:00 09/28/17 07:59 Pantoprazole Sodium 40 mg/ Syringe 10 ml @ 5 mls/min DAILY IV 08/29/17 08:00 09/26/17 08:59 Heparin Sodium (Porcine) (Heparin Sq 5000 Unit/0.5ml) 5,000 unit Q8 SQ 08/28/17 22:00 09/27/17 21:59 08/29/17 06:06 5,000 UNIT Objective Vital Signs Date Time Temp Pulse Resp B/P (MAP) Pulse Ox O2 Delivery O2 Flow Rate FiO2 08/29/17 08:00 Room Air 08/29/17 07:15 36.5 59 18 115/77 (90) 99 Room Air 08/29/17 00:11 36.8 60 18 126/84 (98) 98 Room Air 08/29/17 00:00 Room Air 08/28/17 16:00 Room Air 08/28/17 15:15 36.9 58 20 130/82 (98) 97 Room Air 08/28/17 11:38 36.8 53 20 129/82 (98) 100 Room Air Physical Exam General Appearance: no apparent distress ( at bedside who voiced concern ) Eyes: PERRL ENT: hearing grossly normal Neck: supple Respiratory/Chest: lungs clear, normal breath sounds Cardiovascular: regular rate, rhythm, no edema Abdomen: normal bowel sounds, soft, no organomegaly, no pulsatile mass, + tenderness (epigastric and RUQ pain) Neurologic/Psych: alert, normal mood/affect, oriented x 3 Skin: normal color, no jaundice, warm/dry Laboratory Results Last 24 Hours Test 08/28/17 13:48 08/28/17 14:45 08/29/17 07:51 Vancomycin Level Trough 17.1 mcg/ml Urine Opiates Screen POS Urine Methadone, Qualitative NEG Urine Barbiturates NEG Urine Phencyclidine (PCP) Level NEG Ur Amphetamine/Methamphetamine NEG MDMA (Ecstasy) Screen POS Urine Benzodiazepines Screen POS Urine Cocaine Metabolite NEG Urine Marijuana (THC) NEG White Blood Count 7.14 K/uL Red Blood Count 4.54 M/uL Hemoglobin 11.9 g/dL Hematocrit 36.8 % Mean Corpuscular Volume 81.1 fL Mean Corpuscular Hemoglobin 26.2 pg Mean Corpuscular Hemoglobin Concent 32.3 g/dl RDW Standard Deviation 41.6 fL RDW Coefficient of Variation 14.1 % Platelet Count 220 K/uL Mean Platelet Volume 9.5 fL Creatinine 0.90 mg/dl Est Creatinine Clear Calc Drug Dose 132.2 ml/min Estimated GFR () 96.7 Estimated GFR (Non- 83.4 Assessment and Plan Patient is a 32 year old female with week-long illness consisting of nausea, vomiting, diarrhea and abdominal pain. Because she has undergone CT, RUQ US, pelvic US that are w/o cause of symptoms and because, other than a mildly elevated WBC that has since normalized she has had normal CBC, CMP, lipase. This illness most likely represents a viral gastroenteritis. Would expect the abdominal pain to improve over the next few days. She tolerated clear liquids this AM. No more episodes of emesis or diarrhea. Will obtain HIDA scan, if abnormal consider outpatient follow up with general surgery. Symptoms persisted, HIDA scan was ordered, but pt did not tolerate the study and became quite nauseated. Symptoms subsided, but returned throughout the weekend and EGD was arranged for 08/28/17 which was normal. There was plan for repeat HIDA scan, which took place today, 08/29/17. Pt reported symptoms during HIDA scan, scan was WNL. Pt has had a thorough workup for her upper abdominal pain, could consider a gastric emptying scan or a colonoscopy if pt is agreeable. Perhaps, symptoms are related to medications she is taking - GI is okay for clear liquid diet today - Consider Colonoscopy - Consider gastric emptying scan - Medication induced - narcotics - Trileptal - venlafaxine - wellbutrin I saw and evaluated the patient with her this afternoon. We did have a long discussion about her abdominal pain history. Based on her evaluation which is included 2 upper endoscopies a colonoscopy and numerous imaging studies I suspect that her symptoms are related to irritable bowel syndrome or perhaps one of her medications. Recommendations Bentyl 10 mg 3 times a day Low-f FODMAP diet Outpatient follow-up in 6-8 weeks or sooner if needed Advance diet as tolerated
--- NOTE | 2017-08-29 13:10 | Progress Note ---
Internal Med Progress Note Date of Service: Aug 29, 2017. Provider Documentation: SUBJECTIVE: Seen and examined at bedside Complains of RUQ abd pain which is persistent Had HIDA scan this morning Patient upset that the cause for abd pain could not be pin pointed Family at bedside Denies nausea, vomiting, diarrhea, chest pain, SOB Patient tearful during conversation and prefers no further testing OBJECTIVE: Vital Signs-as noted below Physical Exam: General Appearance:Obese, no apparent distress Head: normocephalic, Atraumatic Eyes: normal inspection, EOMI, PERRL Neck: supple, Trachea midline Respiratory/Chest: Normal breath sounds, CTA Cardiovascular: S1, S2, No murmur Abdomen/GI:Soft, RUQ tender, Bowel sounds present Extremities/Musculoskelatal:normal inspection, no edema, R ring finger erythema improving Neurologic/Psych:AAOX3, grossly no focal neurological deficits Skin: normal color, warm Lab data as noted below. ASSESSMENT & PLAN: Patient is a 32 yr female with history of GERD, Obesity, Depression/Anxiety, Migraine presenting with abdominal pain, diarrhea. RIGHT SIDED ABDOMINAL PAIN: DD: possible viral gastroenteritis/IBS/Medication induced Initially abd pain is associated with nausea, diarrhea: both have resolved but still has abd pain CT abdomen: (+) hepatosteatosis, GB unremarkable GB US: no signs of cholecystitis HIDA scan: negative Pelvic US: unrevealing PUD/Gastritis ruled out s/p EGD: unrevealing, biopsies pending continue Protonix IV daily Appreciate GI/Surgery Input May need gastric emptying scan/Colonoscopy but patient prefers no further testing LFTs, Lipase: normal On Bentyl QID Clear liquid diet, advance as tolerated Discussed with patient regarding Psych meds possibly contributing to Abdominal pain, patient currently would like to discuss with her Primary Psychiatrist and doesn't want any med changes CONSTIPATION no BMs for a few days now, although patient only has been on clear liquids since admission Senokot S + PRN Milk of Mg ordered also has been on IV narcotics for pain, may benefit from Relistor RIGHT RING FINGER ABSCESS, RIGHT ARM CELLULITIS much improved continue IV Vanco Day 6, needs 7 days of antibiotics Ortho consulted: no plans for surgery at this time, appreciate the input HEPATOMEGALY/HEPATIC STEATOSIS monitor DEPRESSION AND ANXIETY continue usual medications Code Status: FULL CODE DVT Px Heparin SQ SCDs encouraged again to ambulate as much as possible Disposition: Anticipate d/c home when medically stable Vital Signs: Date Time Temp Pulse Resp B/P (MAP) Pulse Ox O2 Delivery O2 Flow Rate FiO2 08/29/17 16:11 36.7 55 18 143/67 (92) 99 Room Air 08/29/17 08:00 Room Air 08/29/17 07:15 36.5 59 18 115/77 (90) 99 Room Air 08/29/17 00:11 36.8 60 18 126/84 (98) 98 Room Air 08/29/17 00:00 Room Air Lab Results: Results Past 24 Hours Test 08/29/17 07:51 Range/Units White Blood Count 7.14 4.8-10.8 K/uL Red Blood Count 4.54 4.2-5.4 M/uL Hemoglobin 11.9 12.0-16.0 g/dL Hematocrit 36.8 37-47 % Mean Corpuscular Volume 81.1 80-100 fL Mean Corpuscular Hemoglobin 26.2 25-34 pg Mean Corpuscular Hemoglobin Concent 32.3 32-36 g/dl RDW Standard Deviation 41.6 36.4-46.3 fL RDW Coefficient of Variation 14.1 11.5-14.5 % Platelet Count 220 130-400 K/uL Mean Platelet Volume 9.5 7.4-10.4 fL Creatinine 0.90 0.60-1.20 mg/dl Est Creatinine Clear Calc Drug Dose 132.2 ml/min Estimated GFR () 96.7 Estimated GFR (Non- 83.4
[2017-08-29] MEDS: ACETAMINOPHEN 325 MG TAB PO PRN (13:50)
[2017-08-29] MEDS: HYDROCODONE/ACETAMOPHEN 5/325MG TAB PO PRN (14:29)
--- NOTE | 2017-08-29 15:23 | Surgery Progress Note ---
Surgery Progress Note Date of Service Aug 29, 2017. Subjective pt and her at bedside. they are quite upset. angry that "nobody can find what's wrong ". raising his voice /upset with everyone. she states she continues to have pain and nausea yet wants to go home. HIDA was negative with a normal EF. Objective Vital Signs: Date Time Temp Pulse Resp B/P (MAP) Pulse Ox O2 Delivery O2 Flow Rate FiO2 08/29/17 08:00 Room Air 08/29/17 07:15 36.5 59 18 115/77 (90) 99 Room Air 08/29/17 00:11 36.8 60 18 126/84 (98) 98 Room Air 08/29/17 00:00 Room Air 08/28/17 16:00 Room Air General Appearance: + mild distress Head: normocephalic, atraumatic Respiratory/Chest: no respiratory distress, no accessory muscle use Abdomen: non distended, soft, + pertinent finding (no peritoneal signs. ) Laboratory Results: Results Past 24 Hours Test 08/29/17 07:51 Range/Units White Blood Count 7.14 4.8-10.8 K/uL Red Blood Count 4.54 4.2-5.4 M/uL Hemoglobin 11.9 12.0-16.0 g/dL Hematocrit 36.8 37-47 % Mean Corpuscular Volume 81.1 80-100 fL Mean Corpuscular Hemoglobin 26.2 25-34 pg Mean Corpuscular Hemoglobin Concent 32.3 32-36 g/dl RDW Standard Deviation 41.6 36.4-46.3 fL RDW Coefficient of Variation 14.1 11.5-14.5 % Platelet Count 220 130-400 K/uL Mean Platelet Volume 9.5 7.4-10.4 fL Creatinine 0.90 0.60-1.20 mg/dl Est Creatinine Clear Calc Drug Dose 132.2 ml/min Estimated GFR () 96.7 Estimated GFR (Non- 83.4 Assessment & Plan 08/29/17 HIDA negative no surgical issues at this time will d/w primary team possibly obtaining a gastric emptying study vs trial of reglan will sign off/call if we can help 08/28/17 abdominal pain/nausea ? etiology. w/u so far negative await GI input. ? egd if egd negative and symptoms persists, could consider HIDA with EF or gastric emptying study. will continue to follow along. abdominal pain/nausea ? etiology. w/u so far negative await GI input. ? egd if egd negative and symptoms persists, could consider HIDA with EF or gastric emptying study. will continue to follow along.
[2017-08-29 16:11] VITALS: BP 143/67; PULSE 55; TEMP 36.7; O2SAT 99
[2017-08-29] MEDS: VENLAFAXINE HCL XR 150 MG CAPXR PO SCH (22:12)
[2017-08-29] MEDS: TRAZODONE HCL 50 MG TAB PO SCH (22:14)
[2017-08-29 23:39] VITALS: BP 137/82; PULSE 63; TEMP 36.8; O2SAT 98
[2017-08-30] MEDS: D5NSS + 20MEQ KCL 1,000 ML IV SCH (03:18)
[2017-08-30] MEDS: VANCOMYCIN INJ 1,250 MG in SODIUM CHLORIDE 0.9% 250ML 250 ML IV SCH ×2 (05:59→12:45)
[2017-08-30] MEDS: HYDROCODONE/ACETAMOPHEN 5/325MG TAB PO PRN (06:02)
[2017-08-30] MEDS: HEPARIN SOD 5000 UNIT/0.5 ML CARP SQ SCH ×2 (06:02→12:45)
[2017-08-30 07:25] VITALS: BP 125/69; PULSE 57; TEMP 36.8; O2SAT 98
[2017-08-30] MEDS: PANTOprazole INJ 40 MG in SYRINGE 0 ML IV SCH (07:55)
[2017-08-30] MEDS: DICYCLOMINE HCL 10 MG CAP PO SCH ×2 (08:36→12:44)
[2017-08-30] MEDS: OXCARBAZEPINE 150 MG TAB PO SCH (08:37)
[2017-08-30] MEDS: VENLAFAXINE HCL XR 75 MG CAPXR PO SCH (08:37)
[2017-08-30] MEDS: BuPROPion XL 300 MG TABCR PO SCH (08:37)
[2017-08-30] MEDS: DOCUSATE SODIUM/SENNA 50/8.6MG TAB PO SCH (08:38)
--- NOTE | 2017-08-30 12:20 | Progress Note ---
Internal Med Progress Note Date of Service: Aug 30, 2017. Provider Documentation: SUBJECTIVE: Seen and examined at bedside States abd pain is much better (Minimal discomfort) Tolerating diet Denies nausea, vomiting, diarrhea, chest pain, SOB OBJECTIVE: Vital Signs-as noted below Physical Exam: General Appearance:Obese, no apparent distress Head: normocephalic, Atraumatic Eyes: normal inspection, EOMI, PERRL Neck: supple, Trachea midline Respiratory/Chest: Normal breath sounds, CTA Cardiovascular: S1, S2, No murmur Abdomen/GI:Soft, non tender, Bowel sounds present Extremities/Musculoskelatal:normal inspection, no edema, R ring finger erythema improving Neurologic/Psych:AAOX3, grossly no focal neurological deficits Skin: normal color, warm Lab data as noted below. ASSESSMENT & PLAN: Patient is a 32 yr female with history of GERD, Obesity, Depression/Anxiety, Migraine presenting with abdominal pain, diarrhea. RIGHT SIDED ABDOMINAL PAIN: DD: possible viral gastroenteritis/IBS/Medication induced Initially abd pain is associated with nausea, diarrhea: both have resolved but still has abd pain CT abdomen: (+) hepatosteatosis, GB unremarkable GB US: no signs of cholecystitis HIDA scan: negative Pelvic US: unrevealing PUD/Gastritis ruled out s/p EGD: unrevealing, biopsies pending On Protonix IV daily Appreciate GI/Surgery Input May need gastric emptying scan/Colonoscopy but patient prefers no further testing LFTs, Lipase: normal On Bentyl QID Tolerating diet Discussed with patient regarding Psych meds possibly contributing to Abdominal pain, patient currently would like to discuss with her Primary Psychiatrist and doesn't want any med changes Abd pain has improved Needs follow up with GI in 6-8 weeks CONSTIPATION no BMs for a few days now, although patient only has been on clear liquids since admission continue Senokot S + PRN Milk of Mg ordered RIGHT RING FINGER ABSCESS, RIGHT ARM CELLULITIS much improved continue IV Vanco Day 05/12 Ortho consulted: no plans for surgery at this time, appreciate the input HEPATOMEGALY/HEPATIC STEATOSIS monitor DEPRESSION AND ANXIETY continue usual medications Code Status: FULL CODE DVT Px Heparin SQ SCDs encouraged again to ambulate as much as possible Disposition: Plan to discharge home today Follow up with for Primary Care on 08/31/17 at 10:45AM Follow up with your production grader in 4-6 weeks as advised Seek immediate medical attention if your symptoms reoccur or worsen Vital Signs: Date Time Temp Pulse Resp B/P (MAP) Pulse Ox O2 Delivery O2 Flow Rate FiO2 08/30/17 10:12 Room Air 08/30/17 07:25 36.8 57 18 125/69 (87) 98 Room Air 08/30/17 00:00 Room Air 08/29/17 23:39 36.8 63 18 137/82 (100) 98 Room Air 08/29/17 16:11 36.7 55 18 143/67 (92) 99 Room Air 08/29/17 16:00 Room Air
[2017-08-30] MEDS ORDERED: BNT10 PO (12:24)
[2017-08-30] MEDS ORDERED: MRLP17X PO (12:24)
--- NOTE | 2017-08-30 12:28 | Discharge Summary ---
Discharge Summary Date of Service Aug 30, 2017. Discharge Summary Admission Date: Aug 25, 2017 at 09:21 Discharge Date: Aug 30, 2017 Discharge Disposition: Home Principal Diagnosis: Possible Irritable Bowel Syndrome Secondary Diagnoses/Problems: RIGHT RING FINGER ABSCESS, RIGHT ARM CELLULITIS Procedures: HIDA 08/29/17: There is prompt, uniform accumulation of the tracer by the liver. There is normal filling of the intrahepatic ducts, common bile duct and gallbladder and normal excretion of the tracer into the duodenum. There is adequate contraction of the gallbladder. The calculated gallbladder ejection fraction is 94% (normal >40%). There is no appreciable enterogastric reflux. EGD 08/28/17: Normal esophagus. Z-line regular, 37 cm from the incisors. Normal stomach. Biopsied.Normal examined duodenum. Biopsied. HIDA 08/25/17: No evidence of acute cholecystitis. Pelvic transvaginal US 08/23/17: No acute sonographic abnormality is identified in the pelvis noting status post hysterectomy. There is trace and likely physiologic free fluid in the cul-de-sac. Pelvic US 08/23/17: No acute sonographic abnormality is identified in the pelvis noting status post hysterectomy. There is trace and likely physiologic free fluid in the cul-de-sac. Renal US 08/23/17: Unremarkable sonographic assessment of the kidneys and bladder. There has been no significant change from yesterday's abdominal CT scan. Hepatomegaly and hepatic steatosis Chest XR 08/23/17: No active disease in the chest CT ABD/Pelvis 08/22/17: There are no acute infectious or inflammatory findings in the abdomen or pelvis. Hepatomegaly and hepatic steatosis. There is trace and likely physiologic free fluid in the cul-de-sac. RUQ US 08/22/17: No acute sonographic abnormality is identified. No shadowing gallstones are seen. Hepatomegaly and hepatic steatosis.The pancreas was not well visualized due to overlying bowel gas Consultations: GI, Surgery, Orthopedics Pending Studies/Follow-Up: Follow up with for Primary Care on 08/31/17 at 10:45AM Follow up with your marketing performance analyst in 4-6 weeks as advised Follow the Dietary changes as recommended Seek immediate medical attention if your symptoms reoccur or worsen Medication Reconciliation New Medications: Dicyclomine HCl (Dicyclomine HCl) 10 Mg Cap 10 MG PO TID for 30 Days, #90 CAP Polyethylene (Miralax) 17 Gm Pow 17 GM PO DAILY PRN for Constipation for 7 Days, #7 EA Continued Medications: Bupropion HCl (Bupropion HCl Xl) 300 Mg Tabcr 300 MG PO QAM Lorazepam (Ativan) 1 Mg Tab 1 MG PO Q6H, #20 TAB Oxcarbazepine (Trileptal) 300 Mg Tab 600 MG PO HS, TAB Oxcarbazepine (Trileptal) 300 Mg Tab 300 MG PO QAM, TAB Pantoprazole (Protonix) 40 Mg Tab 40 MG PO DAILY for 30 Days, #30 TAB Sumatriptan Succinate (Imitrex Statdose) 6 Mg/0.5 Ml Inj 0.5 ML SC UD PRN for Migraine, #1 Trazodone Hcl (Trazodone) 50 Mg Tab 50 MG PO HS, #30 TAB Venlafaxine Hcl (Effexor Extended Rel) 75 Mg Capcr 75 MG PO DAILY, #30 CAP Venlafaxine Hcl (Effexor Extended Rel) 150 Mg Cap 150 MG PO HS, #30 CAP Admission Information HPI (per Admitting provider): CHIEF COMPLAINT: Nausea, vomiting, abdominal pain and diarrhea. HISTORY OF PRESENT ILLNESS: This is a 32-year-old female with past medical history significant for iron deficiency anemia, GERD, depression, anxiety, migraines, comes because of severe abdominal pain, nausea, vomiting and diarrhea. Her symptoms started yesterday morning around 4:00 with nausea, vomiting, abdominal pain and came to the ER. She had a CAT scan of the abdomen and pelvis and ultrasound of the abdomen and workup was negative and she was discharged to home, but today again around 1:00, she was having severe abdominal pain and right-sided abdominal pain and had 20 episodes of watery stools, no blood in the stools and also nausea, vomiting several times and she could not eat anything and she came back to the ER and in the ER again she was found to be somewhat dry, some mild leukocytosis, but hemodynamically stable. Because of the ongoing nausea, vomiting and diarrhea, we have called for admission. Currently resting comfortably. Pain is controlled with pain medications. She says the pain was about 7/8 in severity. Denies any headaches, no blurred vision, no dizziness. No sore throat, no difficulty swallowing. No chest pain. She also gets short of breath whenever she has severe abdominal pain. No cough, no fever, no chills. She has normal bladder movements. No blood in the urine. Appetite is not good because of this ongoing symptoms. Physical Exam (per Admitting): PHYSICAL EXAMINATION: GENERAL: The patient is obese, not in distress. VITAL SIGNS: Temperature 37.1, pulse 83, respiratory rate 20, blood pressure 132/70, oxygen 97%. HEENT: No pallor, no icterus. Pupils equal, round, and reactive to light. NECK: No JVD, no neck masses, no carotid bruits. CARDIOVASCULAR: S1, S2 heard, regular rate and rhythm, no murmur, no gallop. RESPIRATORY SYSTEM: Clear to auscultation bilaterally. No wheezing, no crackles. ABDOMEN: Soft, bowel sounds present. Tenderness in the right upper and right lower quadrant. No guarding, no rigidity. No distention. CENTRAL NERVOUS SYSTEM: Cranial nerves II-XII grossly intact. Nonfocal. EXTREMITIES: No edema. erythema of distal part of right third finger. mild macular rash seen on right fore arm Hospital Course Patient is a 32 yr female with history of GERD, Obesity, Depression/Anxiety, Migraine presenting with abdominal pain, diarrhea. RIGHT SIDED ABDOMINAL PAIN: DD: possible viral gastroenteritis/IBS/Medication induced Initially abd pain is associated with nausea, diarrhea: both have resolved but still has abd pain CT abdomen: (+) hepatosteatosis, GB unremarkable GB US: no signs of cholecystitis HIDA scan: negative Pelvic US: unrevealing PUD/Gastritis ruled out s/p EGD: unrevealing, biopsies pending On Protonix IV daily Appreciate GI/Surgery Input May need gastric emptying scan/Colonoscopy but patient prefers no further testing LFTs, Lipase: normal On Bentyl QID Tolerating diet Discussed with patient regarding Psych meds possibly contributing to Abdominal pain, patient currently would like to discuss with her Primary Psychiatrist and doesn't want any med changes Abd pain has improved Needs follow up with GI in 6-8 weeks CONSTIPATION no BMs for a few days now, although patient only has been on clear liquids since admission continue Senokot S + PRN Milk of Mg ordered RIGHT RING FINGER ABSCESS, RIGHT ARM CELLULITIS much improved continue IV Vanco Day 05/12 Ortho consulted: no plans for surgery at this time, appreciate the input HEPATOMEGALY/HEPATIC STEATOSIS monitor DEPRESSION AND ANXIETY continue usual medications Code Status: FULL CODE DVT Px Heparin SQ SCDs encouraged again to ambulate as much as possible Disposition: Plan to discharge home today Follow up with for Primary Care on 08/31/17 at 10:45AM Follow up with your marketing performance analyst in 4-6 weeks as advised Seek immediate medical attention if your symptoms reoccur or worsen Total time spent on discharge = 40 minutes This includes examination of the patient, discharge planning, medication reconciliation, and communication with other providers. Discharge Instructions Discharge Instructions Date of Service Aug 30, 2017. Admission Reason for Admission: Nausea,Vomiting,Diarrhea,Rt Sided Abdominal Pain Discharge Discharge Diagnosis / Problem: Possible Irritable Bowel Syndrome Discharge Goals Goal(s): Decrease discomfort, Improve function Activity Recommendations Activity Limitations: resume your previous activity Exercise/Sports Limitations: as tolerated . Instructions / Follow-Up Instructions / Follow-Up Follow up with for Primary Care on 08/31/17 at 10:45AM Follow up with your marketing performance analyst in 4-6 weeks as advised Follow the Dietary changes as recommended Seek immediate medical attention if your symptoms reoccur or worsen Current Hospital Diet Patient's current hospital diet: Low Fiber Diet Discharge Diet Recommended Diet: Low Fiber Diet Procedures Procedures Performed: EGD WITH BIOPSY Pending Studies Studies pending at discharge: no Laboratory Results Lipid Panel Test 06/02/17 07:28 Range/Units Triglycerides Level 120 0-150 mg/dl Cholesterol Level 158 0-200 mg/dl HDL Cholesterol 35 mg/dl Cholesterol/HDL Ratio 4.5 LDL Cholesterol, Calculated 99 mg/dl Work Instructions Additional Instructions: Can return to work after follow up with PCP on 08/31/17 Medical Emergencies . Who to Call and When: Medical Emergencies: If at any time you feel your situation is an emergency, please call 911 immediately. . Non-Emergent Contact Non-Emergency issues call your: Primary Care Provider, Tread Booker Call Non-Emergent contact if: you have a fever, your pain is not controlled, your pain is worsening, your pain is unusual for you, your pain is concerning you, you have any medication questions Seek immediate medical attention if your symptoms reoccur or worsen . . "Provider Documentation" section prepared by Nelson Willoughby. . VTE Core Measure Inpt VTE Proph given/why not?: Unfractionated heparin SQ <Electronically signed by Nelson Willoughby MD> Signed: 08/30/17 1227 Signed: The status of this report is Signed * If report status is Draft, the document has not been finalized by the responsible provider.
[2017-08-30 14:16] VITALS: BP 125/69; PULSE 57; TEMP 36.8; O2SAT 98
[2017-08-31] MEDS ORDERED: PANTOprazole SOD 40 MG TAB PO SCH (08:00)
[2017-09-01 11:28] LABS: COD UR NEGATIVE NG/ML (CUTOFF=50); HYDROCOD UR 142 NG/ML (CUTOFF=50); HYDROMOR UR NEGATIVE NG/ML (CUTOFF=50); HYDROXYETHYLFLURAZEPAM CONF NEGATIVE NG/ML (CUTOFF=50); HYDROXYMIDAZOLAM 596 NG/ML (CUTOFF=50); HYDROXYTRIAZOLAM CONF NEGATIVE NG/ML (CUTOFF=50); MORPHINE UR 151 NG/ML (CUTOFF=50); NORHYDROCODONE CONF UR 393 NG/ML (CUTOFF=50); OXYMORPH UR NEGATIVE NG/ML (CUTOFF=50); TEMAZEPAM CONF NEGATIVE NG/ML (CUTOFF=50)
== END 2017-08-30 16:00 | disposition home or self-care (01) | DRG 603 ==
LOC: C.EDB 17:21 → C.MS4W 23:02 → ENRESERV 23:17 → OBSVTOIN 08-25 09:21
PROVIDERS: ADMIT Internal Medicine; ATTEND Internal Medicine
PROC: 0HDFXZZ Extraction of Right Hand Skin, External Approach (ICD-10-PCS; 2017-08-25)
PROC: 0DB68ZX Excision of Stomach, Via Natural or Artificial Opening Endoscopic, Diagnostic (ICD-10-PCS; principal; 2017-08-28 08:27)
PROC: 0DB98ZX Excision of Duodenum, Via Natural or Artificial Opening Endoscopic, Diagnostic (ICD-10-PCS; principal; 2017-08-28 08:27)
DX: L02.511 Cutaneous abscess of right hand (principal); L03.113 Cellulitis of right upper limb; Z68.41 Body mass index [BMI] 40.0-44.9, adult; K58.9 Irritable bowel syndrome, unspecified; E86.0 Dehydration; K76.0 Fatty (change of) liver, not elsewhere classified; K59.00 Constipation, unspecified; F32.9 Major depressive disorder, single episode, unspecified; F41.9 Anxiety disorder, unspecified; K21.9 Gastro-esophageal reflux disease without esophagitis; E66.9 Obesity, unspecified; Z51.81 Encounter for therapeutic drug level monitoring; Z79.899 Other long term (current) drug therapy; Z82.49 Family history of ischemic heart disease and other diseases of the circulatory system; Z85.3 Personal history of malignant neoplasm of breast; Z83.3 Family history of diabetes mellitus